=== PATIENT | female | born 1995 | race Caucasian/White ===

== ENCOUNTER 2018-04-23 14:22 | Emergency (ER) | payer OTHER ==
[~2018-04-23] VITALS: Ht 157.5 cm; Wt 103.2 kg
[2018-04-23] MEDS ORDERED: SPIR-10 PO (16:59)
[2018-04-23] MEDS ORDERED: METO50TA7 PO (16:59)
[2018-04-23] MEDS ORDERED: CHLO125TA (16:59)
[2018-04-23] MEDS ORDERED: ALOG25TA PO (16:59)
[2018-04-23] MEDS ORDERED: SIMV20TA2 PO (16:59)
[2018-04-23] MEDS ORDERED: IBUP-1114 PO (16:59)
[2018-04-23] MEDS ORDERED: MONO0.25 PO (16:59)
[2018-04-23] MEDS ORDERED: METF10004 PO (16:59)
[2018-04-23] MEDS ORDERED: METHOCARBAMOL 750 MG TAB PO ONE (17:30)
[2018-04-23] MEDS ORDERED: KETOROLAC TROMETHAMINE 10 MG TAB PO ONE (17:30)
[2018-04-23] MEDS ORDERED: KETO10TAB PO (17:52)
[2018-04-23] MEDS ORDERED: CYCL5TAB PO (17:52)
[2018-04-23 18:01] VITALS: BP 163/97
[2018-05-10] MEDS ORDERED: TOPR25TA13 PO (20:22)
== END 2018-04-23 18:04 | disposition home or self-care (01) ==
LOC: M ED 14:22
DX: S39.012A Strain of muscle, fascia and tendon of lower back, initial encounter (principal); X58.XXXA Exposure to other specified factors, initial encounter; Y92.89 Other specified places as the place of occurrence of the external cause; R20.0 Anesthesia of skin; E11.9 Type 2 diabetes mellitus without complications; I10 Essential (primary) hypertension; E78.5 Hyperlipidemia, unspecified; Z88.0 Allergy status to penicillin

== ENCOUNTER 2018-05-10 14:56 | Inpatient (IN) | payer OTHER ==
[~2018-05-10] VITALS: Ht 157.5 cm; Wt 100.2 kg
[~2018-05-10 14:56] MED LIST: ALOG25TA PO; CHLO125TA; CYCL5TAB PO; IBUP-1114 PO; KETO10TAB PO; METF10004 PO; METO50TA7 PO; MONO0.25 PO; SIMV20TA2 PO; SPIR-10 PO
[2018-05-10 17:50] VITALS: BP 142/85
[2018-05-10] MEDS ORDERED: GLUCOSE 4 GM CHEW TABLET PO PRN (19:15)
[2018-05-10] MEDS ORDERED: GLUCAGON FOR INJ 1 MG VIAL (J1610) SC PRN (19:15)
[2018-05-10] MEDS ORDERED: DEXTROSE 50% 50 ML SYRINGE IV PRN (19:15)
[2018-05-10] MEDS ORDERED: diazePAM 5 MG TAB PO PRN (19:15)
--- NOTE | 2018-05-10 19:24 | HPEPDOC ---
Project Landscape Architect Note DATE OF ADMISSION: May 10, 2018 at 17:40 SOURCE OF ADMISSION INFORMATION: [facility] records and patient CHIEF COMPLAINT: Cauda Equina syndrome HISTORY OF PRESENT ILLNESS: 22F pmh HTN, PCOS, DM2, HLD, presented to [facility] ED on 05/06/18 complaining of bilateral lower extremity weakness after bending forward and feeling a flex ing sensation a few days earlier. At first she felt pain and later developed weakness with urinary incontinence and saddle region anesthesia. Lumbar Spine MRI on 05/06/18 showed, Disc protrusion with moderate canal stenosis is present at L3-L4 vertebral level. Disc protrusion with severe canal stenosis and compression of the cauda equine nerve roots is present at L4-L5 vertebral level. Disc bulging with moderate canal [id number]. The conus medullaris is positioned at L2 vertebral levelno increased signal in the spinal cord. She was evaluated by Dr. Bazzi who performed a L3-L5 decompressive laminectomy with L4/L5 and L5/S1 discectomies without complications. She reports that the strength in her legs improved significantly since the surgery, but reports weakness in her ankles and some persistent sensory loss in her feet. She initially was unable to have a bowel movement, but was able to have a small bowel movement on 05/10/18. She was evaluated by therapy and found to have significant mobility and ADL impairment and deemed medically appropriate for discharge to ARU on 05/10/18. REVIEW OF SYSTEMS: The following is a completed review of systems and has been reviewed. Review of systems otherwise unremarkable. PAIN: Patient self reports no pain EYES: Negative for recent vision changes EARS, NOSE, & THROAT:denies throat or ear pain, no dysphagia CARDIOVASCULAR: denies chest pain or palpitations PULMONARY: Negative. Denies shortness of breath GASTROINTESTINAL: +fecal incontinece GENITOURINARY: +urinary incontinence MUSCULOSKELETAL: bilateral LE weakness NEUROLOGICAL: +cauda equina HEMATOLOGICAL: Negative SKIN: +sacral pressure ulcer, laminectomy incision PSYCHIATRIC: Unremarkable All other review of systems found to be negative. PAST MEDICAL HISTORY: as per HPI PAST SURGICAL HISTORY: Dental Surgery, Tonsillectomy ALLERGIES: Please see below. MEDICATIONS: Please see below. 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 GENERAL: Pleasant and cooperative. No acute distress. HEENT: PERRL. Extraocular movements intact. Clear conjunctiva CARDIOVASCULAR: Regular rate and rhythm. No murmurs, rubs, or gallops LUNGS: Clear to auscultation bilaterally. No wheezes. No rhonchi ABDOMEN: Soft, nontender, nondistended. Positive bowel sounds. Normal active bowel sounds NEUROLOGICAL: Alert and oriented times three. Cranial nerves II through XII grossly intact. EXTREMITIES: 5\5 strength bilateral upper extremities. 4/5 bilateral hip flexors, 4/5 bilat knee extensors, 3/5 left ankle DF (lacking L5 contribution and unable to activate peroneus longus/brevis) 1/5 EHL, 3/5 ankle PF on left 0/5 right ankle DF or EHL, 2/5 ankle PF Sensation diminished to light touch right L4-S2 dermatomes, otherwise intact to light touch in all 4 limbs (-) Babinksi bilat, (-) clonus SKIN: lumbar incision c/d/i no surrounding erythema or induration, +sacral ulcer IMAGING: Imaging documentation personally reviewed by record FUNCTIONAL STATUS: Premorbid: Independent with all activities of daily life as well as mobility On Admission: max assist for Lower body dressing, total assist toileting, Max assist functional transfers, standing max x 2 using RW GOALS: CG-SBA for ambulation using a RW and stairs, independent in wheelchair mobility, Mod-I dressing, bathing, toileting, family training, assess for DME needs, medical optimization. ASSESSMENT:22-year-old F with past medical history of PCOS and HTN who presents status post cauda equina syndrome: PLAN: 1. Rehab: PT/OT and assess for DME-multipodus boots while in bed to stretch heel cords 2. Neuro: cauda equina syndrome s/p L3-L5 decompressive laminectomy with L4/L5 a nd L5/S1 discectomies performed 05/06/18, conus medullaris at L2 level-unclear at this time if spinal cord was affected in the setting of post-op edema, however inital imaging did not show cord signal abnormalitiies at L2 level -will monitor and manage lower motor neuron effects on bowel and bladder which usually present with low tone and incontinence -avoid NSAIDs, heavy lifting, and f/u with neurosurgery 3. CArdio:pmg HTN and HLDc/u home meds-medicne consulted 4. Endo: pmh PCOS and DM c/u spironolactone, metformin, and insulin coverage 5. Pain: oxycodone prn, gabapentin for neuropathic pain, will decrease valium dosing and hold for AMS or lethargy 6. : f/u admisison UA and Ucx, c/u aguilar for now 7. GI ppx: protonix, optimize bowel regimen, will order KUB and consider bulking agents 8. DVT ppx: heparin 9. SKin: turn q2, barrier cream to sacrum BID, optifoam to lumbar incision 10. DIspo: TBD POST ADMISSION PHYSICIAN EVALUATION: Medical and functional status: Description of medical status, medical assessment: As above. Rehabilitation diagnosis and current and prior cold morbid medical conditions as above. Risk of complications and plans to mitigate them as above. Description of functional status current status is as above. Prior status as above. Status compared to preadmission: There are no clinically significant differences between the patient's current status and the information described on the preadmission screening document. Treatment plan anticipated: Treatment plan is as described above. Required disciplines including physical therapy, occupational therapy, others as noted abov. Intensity of services: 3 hours a day, 6 days a week. Special considerations: There are no specific special or safety considerations that would likely preclude immediate implementation of an intensive rehabilitation program or subsequently influence the plan of care. ATTESTATION: Considering all the information above, it is my best judgment that this patient requires intensive rehabilitation therapy as described above and an inpatient hospital environment due to the complexity of nursing, medical, and rehabilitation needs required by the patient. Furthermore, this patient can reasonably be expected to participate in an benefit from an inpatient rehabilitation stay with an interdisciplinary team approach to the delivery of rehabilitation care under the direction and supervision of rehabilitation physician. PROGNOSIS: Excellent ESTIMATED LENGTH OF STAY:21-28 days. PROJECTED DISCHARGE DESTINATION: Home with family support and any durable medical equipment required to increase functional safety and mobility TIME SPENT COUNSELING AND COORDINATING INITIAL CARE: Greater than 70 minutes. Vital Signs Vital Signs Date Time Temp Pulse Resp B/P (MAP) Pulse Ox O2 Delivery O2 Flow Rate FiO2 05/10/18 17:50 95.8 53 18 142/85 (104) 95 Home Medications Scheduled ([place]-Linyah 0.25-35 mg-Mcg) 1 Tab Tab, 1 TAB PO DAILY, (Reported) HOME MED (Heparin Sodium) 5,000 Unit/5 Ml Inj, 5,000 UNIT SC TID, (Reported) GIVEN AT [facility] (Previfem 0.25-35 mg-Mcg) 1 Tab Tab, 1 TAB PO DAILY, (Reported) HOME MED Alogliptin Benzoate (Alogliptin) 25 Mg Tab, 25 MG PO DAILY, (Reported) HOME MED Chlorthalidone (Chlorthalidone) 50 Mg Tab, 25 MG PO DAILY, (Reported) HOME MED Gabapentin (Gabapentin) 300 Mg Cap, 300 MG PO TID, (Reported) HOME MED Glycerin (Glycerin Adult) 2 Gm Sup, 1 EA [place] DAILY, (Reported) Metformin Hydrochloride (Metformin HCl) 1,000 Mg Tab, 1,000 MG PO BIDWM, (Reported) HOME MED Metoprolol Succinate (Toprol Xl) 25 Mg Tab, 25 MG PO DAILY, (Reported) GIVEN AT [facility] Metoprolol Tartrate (Metoprolol Tartrate) 50 Mg Tab, 50 MG PO DAILY, (Reported) HOME MED Prednisone (Prednisone) 10 Mg Tab, 10 MG PO DAILY, (Reported) NEW MED FROM [facility] Senna (Senna-Lax) 8.6 Mg Tab, 2 TAB PO QHS, (Reported) Simvastatin (Simvastatin) 20 Mg Tab, 20 MG PO QHS, (Reported) HOME MED Spironolactone (Spironolactone) 25 Mg Tab, 25 MG PO DAILY, (Reported) HOME MED Scheduled PRN Acetaminophen (Acetaminophen) 325 Mg Tab, 650 MG PO Q4H PRN for PAIN, (Reported) Diazepam (Diazepam) 5 Mg Tab, 5 MG PO Q6H PRN for MUSCLE SPASMS, (Reported) GIVEN AT [facility] Oxycodone HCl (Oxycodone HCl) 5 Mg Tab, 5 MG PO Q4H PRN for PAIN, (Reported) GIVEN AT [facility] Polyethylene Glycol (Miralax) 1 Pow Pow, 17 GM PO DAILY PRN for CONSTIPATION, (Reported) dilute in 8 ounces of water or juice Allergies Coded Allergies: Penicillins (Verified Allergy, Unknown, 05/10/18) BRITTNY JENSEN MD May 10, 2018 19:24
[2018-05-10 20:00] VITALS: BP 128/86
[2018-05-10] MEDS ORDERED: MIRA3350 PO (20:22)
[2018-05-10] MEDS ORDERED: GLYC2SUP PR (20:22)
[2018-05-10] MEDS ORDERED: CHLO50TA PO (20:22)
[2018-05-10] MEDS ORDERED: TOPR25TA PO (20:22)
[2018-05-10] MEDS ORDERED: [UNRECOGNIZED DRUG - CODE] SC (20:22)
[2018-05-10] MEDS ORDERED: PREVTAB2 PO (20:22)
[2018-05-10] MEDS ORDERED: OXYC-517 PO (20:22)
[2018-05-10] MEDS ORDERED: DIAZ5TAB PO (20:22)
[2018-05-10] MEDS ORDERED: ACET1TAB55 PO (20:22)
[2018-05-10] MEDS ORDERED: PRED10TA2 PO (20:22)
[2018-05-10] MEDS ORDERED: SENN18TA PO (20:22)
[2018-05-10] MEDS ORDERED: GABA-843 PO (20:22)
[2018-05-10] MEDS: HumaLOG INSULIN (NovoLOG) PER UNIT SC SCH (21:00)
[2018-05-10] MEDS: SIMVASTATIN 20 MG TAB PO SCH (22:39)
[2018-05-10] MEDS: GABAPENTIN 300 MG CAP PO SCH (22:39)
[2018-05-10] MEDS: BOUDREAUX'S BUTT PASTE 4OZ TOP SCH (22:39)
[2018-05-10] MEDS: DOCUSATE SODIUM 100 MG CAP PO SCH (22:39)
[2018-05-10] MEDS: HEPARIN SOD (PORCINE) 5000 UNITS/ML VIAL SQ SCH (22:40)
[2018-05-10] MEDS: ACETAMINOPHEN TAB 650MG DOSE (2X325MG) PO PRN (22:40)
[2018-05-11 06:00] VITALS: BP 129/86
[2018-05-11] MEDS: HEPARIN SOD (PORCINE) 5000 UNITS/ML VIAL SQ SCH ×3 (06:00→21:18)
[2018-05-11 06:56] LABS: BASO # 0.1 10^3/uL (0.0-0.2); BASO % 0.4 % (0.0-1.0); EOS # 0.3 10^3/uL (0.0-0.50); EOS % 1.9 % (0.0-3.0); HEMATOCRIT 40.5 % (36.0-47.0); HEMOGLOBIN 13.9 g/dl (12.0-15.5); LYMPH # 2.2 10^3/uL (1.5-6.5); LYMPH % 16.2 % (24.0-44.0); MEAN CORPUSCULAR HEMOGLOBIN 29.3 pg (27.0-33.0); MEAN CORPUSCULAR HGB CONC 34.3 g/dl (32.0-36.5); MEAN CORPUSCULAR VOLUME 85.4 fl (80.0-96.0); MONO % 7.6 % (0.0-5.0); NEUTROPHILS # 9.8 10^3/uL (1.8-7.7); NEUTROPHILS % 73.2 % (36.0-66.0); PLATELET COUNT, AUTOMATED 407 10^3/uL (150-450); RED BLOOD COUNT 4.74 10^6/uL (4.00-5.40); WHITE BLOOD COUNT 13.4 10^3/uL (4.0-10.0)
[2018-05-11] MEDS: oxyCODONE 5MG TAB PO PRN ×2 (07:03→15:27)
[2018-05-11 07:22] LABS: ALT/SGPT 39 U/L (12-78); BILIRUBIN,TOTAL 0.6 MG/DL (0.2-1.0); BLOOD UREA NITROGEN 23 MG/DL (7-18); CALCIUM LEVEL 9.5 MG/DL (8.5-10.1); CARBON DIOXIDE LEVEL 31 MEQ/L (21-32); CHLORIDE LEVEL 95 MEQ/L (98-107); CREATININE FOR GFR 1.02 MG/DL (0.55-1.30); GLOMERULAR FILTRATION RATE > 60.0 (>60); GLUCOSE, FASTING 161 MG/DL (70-100); POTASSIUM SERUM 3.4 MEQ/L (3.5-5.1); SODIUM LEVEL 135 MEQ/L (136-145); TOTAL PROTEIN 8.3 GM/DL (6.4-8.2)
[2018-05-11] MEDS ORDERED: POTASSIUM CHLORIDE 10 MEQ SR TABLET PO ONE (08:45)
[2018-05-11] MEDS: metFORMIN (GLUCOPHAGE) 1000 MG TABLET PO SCH ×2 (08:53→16:58)
[2018-05-11] MEDS: CHLORTHALIDONE 25 MG TAB PO SCH (08:54)
[2018-05-11] MEDS: SPIRONOLACTONE 25 MG TAB PO SCH (08:54)
[2018-05-11] MEDS: HumaLOG INSULIN (NovoLOG) PER UNIT SC SCH ×4 (08:54→21:00)
[2018-05-11] MEDS: GABAPENTIN 300 MG CAP PO SCH ×3 (08:54→21:14)
[2018-05-11] MEDS: predniSONE 10 MG TAB PO SCH (08:54)
[2018-05-11] MEDS: BOUDREAUX'S BUTT PASTE 4OZ TOP SCH ×3 (08:57→21:00)
[2018-05-11] MEDS: METOPROLOL SUCC *XL* 25MG TAB (TopROL *XL*) PO SCH (08:57)
[2018-05-11] MEDS: DOCUSATE SODIUM 100 MG CAP PO SCH ×3 (09:02→21:14)
--- NOTE | 2018-05-11 10:45 | REP ---
KUB ABDOMEN/PELVIS: Two KUB films of abdomen and pelvis performed. Mild fecal material and air is seen throughout the colon. There is no evidence of small bowel obstruction. No abnormal calcifications are seen. IMPRESSION: Mild fecal retention. Electronically Signed by Stevenson iVncent MD 05/11/2018 07:51 P
--- NOTE | 2018-05-11 12:16 | CR.PDOC ---
General Date of Consultation: May 11, 2018 Consultation CONSULTATION REPORT FOR: Dr Teresa REASON FOR CONSULTATION: Medical Management ATTENDING: Dr. Jeremias Mishra PCP: Dr Humphrey HPI: 22F presented to [facility] ED on 05/06/18 with bilateral lower extremity weakness after bending forward and feeling a popping sensation a few days earlier. At first she felt pain and later developed weakness with urinary incontinence and saddle region anesthesia. Lumbar Spine MRI on 05/06/18 showed Disc protrusion with moderate canal stenosis is present at L3-L4 vertebral level.,disc protrusion with severe canal stenosis and compression of the cauda e quine nerve roots is present at L4-L5 vertebral level. Disc bulging with moderate canal stenosis L5-S1. The pt was evaluated by Dr. Bazzi who performed a L3-L5 decompressive laminectomy with L4/L5 and L5/S1 discectomies without complications. Pt states strength in her legs improved significantly since the surgery, but reports weakness in her ankles and some persistent sensory loss in her feet. She states she has had 2 BM this AM and states sensation is normal. The pt was transferred to the care of YFN Horan, 05/10/18. No acute medical complaints today. Denies any fevers, chills, weakness, fatigue, Headache, Chest Pain, Shortness of breath, cough, palpitations, abdominal pain, N/V/D or changes in bowel or bladder habits. PMHx/PSHx: HTN HLD DM PCOS Obesity. 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 PE: GEN: 22yoF, appears stated age. Well-nourished, well developed. No acute dist ress. Alert and oriented x 3. HEENT: Normocephalic, atraumatic. Sclera are nonicteric. Conjunctiva without injection. Moist mucous membranes. CHEST: Regular rate and rhythm, +S1, +S2 LUNGS: Clear to auscultation bilaterally. No wheezes, rales, or rhonchi. Breathing appears symmetric and easy. ABD: Round, soft, non-tender, non-distended. +Bowel sounds throughout. No rebound or guarding. No costovertebral angle tenderness. EXT: Pulses 2+ bilaterally dorsalis pedis and radial. No lower extremity edema appreciated. SKIN: [place], dry, warm. No rashes. NEURO: Alert and oriented x 3. No focal deficits appreciated. A&P: 22F presented to [facility] ED on 05/06/18 with bilateral lower extremity weakness after bending forward and feeling a popping sensation a few days earlier. At first she felt pain and later developed weakness with urinary incontinence and saddle region anesthesia. Lumbar Spine MRI on 05/06/18 showed Disc protrusion with moderate canal stenosis is present at L3-L4 vertebral level.,disc protrusion with severe canal stenosis and compression of the cauda equine nerve roots is present at L4-L5 vertebral level. Disc bulging with moderate canal stenosis L5-S1. The pt was evaluated by Dr. Bazzi who performed a L3-L5 decompressive laminectomy with L4/L5 and L5/S1 discectomies without complications. Pt states strength in her legs improved significantly since the surgery, but reports weakness in her ankles and some persistent sensory loss in her feet. She states she has had 2 BM this AM and states sensation is normal. The pt was transferred to the care of YFN Horan, 05/10/18. 1. L3-L5 decompressive laminectomy with L4/L5 and L5/S1 discectomies. Mgmt as per Neurosurgery, Dr Bazzi. [facility]. Outpt F/U with Dr Bazzi. Mgmt as per Dr Malick COULTER. PT/OT as per Dr Malick COULTER. Pain control as per Dr Malick COULTER. Bowel care as per Dr Malick COULTER. DVT prophylaxis as per Dr Malick COULTER. SQ Heparin. Disposition as per Dr Malick COULTER. Urinary retention/Guerra catheter as per Dr Malick COULTER. 2. HTN. Chlorthalidone/Toprol XL. BP 137/83. Monitor. 3. HLD Zocor. 4. DM. CC diet SSI. Metformin. BS 155-192. 5. PCOS. Metformin/Aldactone. 6. Hypokalemia. S/P po supplement x 1 today. BMP in AM. 7. Leukocytosis. Pt is afebrile. Recheck CBC in AM. Vital Signs/I&O Vital Signs Date Time Temp Pulse Resp B/P (MAP) Pulse Ox O2 Delivery O2 Flow Rate FiO2 05/11/18 08:57 110 137/83 05/11/18 07:33 18 05/11/18 06:00 97.9 95 I&O- Last 24 Hours up to 6 AM 05/11/18 06:00 Intake Total 440 ml Output Total 450 ml Balance -10 ml Laboratory Data Labs 24H Laboratory Tests 2 05/10/18 22:21: Bedside Glucose (Misc Panel) 192H 05/11/18 06:37: Immature Granulocyte % (Auto) 0.7, White Blood Count 13.4H, Red Blood Count 4.74, Hemoglobin 13.9, Hematocrit 40.5, Mean Corpuscular Volume 85.4, Mean Corpuscular Hemoglobin 29.3, Mean Corpuscular Hemoglobin Concent 34.3, Red Cell Distribution Width 12.0, Platelet Count 407, Neutrophils (%) (Auto) 73.2H, Lymphocytes (%) (Auto) 16.2L, Monocytes (%) (Auto) 7.6H, Eosinophils (%) (Auto) 1.9, Basophils (%) (Auto) 0.4, Neutrophils # (Auto) 9.8H, Lymphocytes # (Auto) 2.2, Monocytes # (Auto) 1.0H, Eosinophils # (Auto) 0.3, Basophils # (Auto) 0.1, Nucleated Red Blood Cells % (auto) 0.0, Anion Gap 9, Glomerular Filtration Rate > 60.0, Blood Urea Nitrogen 23H, Creatinine 1.02, Sodium Level 135L, Potassium Level 3.4L, Chloride Level 95L, Carbon Dioxide Level 31, Calcium Level 9.5, Aspartate Amino Transf (AST/SGOT) 21, Alanine Aminotransferase (ALT/SGPT) 39, Alkaline Phosphatase 90, Total Bilirubin 0.6, Total Protein 8.3H, Albumin 3.0L, Albumin/Globulin Ratio 0.57L 05/11/18 06:40: Bedside Glucose (Misc Panel) 155H CBC/BMP Laboratory Tests 05/11/18 06:37 Red Blood Count 4.74, Mean Corpuscular Volume 85.4, Mean Corpuscular Hemoglobin 29.3, Mean Corpuscular Hemoglobin Concent 34.3, Red Cell Distribution Width 12.0, Neutrophils (%) (Auto) 73.2 H, Lymphocytes (%) (Auto) 16.2 L, Monocytes (%) (Auto) 7.6 H, Eosinophils (%) (Auto) 1.9, Basophils (%) (Auto) 0.4, Neutrophils # (Auto) 9.8 H, Lymphocytes # (Auto) 2.2, Monocytes # (Auto) 1.0 H, Eosinophils # (Auto) 0.3, Basophils # (Auto) 0.1, Calcium Level 9.5, Aspartate Amino Transf (AST/SGOT) 21, Alanine Aminotransferase (ALT/SGPT) 39, Alkaline Phosphatase 90, Total Bilirubin 0.6, Total Protein 8.3 H, Albumin 3.0 L Allergies Coded Allergies: Penicillins (Verified Allergy, Unknown, 05/10/18) HIVES Home Medications Scheduled ([place]-Linyah 0.25-35 mg-Mcg) 1 Tab Tab, 1 TAB PO DAILY, (Reported) HOME MED (Heparin Sodium) 5,000 Unit/5 Ml Inj, 5,000 UNIT SC TID, (Reported) GIVEN AT [facility] (Previfem 0.25-35 mg-Mcg) 1 Tab Tab, 1 TAB PO DAILY, (Reported) HOME MED Alogliptin Benzoate (Alogliptin) 25 Mg Tab, 25 MG PO DAILY, (Reported) HOME MED Chlorthalidone (Chlorthalidone) 50 Mg Tab, 25 MG PO DAILY, (Reported) HOME MED Gabapentin (Gabapentin) 300 Mg Cap, 300 MG PO TID, (Reported) HOME MED Glycerin (Glycerin Adult) 2 Gm Sup, 1 EA [place] DAILY, (Reported) Metformin Hydrochloride (Metformin HCl) 1,000 Mg Tab, 1,000 MG PO BIDWM, (Reported) HOME MED Metoprolol Succinate (Toprol Xl) 25 Mg Tab, 25 MG PO DAILY, (Reported) GIVEN AT [facility] Metoprolol Tartrate (Metoprolol Tartrate) 50 Mg Tab, 50 MG PO DAILY, (Reported) HOME MED Prednisone (Prednisone) 10 Mg Tab, 10 MG PO DAILY, (Reported) NEW MED FROM [facility] Senna (Senna-Lax) 8.6 Mg Tab, 2 TAB PO QHS, (Reported) Simvastatin (Simvastatin) 20 Mg Tab, 20 MG PO QHS, (Reported) HOME MED Spironolactone (Spironolactone) 25 Mg Tab, 25 MG PO DAILY, (Reported) HOME MED Scheduled PRN Acetaminophen (Acetaminophen) 325 Mg Tab, 650 MG PO Q4H PRN for PAIN, (Reported) Diazepam (Diazepam) 5 Mg Tab, 5 MG PO Q6H PRN for MUSCLE SPASMS, (Reported) GIVEN AT [facility] Oxycodone HCl (Oxycodone HCl) 5 Mg Tab, 5 MG PO Q4H PRN for PAIN, (Reported) GIVEN AT [facility] Polyethylene Glycol (Miralax) 1 Pow Pow, 17 GM PO DAILY PRN for CONSTIPATION, (Reported) dilute in 8 ounces of water or juice Maria Teresa Liang May 11, 2018 12:16
[2018-05-11 14:00] VITALS: BP 140/84
[2018-05-11 18:35] LABS: APPEARANCE, URINE CLOUDY (CLEAR); BACTERIA, URINE AUTO NEGATIVE (NEGATIVE); BILIRUBIN, URINE AUTO NEGATIVE (NEGATIVE); BLOOD, URINE BLOOD 2+ (NEGATIVE); COLOR, URINE AMBER (YELLOW); GLUCOSE, URINE (UA) AUTO 1+ mg/dL (NEGATIVE); KETONE, URINE AUTO NEGATIVE (NEGATIVE); LEUKOCYTE ESTERASE, URINE AUTO NEGATIVE (NEGATIVE); MUCUS, URINE LARGE (NEGATIVE); NITRITE, URINE AUTO NEGATIVE (NEGATIVE); PROTEIN, URINE AUTO 2+ mg/dL (NEGATIVE); RBC, URINE AUTO 106 /HPF (0-3); SPECIFIC GRAVITY URINE AUTO 1.029 (1.002-1.035); SQUAMOUS EPITHELIAL CELL UR AU 5 /HPF (0-6); WBC, URINE AUTO 8 /HPF (0-3)
[2018-05-11 20:00] VITALS: BP 158/92
[2018-05-11] MEDS: SIMVASTATIN 20 MG TAB PO SCH (21:14)
[2018-05-12] MEDS: HEPARIN SOD (PORCINE) 5000 UNITS/ML VIAL SQ SCH ×3 (05:45→20:58)
[2018-05-12 06:00] VITALS: BP 139/88
[2018-05-12 06:51] LABS: BASO # 0.1 10^3/uL (0.0-0.2); BASO % 0.4 % (0.0-1.0); EOS # 0.3 10^3/uL (0.0-0.50); EOS % 1.7 % (0.0-3.0); HEMATOCRIT 39.5 % (36.0-47.0); HEMOGLOBIN 13.2 g/dl (12.0-15.5); LYMPH % 26.5 % (24.0-44.0); MEAN CORPUSCULAR HGB CONC 33.4 g/dl (32.0-36.5); MEAN CORPUSCULAR VOLUME 86.8 fl (80.0-96.0); MONO # 1.3 10^3/uL (0.0-0.8); MONO % 8.6 % (0.0-5.0); NEUTROPHILS # 9.4 10^3/uL (1.8-7.7); PLATELET COUNT, AUTOMATED 409 10^3/uL (150-450); RED BLOOD COUNT 4.55 10^6/uL (4.00-5.40); WHITE BLOOD COUNT 15.1 10^3/uL (4.0-10.0)
[2018-05-12 07:21] LABS: BLOOD UREA NITROGEN 25 MG/DL (7-18); CALCIUM LEVEL 9.5 MG/DL (8.5-10.1); CARBON DIOXIDE LEVEL 31 MEQ/L (21-32); CHLORIDE LEVEL 94 MEQ/L (98-107); CREATININE FOR GFR 0.97 MG/DL (0.55-1.30); GLOMERULAR FILTRATION RATE > 60.0 (>60); GLUCOSE, FASTING 164 MG/DL (70-100); POTASSIUM SERUM 3.1 MEQ/L (3.5-5.1); SODIUM LEVEL 134 MEQ/L (136-145)
[2018-05-12] MEDS: GABAPENTIN 300 MG CAP PO SCH ×3 (09:22→20:58)
[2018-05-12] MEDS: SPIRONOLACTONE 25 MG TAB PO SCH (09:22)
[2018-05-12] MEDS: metFORMIN (GLUCOPHAGE) 1000 MG TABLET PO SCH ×2 (09:22→18:12)
[2018-05-12] MEDS: DOCUSATE SODIUM 100 MG CAP PO SCH ×3 (09:22→20:58)
[2018-05-12] MEDS: METOPROLOL SUCC *XL* 25MG TAB (TopROL *XL*) PO SCH (09:25)
[2018-05-12] MEDS: CHLORTHALIDONE 25 MG TAB PO SCH (09:25)
[2018-05-12] MEDS: predniSONE 10 MG TAB PO SCH (09:25)
[2018-05-12] MEDS: HumaLOG INSULIN (NovoLOG) PER UNIT SC SCH ×4 (09:26→20:59)
[2018-05-12] MEDS: BOUDREAUX'S BUTT PASTE 4OZ TOP SCH ×3 (09:27→21:00)
[2018-05-12 14:00] VITALS: BP 140/90
[2018-05-12 16:20] LABS: MAGNESIUM LEVEL 2.3 MG/DL (1.8-2.4)
[2018-05-12 16:27] VITALS: BP 139/96
[2018-05-12] MEDS ORDERED: POTASSIUM CHLORIDE 10 MEQ SR TABLET PO ONE (17:00)
[2018-05-12 20:00] VITALS: BP 156/97
[2018-05-12] MEDS: SIMVASTATIN 20 MG TAB PO SCH (20:59)
[2018-05-13] MEDS: HEPARIN SOD (PORCINE) 5000 UNITS/ML VIAL SQ SCH ×3 (05:12→21:20)
[2018-05-13 06:00] VITALS: BP 134/89
[2018-05-13 06:29] LABS: HEMATOCRIT 39.4 % (36.0-47.0); HEMOGLOBIN 13.4 g/dl (12.0-15.5); MEAN CORPUSCULAR HEMOGLOBIN 28.8 pg (27.0-33.0); MEAN CORPUSCULAR VOLUME 84.5 fl (80.0-96.0); PLATELET COUNT, AUTOMATED 424 10^3/uL (150-450); RED BLOOD COUNT 4.66 10^6/uL (4.00-5.40); WHITE BLOOD COUNT 14.9 10^3/uL (4.0-10.0)
[2018-05-13] MEDS: GABAPENTIN 300 MG CAP PO SCH ×3 (08:39→21:20)
[2018-05-13] MEDS: CHLORTHALIDONE 25 MG TAB PO SCH (08:39)
[2018-05-13] MEDS: METOPROLOL SUCC *XL* 25MG TAB (TopROL *XL*) PO SCH (08:39)
[2018-05-13] MEDS: predniSONE 10 MG TAB PO SCH (08:39)
[2018-05-13] MEDS: DOCUSATE SODIUM 100 MG CAP PO SCH ×3 (08:39→21:20)
[2018-05-13] MEDS: SPIRONOLACTONE 25 MG TAB PO SCH (08:39)
[2018-05-13] MEDS: metFORMIN (GLUCOPHAGE) 1000 MG TABLET PO SCH ×2 (08:39→17:45)
[2018-05-13] MEDS: BOUDREAUX'S BUTT PASTE 4OZ TOP SCH ×3 (08:40→21:21)
[2018-05-13] MEDS: HumaLOG INSULIN (NovoLOG) PER UNIT SC SCH ×4 (08:40→21:00)
[2018-05-13 14:00] VITALS: BP 152/90
[2018-05-13 20:00] VITALS: BP 158/88
[2018-05-13] MEDS: SIMVASTATIN 20 MG TAB PO SCH (21:20)
[2018-05-14] MEDS: HEPARIN SOD (PORCINE) 5000 UNITS/ML VIAL SQ SCH ×3 (05:36→21:31)
[2018-05-14 06:22] VITALS: BP 134/89
[2018-05-14] MEDS: HumaLOG INSULIN (NovoLOG) PER UNIT SC SCH ×4 (08:49→21:00)
[2018-05-14] MEDS: DOCUSATE SODIUM 100 MG CAP PO SCH ×3 (08:50→21:31)
[2018-05-14] MEDS: metFORMIN (GLUCOPHAGE) 1000 MG TABLET PO SCH ×2 (08:50→17:41)
[2018-05-14] MEDS: predniSONE 10 MG TAB PO SCH (08:50)
[2018-05-14] MEDS: BOUDREAUX'S BUTT PASTE 4OZ TOP SCH ×3 (08:50→21:00)
[2018-05-14] MEDS: SPIRONOLACTONE 25 MG TAB PO SCH (08:50)
[2018-05-14] MEDS: METOPROLOL SUCC *XL* 25MG TAB (TopROL *XL*) PO SCH (08:50)
[2018-05-14] MEDS: CHLORTHALIDONE 25 MG TAB PO SCH (08:50)
[2018-05-14] MEDS: GABAPENTIN 300 MG CAP PO SCH ×3 (08:50→21:31)
[2018-05-14 09:09] LABS: HEMATOCRIT 39.1 % (36.0-47.0); MEAN CORPUSCULAR HEMOGLOBIN 28.5 pg (27.0-33.0); MEAN CORPUSCULAR HGB CONC 33.2 g/dl (32.0-36.5); MEAN CORPUSCULAR VOLUME 85.7 fl (80.0-96.0); PLATELET COUNT, AUTOMATED 437 10^3/uL (150-450); RED BLOOD COUNT 4.56 10^6/uL (4.00-5.40); WHITE BLOOD COUNT 14.9 10^3/uL (4.0-10.0)
[2018-05-14 09:27] LABS: BLOOD UREA NITROGEN 25 MG/DL (7-18); CALCIUM LEVEL 9.2 MG/DL (8.5-10.1); CARBON DIOXIDE LEVEL 30 MEQ/L (21-32); CHLORIDE LEVEL 98 MEQ/L (98-107); CREATININE FOR GFR 0.94 MG/DL (0.55-1.30); GLOMERULAR FILTRATION RATE > 60.0 (>60); GLUCOSE, FASTING 140 MG/DL (70-100); POTASSIUM SERUM 3.4 MEQ/L (3.5-5.1); SODIUM LEVEL 136 MEQ/L (136-145)
[2018-05-14] MEDS ORDERED: POTASSIUM CHLORIDE 10 MEQ SR TABLET PO ONE (12:00)
--- NOTE | 2018-05-14 12:00 | IPNPDOC ---
Date Seen The patient was seen on 05/14/18. Progress Note HPI: 22F presented to [facility] ED on 05/06/18 with bilateral lower extremity weakness after bending forward and feeling a popping sensation a few days earlier. At first she felt pain and later developed weakness with urinary incontinence and saddle region anesthesia. Lumbar Spine MRI on 05/06/18 showed Disc protrusion with moderate canal stenosis is present at L3-L4 vertebral level.,disc protrusion with severe canal stenosis and compression of the cauda equine nerve roots is present at L4-L5 vertebral level. Disc bulging with moderate canal stenosis L5-S1. The pt was evaluated by Dr. Bazzi who performed a L3-L5 decompressive laminectomy with L4/L5 and L5/S1 discectomies without complications. Pt states strength in her legs improved significantly since the surgery, but rep orts weakness in her ankles and some persistent sensory loss in her feet. She states she has had 2 BM this AM and states sensation is normal. The pt was transferred to the care of YFN Horan, 05/10/18. The pt states she has been OOB today and feels she is getting stronger, paresthesia in feet B/L is less pronounced. Denies any fevers, chills, weakness, fatigue, Headache, Chest Pain, Shortness of breath, cough, palpitations, abdominal pain, N/V/D or changes in bowel or bladder habits. PMHx/PSHx: HTN HLD DM PCOS Obesity. BMI 39.6 dental surgery tonsillectomy PE: GEN: 22yoF, appears stated age. Well-nourished, well developed. No acute distress. Alert and oriented x 3. HEENT: Normocephalic, atraumatic. Sclera are nonicteric. Conjunctiva without injection. Moist mucous membranes. CHEST: Regular rate and rhythm, +S1, +S2 LUNGS: Clear to auscultation bilaterally. No wheezes, rales, or rhonchi. Breathing appears symmetric and easy. ABD: Round, soft, non-tender, non-distended. +Bowel sounds throughout. No rebound or guarding. No costovertebral angle tenderness. EXT: Pulses 2+ bilaterally dorsalis pedis and radial. No lower extremity edema appreciated. SKIN: [place], dry, warm. No rashes. NEURO: Alert and oriented x 3. No focal deficits appreciated. A&P: 22F presented to [facility] ED on 05/06/18 with bilateral lower extremity weakness after bending forward and feeling a popping sensation a few days earlier. At first she felt pain and later developed weakness with urinary incontinence and saddle region anesthesia. Lumbar Spine MRI on 05/06/18 showed Disc protrusion with moderate canal stenosis is present at L3-L4 vertebral level.,disc protrusion with severe canal stenosis and compression of the cauda equine nerve roots is present at L4-L5 vertebral level. Disc bulging with moderate canal stenosis L5-S1. The pt was evaluated by Dr. Bazzi who performed a L3-L5 decompressive laminectomy with L4/L5 and L5/S1 discectomies without complications. Pt states strength in her legs improved significantly since the surgery, but reports weakness in her ankles and some persistent sensory loss in her feet. She states she has had 2 BM this AM and states sensation is normal. The pt was transferred to the care of YFN Horan, 05/10/18. 1. L3-L5 decompressive laminectomy with L4/L5 and L5/S1 discectomies. Mgmt as per Neurosurgery, Dr Bazzi. [facility]. Outpt F/U with Dr Bazzi. Mgmt as per Dr Malick COULTER. PT/OT as per Dr Malick COULTER. Pain control as per Dr Malick COULTER. Bowel care as per Dr Malick COULTER. DVT prophylaxis as per Dr Malick COULTER. SQ Heparin. Disposition as per Dr Malick COULTER. Urinary retention/Guerra catheter as per Dr Malick COULTER. 2. HTN. Chlorthalidone/Toprol XL. Monitor. 3. HLD Zocor. 4. DM. CC diet SSI. Metformin. 5. PCOS. Metformin/Aldactone. 6. Hypokalemia. S/P po supplement x 1 today. BMP in AM. 7. Leukocytosis. Pt is afebrile. Recheck CBC in AM. VS, I&O, 24H, Fishbone Vital Signs/I&O Vital Signs Date Time Temp Pulse Resp B/P (MAP) Pulse Ox O2 Delivery O2 Flow Rate FiO2 05/14/18 08:50 90 134/89 05/14/18 06:22 97.2 16 96 I&O- Last 24 Hours up to 6 AM 3/25/19 06:00 Intake Total 530 ml Output Total 1150 ml Balance -620 ml Laboratory Data 24H LABS Laboratory Tests 2 05/13/18 16:55: Bedside Glucose (Misc Panel) 321H 05/13/18 19:34: Bedside Glucose (Misc Panel) 222H 05/14/18 05:34: Bedside Glucose (Misc Panel) 156H 05/14/18 08:47: Nucleated Red Blood Cells % (auto) 0.0, Anion Gap 8, Glomerular Filtration Rate > 60.0, Blood Urea Nitrogen 25H, Creatinine 0.94, Sodium Level 136, Potassium Level 3.4L, Chloride Level 98, Carbon Dioxide Level 30, Calcium Level 9.2 05/14/18 11:44: Bedside Glucose (Misc Panel) 178H CBC/BMP Laboratory Tests 05/14/18 08:47 Red Blood Count 4.56, Mean Corpuscular Volume 85.7, Mean Corpuscular Hemoglobin 28.5, Mean Corpuscular Hemoglobin Concent 33.2, Red Cell Distribution Width 12.0, Calcium Level 9.2 Microbiology Microbiology 05/11/18 Urine Culture - Final, Complete Maria Teresa Liang May 14, 2018 11:59
[2018-05-14 14:00] VITALS: BP 137/92
[2018-05-14] MEDS: MIRALAX *UNIT DOSE* 17GM PACKET PO PRN (14:21)
[2018-05-14 20:00] VITALS: BP 152/88
[2018-05-14] MEDS: SIMVASTATIN 20 MG TAB PO SCH (21:31)
[2018-05-15] MEDS: HEPARIN SOD (PORCINE) 5000 UNITS/ML VIAL SQ SCH ×3 (05:30→21:07)
[2018-05-15 05:37] VITALS: BP 135/97
[2018-05-15 07:04] LABS: HEMATOCRIT 38.2 % (36.0-47.0); MEAN CORPUSCULAR HEMOGLOBIN 28.7 pg (27.0-33.0); MEAN CORPUSCULAR VOLUME 84.3 fl (80.0-96.0); PLATELET COUNT, AUTOMATED 437 10^3/uL (150-450); RED BLOOD COUNT 4.53 10^6/uL (4.00-5.40)
[2018-05-15 07:38] LABS: ALT/SGPT 28 U/L (12-78); BILIRUBIN,TOTAL 0.4 MG/DL (0.2-1.0); BLOOD UREA NITROGEN 25 MG/DL (7-18); CARBON DIOXIDE LEVEL 29 MEQ/L (21-32); CHLORIDE LEVEL 97 MEQ/L (98-107); CREATININE FOR GFR 0.96 MG/DL (0.55-1.30); GLOMERULAR FILTRATION RATE > 60.0 (>60); GLUCOSE, FASTING 161 MG/DL (70-100); MAGNESIUM LEVEL 2.1 MG/DL (1.8-2.4); SODIUM LEVEL 135 MEQ/L (136-145); TOTAL PROTEIN 7.4 GM/DL (6.4-8.2)
[2018-05-15] MEDS: SPIRONOLACTONE 25 MG TAB PO SCH ×2 (08:21→21:07)
[2018-05-15] MEDS: MIRALAX *UNIT DOSE* 17GM PACKET PO PRN (08:21)
[2018-05-15] MEDS: predniSONE 10 MG TAB PO SCH (08:22)
[2018-05-15] MEDS: DOCUSATE SODIUM 100 MG CAP PO SCH ×3 (08:22→21:06)
[2018-05-15] MEDS: METOPROLOL SUCC *XL* 25MG TAB (TopROL *XL*) PO SCH (08:22)
[2018-05-15] MEDS: HumaLOG INSULIN (NovoLOG) PER UNIT SC SCH ×4 (08:22→20:51)
[2018-05-15] MEDS: CHLORTHALIDONE 25 MG TAB PO SCH (08:22)
[2018-05-15] MEDS: GABAPENTIN 300 MG CAP PO SCH ×3 (08:22→21:06)
[2018-05-15] MEDS: metFORMIN (GLUCOPHAGE) 1000 MG TABLET PO SCH ×2 (08:22→17:15)
[2018-05-15] MEDS: BOUDREAUX'S BUTT PASTE 4OZ TOP SCH ×3 (08:23→21:11)
[2018-05-15] MEDS ORDERED: POTASSIUM CHLORIDE 10 MEQ SR TABLET PO ONE ×2 (09:45→13:00)
--- NOTE | 2018-05-15 11:05 | IPNPDOC ---
Date Seen The patient was seen on 05/15/18. Progress Note HPI: 22F presented to [facility] ED on 05/06/18 with bilateral lower extremity weakness after bending forward and feeling a popping sensation a few days earlier. At first she felt pain and later developed weakness with urinary incontinence and saddle region anesthesia. Lumbar Spine MRI on 05/06/18 showed Disc protrusion with moderate canal stenosis is present at L3-L4 vertebral level.,disc protrusion with severe canal stenosis and compression of the cauda equine nerve roots is present at L4-L5 vertebral level. Disc bulging with moderate canal stenosis L5-S1. The pt was evaluated by Dr. Bazzi who performed a L3-L5 decompressive laminectomy with L4/L5 and L5/S1 discectomies without complications. Pt states strength in her legs improved significantly since the surgery, but rep orts weakness in her ankles and some persistent sensory loss in her feet. She states she has had 2 BM this AM and states sensation is normal. The pt was transferred to the care of YFN Horan, 05/10/18. The pt states she has been OOB today and feels she is getting stronger day by day, paresthesia in feet B/L is less pronounced. Denies any fevers, chills, weakness, fatigue, Headache, Chest Pain, Shortness of breath, cough, palpitations, abdominal pain, N/V/D or changes in bowel or bladder habits. PMHx/PSHx: HTN HLD DM PCOS Obesity. BMI 39.6 dental surgery tonsillectomy PE: GEN: 22yoF, appears stated age. Well-nourished, well developed. No acute distress. Alert and oriented x 3. HEENT: Normocephalic, atraumatic. Sclera are nonicteric. Conjunctiva without i njection. Moist mucous membranes. CHEST: Regular rate and rhythm, +S1, +S2 LUNGS: Clear to auscultation bilaterally. No wheezes, rales, or rhonchi. Breathing appears symmetric and easy. ABD: Round, soft, non-tender, non-distended. +Bowel sounds throughout. No rebound or guarding. No costovertebral angle tenderness. EXT: Pulses 2+ bilaterally dorsalis pedis and radial. No lower extremity edema appreciated. SKIN: [place], dry, warm. No rashes. NEURO: Alert and oriented x 3. No focal deficits appreciated. A&P: 22F presented to [facility] ED on 05/06/18 with bilateral lower extremity weakness after bending forward and feeling a popping sensation a few days earlier. At first she felt pain and later developed weakness with urinary incontinence and saddle region anesthesia. Lumbar Spine MRI on 05/06/18 showed Disc protrusion with moderate canal stenosis is present at L3-L4 vertebral level.,disc protrusion with severe canal stenosis and compression of the cauda equine nerve roots is present at L4-L5 vertebral level. Disc bulging with moderate canal stenosis L5-S1. The pt was evaluated by Dr. Bazzi who performed a L3-L5 decompressive laminectomy with L4/L5 and L5/S1 discectomies without complications. Pt states strength in her legs improved significantly since the surgery, but reports weakness in her ankles and some persistent sensory loss in her feet. She states she has had 2 BM this AM and states sensation is normal. The pt was transferred to the care of YFN Horan, 05/10/18. 1. L3-L5 decompressive laminectomy with L4/L5 and L5/S1 discectomies. Mgmt as per Neurosurgery, Dr Bazzi. [facility]. Outpt F/U with Dr Bazzi. Mgmt as per Dr Malick COULTER. PT/OT as per Dr Malick COULTER. Pain control as per Dr Malick COULTER. Bowel care as per Dr Malick COULTER. DVT prophylaxis as per Dr Malick COULTER. SQ Heparin. Disposition as per Dr Malick COULTER. Urinary retention/Guerra catheter as per Dr Malick COULTER. 2. HTN. Chlorthalidone/Toprol XL. Monitor. 3. HLD Zocor. 4. DM. CC diet SSI. Metformin. 5. PCOS. Metformin/Aldactone. 6. Hypokalemia. S/P po supplement x 2 doses today. mag WNL. BMP in AM. 7. Leukocytosis. Pt is afebrile. Asymptomatic. Monitor. VS, I&O, 24H, Fishbone Vital Signs/I&O Vital Signs Date Time Temp Pulse Resp B/P (MAP) Pulse Ox O2 Delivery O2 Flow Rate FiO2 05/15/18 08:22 90 135/97 05/15/18 05:37 96.8 16 97 I&O- Last 24 Hours up to 6 AM 05/15/18 06:00 Intake Total 1075 ml Output Total 600 ml Balance 475 ml Laboratory Data 24H LABS Laboratory Tests 2 05/14/18 11:44: Bedside Glucose (Misc Panel) 178H 05/14/18 16:38: Bedside Glucose (Misc Panel) 178H 05/14/18 20:13: Bedside Glucose (Misc Panel) 111H 05/15/18 05:49: Bedside Glucose (Misc Panel) 165H 05/15/18 06:43: Nucleated Red Blood Cells % (auto) 0.0, Anion Gap 9, Glomerular Filtration Rate > 60.0, Blood Urea Nitrogen 25H, Creatinine 0.96, Sodium Level 135L, Potassium Level 3.0L, Chloride Level 97L, Carbon Dioxide Level 29, Calcium Level 9.0, Aspartate Amino Transf (AST/SGOT) 13, Alanine Aminotransferase (ALT/SGPT) 28, Alkaline Phosphatase 74, Total Bilirubin 0.4, Total Protein 7.4, Albumin 3.0L, Magnesium Level 2.1, Albumin/Globulin Ratio 0.68L CBC/BMP Laboratory Tests 05/15/18 06:43 Red Blood Count 4.53, Mean Corpuscular Volume 84.3, Mean Corpuscular Hemoglobin 28.7, Mean Corpuscular Hemoglobin Concent 34.0, Red Cell Distribution Width 11.9, Calcium Level 9.0, Aspartate Amino Transf (AST/SGOT) 13, Alanine Aminotransferase (ALT/SGPT) 28, Alkaline Phosphatase 74, Total Bilirubin 0.4, Total Protein 7.4, Albumin 3.0 L Microbiology Microbiology 05/11/18 Urine Culture - Final, Complete Maria Teresa Linag May 15, 2018 11:05
[2018-05-15 14:00] VITALS: BP 150/100
[2018-05-15] MEDS ORDERED: METOPROLOL TART 25 MG TABLET PO ONE (16:45)
--- NOTE | 2018-05-15 18:48 | IPNPDOC ---
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 REVIEW OF SYSTEMS: The following is a completed review of systems and has been reviewed. Review of systems otherwise unremarkable. PAIN: Patient self reports no pain EYES: Negative for recent vision changes EARS, NOSE, & THROAT:denies throat or ear pain, no dysphagia CARDIOVASCULAR: denies chest pain or palpitations PULMONARY: Negative. Denies shortness of breath GASTROINTESTINAL: +fecal incontinence (improving) GENITOURINARY: +urinary incontinence MUSCULOSKELETAL: bilateral LE weakness NEUROLOGICAL: +cauda equina HEMATOLOGICAL: Negative SKIN: +sacral pressure ulcer, laminectomy incision PSYCHIATRIC: Unremarkable All other review of systems found to be negative. PHYSICAL EXAMINATION: VITAL SIGNS: Please see below. GENERAL: Pleasant and cooperative. No acute distress. HEENT: PERRL. Extraocular movements intact. Clear conjunctiva CARDIOVASCULAR: Regular rate and rhythm. No murmurs, rubs, or gallops LUNGS: Clear to auscultation bilaterally. No wheezes. No rhonchi ABDOMEN: Soft, nontender, nondistended. Positive bowel sounds. Normal active bowel sounds NEUROLOGICAL: Alert and oriented times three. Cranial nerves II through XII grossly intact. EXTREMITIES: 5\5 strength bilateral upper extremities. 4/5 bilateral hip fle xors, 4/5 bilat knee extensors, 3/5 left ankle DF (lacking L5 contribution and unable to activate peroneus longus/brevis) 1/5 EHL, 3/5 ankle PF on left 0/5 right ankle DF or EHL, 2/5 ankle PF Sensation diminished to light touch right L4-S2 dermatomes, otherwise intact to light touch in all 4 limbs (-) Babinksi bilat, (-) clonus ASSESSMENT:22-year-old F with past medical history of PCOS and HTN who presents status post cauda equina syndrome: PLAN: 1. Rehab: PT/OT and assess for DME-multipodus boots while in bed to stretch heel cords 2. Neuro: cauda equina syndrome s/p L3-L5 decompressive laminectomy with L4/L5 and L5/S1 discectomies performed 05/06/18, conus medullaris at L2 level-unclear at this time if spinal cord was affected in the setting of post-op edema, however inital imaging did not show cord signal abnormalitiies at L2 level -will monitor and manage lower motor neuron effects on bowel and bladder which usually present with low tone and incontinence -avoid NSAIDs, heavy lifting, and f/u with neurosurgery 3. CArdio:pmg HTN and HLD-will increase Spironolactone for elevated BPs in setting of mild hypokalemia-medicine consulted 4. Endo: pmh PCOS and DM c/u spironolactone, metformin, and insulin coverage 5. Pain: oxycodone prn, gabapentin for neuropathic pain, will d/c valium as not taking 6. :admisison UA and Ucx negative, c/u aguilar for now 7. GI ppx: protonix, optimize bowel regimen, KUB +small amount of fecal retention, c/u bowel meds 8. DVT ppx: heparin 9. SKin: turn q2, barrier cream to sacrum BID, silver optifoam to lumbar incision 10. DIspo: TBD Allergies Coded Allergies: Penicillins (Verified Allergy, Intermediate, hives, 05/16/18) Vital Signs Vital Signs Date Time Temp Pulse Resp B/P (MAP) Pulse Ox O2 Delivery O2 Flow Rate FiO2 05/15/18 17:16 111 150/100 05/15/18 14:00 97.7 17 97 Laboratory Data CBC/BMP Laboratory Tests 05/15/18 06:43 Red Blood Count 4.53, Mean Corpuscular Volume 84.3, Mean Corpuscular Hemoglobin 28.7, Mean Corpuscular Hemoglobin Concent 34.0, Red Cell Distribution Width 11.9, Calcium Level 9.0, Aspartate Amino Transf (AST/SGOT) 13, Alanine Aminotransferase (ALT/SGPT) 28, Alkaline Phosphatase 74, Total Bilirubin 0.4, Total Protein 7.4, Albumin 3.0 L Labs 24H Laboratory Tests 2 05/14/18 20:13: Bedside Glucose (Misc Panel) 111H 05/15/18 05:49: Bedside Glucose (Misc Panel) 165H 05/15/18 06:43: Nucleated Red Blood Cells % (auto) 0.0, Anion Gap 9, Glomerular Filtration Rate > 60.0, Blood Urea Nitrogen 25H, Creatinine 0.96, Sodium Level 135L, Potassium Level 3.0L, Chloride Level 97L, Carbon Dioxide Level 29, Calcium Level 9.0, Aspartate Amino Transf (AST/SGOT) 13, Alanine Aminotransferase (ALT/SGPT) 28, Alkaline Phosphatase 74, Total Bilirubin 0.4, Total Protein 7.4, Albumin 3.0L, Magnesium Level 2.1, Albumin/Globulin Ratio 0.68L 05/15/18 11:41: Bedside Glucose (Misc Panel) 155H 05/15/18 17:02: Bedside Glucose (Misc Panel) 80 Microbiology Microbiology 05/11/18 Urine Culture - Final, Complete Current Medications Current Medications Current Medications Acetaminophen (Tylenol Tab) 650 mg Q4HP PRN PO fever/MILD PAIN (PS 1-4) Last administered on 05/10/18at 22:40; Start 05/10/18 at 19:15 Chlorthalidone (Hygroton) 25 mg DAILY PO Last administered on 05/15/18at 08:22; Start 05/11/18 at 09:00 Dextrose (Dextrose 50%) 25 ml ASDIRECTED PRN IV SEE LABEL COMMENTS; Start 05/10/18 at 19:15 Diazepam (Valium) 5 mg Q8HP PRN PO ANXIETY; Start 05/10/18 at 19:15 Docusate Sodium (Colace) 100 mg TID PO Last administered on 05/15/18at 15:46; Start 05/10/18 at 21:00 Gabapentin (Neurontin) 300 mg TID PO Last administered on 05/15/18at 15:47; Start 05/10/18 at 21:00 Glucagon (Glucagon) 1 mg ASDIRECTED PRN SC SEE LABEL COMMENTS; Start 05/10/18 at 19:15 Glucose (Glucose) 16 GM ASDIRECTED PRN PO SEE LABEL COMMENTS; Start 05/10/18 at 19:15 Heparin Sodium (Porcine) (Heparin) 5,000 units Q8H SQ Last administered on 05/15/18at 15:47; Start 05/10/18 at 22:00 Home Med (Med Rec Complete!) ASDIRECTED XX ; Start 05/10/18 at 20:30; Stop 05/10/18 at 20:30; Status DC Insulin Human Lispro (HumaLOG INSULIN) SEE PROTOCOL TABLE AC SC Last administered on 05/15/18at 12:19; Start 05/11/18 at 07:30 Insulin Human Lispro (HumaLOG INSULIN) SEE PROTOCOL TABLE QHS SC ; Start 05/10/18 at 21:00 Metformin HCl (Glucophage) 1,000 mg BID@08,18 PO Last administered on 05/15/18 17:15; Start 05/11/18 at 08:00 Metoprolol Succinate (TopROL XL) 25 mg DAILY PO Last administered on 05/15/18 08:22; Start 05/11/18 at 09:00 Oxycodone HCl (Roxicodone, Oxyir) 5 mg Q4HP PRN PO PAIN Last administered on 05/11/18 15:27; Start 05/10/18 at 19:15 Polyethylene Glycol (Miralax) 1 pkt DAILYPRN PRN PO CONSTIPATION Last administered on 05/15/18 08:21; Start 05/14/18 at 13:30 Prednisone (Deltasone) 10 mg DAILY PO Last administered on 05/15/18 08:22; Start 05/11/18 at 09:00 Simvastatin (Zocor) 20 mg QHS PO Last administered on 05/14/18 21:31; Start 05/10/18 at 21:00 Spironolactone (Aldactone) 25 mg QAM PO Last administered on 05/15/18 08:21; Start 05/11/18 at 09:00 Zinc Oxide (Boudreauxs Butt Paste) APPLY TO AFFECTED AREA TID TOP Last administered on 05/15/18 15:48; Start 05/10/18 at 21:00 BRITTNY DODGE MD May 15, 2018 18:48
[2018-05-15 20:00] VITALS: BP 142/93
[2018-05-15] MEDS: SIMVASTATIN 20 MG TAB PO SCH (21:06)
[2018-05-16 05:00] VITALS: BP 133/95
[2018-05-16] MEDS: HEPARIN SOD (PORCINE) 5000 UNITS/ML VIAL SQ SCH ×3 (05:25→21:27)
[2018-05-16 07:18] LABS: HEMATOCRIT 39.4 % (36.0-47.0); HEMOGLOBIN 13.2 g/dl (12.0-15.5); MEAN CORPUSCULAR HEMOGLOBIN 28.6 pg (27.0-33.0); MEAN CORPUSCULAR HGB CONC 33.5 g/dl (32.0-36.5); MEAN CORPUSCULAR VOLUME 85.3 fl (80.0-96.0); PLATELET COUNT, AUTOMATED 435 10^3/uL (150-450); RED BLOOD COUNT 4.62 10^6/uL (4.00-5.40); WHITE BLOOD COUNT 14.4 10^3/uL (4.0-10.0)
[2018-05-16 07:44] LABS: BLOOD UREA NITROGEN 20 MG/DL (7-18); CALCIUM LEVEL 9.2 MG/DL (8.5-10.1); CARBON DIOXIDE LEVEL 31 MEQ/L (21-32); CHLORIDE LEVEL 97 MEQ/L (98-107); CREATININE FOR GFR 0.95 MG/DL (0.55-1.30); GLOMERULAR FILTRATION RATE > 60.0 (>60); GLUCOSE, FASTING 166 MG/DL (70-100); POTASSIUM SERUM 3.5 MEQ/L (3.5-5.1); SODIUM LEVEL 135 MEQ/L (136-145)
[2018-05-16] MEDS: DOCUSATE SODIUM 100 MG CAP PO SCH ×3 (08:33→21:28)
[2018-05-16] MEDS: CHLORTHALIDONE 25 MG TAB PO SCH (08:33)
[2018-05-16] MEDS: predniSONE 10 MG TAB PO SCH (08:33)
[2018-05-16] MEDS: SPIRONOLACTONE 25 MG TAB PO SCH ×2 (08:33→21:27)
[2018-05-16] MEDS: GABAPENTIN 300 MG CAP PO SCH ×3 (08:33→21:28)
[2018-05-16] MEDS: metFORMIN (GLUCOPHAGE) 1000 MG TABLET PO SCH ×2 (08:33→17:46)
[2018-05-16] MEDS: METOPROLOL SUCC *XL* 25MG TAB (TopROL *XL*) PO SCH (08:34)
[2018-05-16] MEDS: HumaLOG INSULIN (NovoLOG) PER UNIT SC SCH ×4 (08:34→20:07)
[2018-05-16] MEDS: BOUDREAUX'S BUTT PASTE 4OZ TOP SCH ×3 (08:35→21:27)
[2018-05-16 14:00] VITALS: BP 134/77
--- NOTE | 2018-05-16 14:23 | IPNPDOC ---
Date Seen The patient was seen on 05/16/18. Progress Note HPI: 22F presented to [facility] ED on 05/06/18 with bilateral lower extremity weakness after bending forward and feeling a popping sensation a few days earlier. At first she felt pain and later developed weakness with urinary incontinence and saddle region anesthesia. Lumbar Spine MRI on 05/06/18 showed Disc protrusion with moderate canal stenosis is present at L3-L4 vertebral level.,disc protrusion with severe canal stenosis and compression of the cauda equine nerve roots is present at L4-L5 vertebral level. Disc bulging with moderate canal stenosis L5-S1. The pt was evaluated by Dr. Bazzi who performed a L3-L5 decompressive laminectomy with L4/L5 and L5/S1 discectomies without complications. Pt states strength in her legs improved significantly since the surgery, but rep orts weakness in her ankles and some persistent sensory loss in her feet. She states she has had 2 BM this AM and states sensation is normal. The pt was transferred to the care of YFN Horan, 05/10/18. The pt states she has been OOB today and feels she is getting stronger in LEs, paresthesia in feet B/L is less pronounced. Denies any fevers, chills, weakness, fatigue, Headache, Chest Pain, Shortness of breath, cough, palpitations, abdominal pain, N/V/D or changes in bowel or bladder habits. PMHx/PSHx: HTN HLD DM PCOS Obesity. BMI 39.6 dental surgery tonsillectomy PE: GEN: 22yoF, appears stated age. Well-nourished, well developed. No acute distress. Alert and oriented x 3. HEENT: Normocephalic, atraumatic. Sclera are nonicteric. Conjunctiva without injection. Moist mucous membranes. CHEST: Regular rate and rhythm, +S1, +S2 LUNGS: Clear to auscultation bilaterally. No wheezes, rales, or rhonchi. Breathing appears symmetric and easy. ABD: Round, soft, non-tender, non-distended. +Bowel sounds throughout. No rebound or guarding. No costovertebral angle tenderness. EXT: Pulses 2+ bilaterally dorsalis pedis and radial. No lower extremity edema appreciated. SKIN: [place], dry, warm. No rashes. NEURO: Alert and oriented x 3. No focal deficits appreciated. A&P: 22F presented to [facility] ED on 05/06/18 with bilateral lower extremity weakness after bending forward and feeling a popping sensation a few days earlier. At first she felt pain and later developed weakness with urinary incontinence and saddle region anesthesia. Lumbar Spine MRI on 05/06/18 showed Disc protrusion with moderate canal stenosis is present at L3-L4 vertebral level.,disc protrusion with severe canal stenosis and compression of the cauda equine nerve roots is present at L4-L5 vertebral level. Disc bulging with moderate canal stenosis L5-S1. The pt was evaluated by Dr. Bazzi who performed a L3-L5 decompressive laminectomy with L4/L5 and L5/S1 discectomies without complications. Pt states strength in her legs improved significantly since the surgery, but reports weakness in her ankles and some persistent sensory loss in her feet. She states she has had 2 BM this AM and states sensation is normal. The pt was transferred to the care of YFN Horan, 05/10/18. 1. L3-L5 decompressive laminectomy with L4/L5 and L5/S1 discectomies. Mgmt as per Neurosurgery, Dr Bazzi. [facility]. Outpt F/U with Dr Bazzi. Mgmt as per Dr Malick COULTER. PT/OT as per Dr Malick COULTER. Pain control as per Dr Malick COULTER. Bowel care as per Dr Malick COULTER. DVT prophylaxis as per Dr Malick COULTER. SQ Heparin. Disposition as per Dr Malick COULTER. Urinary retention. Guerra catheter removed. Mgmt as per Dr Malick COULTER. 2. HTN. Chlorthalidone/Toprol XL. Monitor. 3. HLD Zocor. 4. DM. CC diet SSI. Metformin. 5. PCOS. Metformin/Aldactone. 6. Hypokalemia. S/P po supplement x 2 doses 05/15/18. mag WNL. Aldactone dose increased. BMP in AM. 7. Leukocytosis. Pt is afebrile. Asymptomatic. Monitor. VS, I&O, 24H, Fishbone Vital Signs/I&O Vital Signs Date Time Temp Pulse Resp B/P (MAP) Pulse Ox O2 Delivery O2 Flow Rate FiO2 05/16/18 08:34 95 135/74 05/16/18 05:00 97.6 20 98 I&O- Last 24 Hours up to 6 AM 05/16/18 06:00 Intake Total 1090 ml Output Total 650 ml Balance 440 ml Laboratory Data 24H LABS Laboratory Tests 2 05/15/18 17:02: Bedside Glucose (Misc Panel) 80 05/15/18 20:18: Bedside Glucose (Misc Panel) 180H 05/16/18 06:54: Nucleated Red Blood Cells % (auto) 0.0, Anion Gap 7L, Glomerular Filtration Rate > 60.0, Blood Urea Nitrogen 20H, Creatinine 0.95, Sodium Level 135L, Potassium Level 3.5, Chloride Level 97L, Carbon Dioxide Level 31, Calcium Level 9.2 05/16/18 11:33: Bedside Glucose (Misc Panel) 173H CBC/BMP Laboratory Tests 05/16/18 06:54 Red Blood Count 4.62, Mean Corpuscular Volume 85.3, Mean Corpuscular Hemoglobin 28.6, Mean Corpuscular Hemoglobin Concent 33.5, Red Cell Distribution Width 12.1, Calcium Level 9.2 Microbiology Microbiology 05/11/18 Urine Culture - Final, Complete Maria Teresa Liang May 16, 2018 14:23
--- NOTE | 2018-05-16 16:17 | IPNPDOC ---
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 ALLERGIES: See Below MEDICATIONS: Reviewed, see below. OBJECTIVE: VITAL SIGNS: Please see below. PHYSICAL EXAMINATION: GENERAL: [Cachectic, well developed, sitting up in bed, no acute distress]. HEENT: [Normocephalic, atraumatic]. [No facial droop]. [Poor dentition, missing teeth. PERRL, EOMI]. CARDIOVASCULAR: [S1, S2, irregular rate]. [No lower limb edema or calf tenderness]. LUNGS: [Decreased breath sounds, coarse throughout]. ABDOMEN: [Soft, nontender, nondistended. Normoactive bowel sounds throughout]. MUSCULOSKELETAL: MMT: /5 strength proximally bilateral shoulder abduction, forward flexion and bilateral hip flexion. /5 strength bilateral elbow flexion, knee flexion, /5 bilateral elbow extension and knee extension. /5 utilization specialist, dorsiflexion, plantar flexion. NEUROLOGICAL: [Alert and oriented times three]. [Answers all question appropriately]. SKIN: . LABORATORY DATA: Reviewed. Please see below. MICROBIOLOGY: Please see below. IMAGING: ASSESSMENT AND PLAN: 1. . 2. . 3. . TIME SPENT: Chart Review, examination and documentation minutes. Allergies Coded Allergies: Penicillins (Verified Allergy, Intermediate, hives, 05/16/18) Vital Signs Vital Signs Date Time Temp Pulse Resp B/P (MAP) Pulse Ox O2 Delivery O2 Flow Rate FiO2 05/16/18 14:00 97.0 117 18 134/77 (96) 98 Laboratory Data CBC/BMP Laboratory Tests 05/16/18 06:54 Red Blood Count 4.62, Mean Corpuscular Volume 85.3, Mean Corpuscular Hemoglobin 28.6, Mean Corpuscular Hemoglobin Concent 33.5, Red Cell Distribution Width 12.1, Calcium Level 9.2 Labs 24H Laboratory Tests 2 05/15/18 17:02: Bedside Glucose (Misc Panel) 80 05/15/18 20:18: Bedside Glucose (Misc Panel) 180H 05/16/18 06:54: Nucleated Red Blood Cells % (auto) 0.0, Anion Gap 7L, Glomerular Filtration Rate > 60.0, Blood Urea Nitrogen 20H, Creatinine 0.95, Sodium Level 135L, Potassium Level 3.5, Chloride Level 97L, Carbon Dioxide Level 31, Calcium Level 9.2 05/16/18 11:33: Bedside Glucose (Misc Panel) 173H Microbiology Microbiology 05/11/18 Urine Culture - Final, Complete Current Medications Current Medications Current Medications Acetaminophen (Tylenol Tab) 650 mg Q4HP PRN PO fever/MILD PAIN (PS 1-4) Last a dministered on 05/10/18at 22:40; Start 05/10/18 at 19:15 Chlorthalidone (Hygroton) 25 mg DAILY PO Last administered on 05/16/18at 08:33; Start 05/11/18 at 09:00 Dextrose (Dextrose 50%) 25 ml ASDIRECTED PRN IV SEE LABEL COMMENTS; Start 05/10/18 at 19:15 Diazepam (Valium) 5 mg Q8HP PRN PO ANXIETY; Start 05/10/18 at 19:15 Docusate Sodium (Colace) 100 mg TID PO Last administered on 05/16/18at 15:08; Start 05/10/18 at 21:00 Gabapentin (Neurontin) 300 mg TID PO Last administered on 05/16/18at 15:08; Start 05/10/18 at 21:00 Glucagon (Glucagon) 1 mg ASDIRECTED PRN SC SEE LABEL COMMENTS; Start 05/10/18 at 19:15 Glucose (Glucose) 16 GM ASDIRECTED PRN PO SEE LABEL COMMENTS; Start 05/10/18 at 19:15 Heparin Sodium (Porcine) (Heparin) 5,000 units Q8H SQ Last administered on 05/16/18at 15:09; Start 05/10/18 at 22:00 Home Med (Med Rec Complete!) ASDIRECTED XX ; Start 05/10/18 at 20:30; Stop 05/10/18 at 20:30; Status DC Insulin Human Lispro (HumaLOG INSULIN) SEE PROTOCOL TABLE AC SC Last administ ered on 05/16/18at 12:48; Start 05/11/18 at 07:30 Insulin Human Lispro (HumaLOG INSULIN) SEE PROTOCOL TABLE QHS SC ; Start 05/10/18 at 21:00 Metformin HCl (Glucophage) 1,000 mg BID@08,18 PO Last administered on 05/16/18at 08:33; Start 05/11/18 at 08:00 Metoprolol Succinate (TopROL XL) 25 mg DAILY PO Last administered on 05/16/18 08:34; Start 05/11/18 at 09:00 Oxycodone HCl (Roxicodone, Oxyir) 5 mg Q4HP PRN PO PAIN Last administered on 05/11/18 15:27; Start 05/10/18 at 19:15 Polyethylene Glycol (Miralax) 1 pkt DAILYPRN PRN PO CONSTIPATION Last administered on 05/15/18 08:21; Start 05/14/18 at 13:30 Prednisone (Deltasone) 10 mg DAILY PO Last administered on 05/16/18 08:33; Start 05/11/18 at 09:00 Simvastatin (Zocor) 20 mg QHS PO Last administered on 05/15/18 21:06; Start 05/10/18 at 21:00 Spironolactone (Aldactone) 25 mg BID PO Last administered on 05/16/18 08:33; Start 05/15/18 at 21:00 Spironolactone (Aldactone) 25 mg QAM PO Last administered on 05/15/18 08:21; Start 05/11/18 at 09:00; Stop 05/15/18 at 18:47; Status DC Zinc Oxide (Boudreauxs Butt Paste) APPLY TO AFFECTED AREA TID TOP Last administered on 05/16/18 15:09; Start 05/10/18 at 21:00 BRITTNY DODGE MD May 16, 2018 16:17
[2018-05-16] MEDS ORDERED: MICONAZOLE-7 VAGINAL 2% CREAM 47.7 GM PV SCH (18:00)
[2018-05-16] MEDS ORDERED: FLUCONAZOLE 50MG TABLET PO ONE (18:00)
[2018-05-16 20:00] VITALS: BP 153/90
[2018-05-16] MEDS: SIMVASTATIN 20 MG TAB PO SCH (21:28)
[2018-05-17] MEDS: HEPARIN SOD (PORCINE) 5000 UNITS/ML VIAL SQ SCH ×3 (05:52→21:55)
[2018-05-17 06:00] VITALS: BP 162/88
[2018-05-17] MEDS: HumaLOG INSULIN (NovoLOG) PER UNIT SC SCH ×4 (07:30→20:50)
[2018-05-17] MEDS: DOCUSATE SODIUM 100 MG CAP PO SCH ×3 (08:49→21:55)
[2018-05-17] MEDS: metFORMIN (GLUCOPHAGE) 1000 MG TABLET PO SCH ×2 (08:49→17:22)
[2018-05-17] MEDS: GABAPENTIN 300 MG CAP PO SCH ×3 (08:49→21:55)
[2018-05-17] MEDS: CHLORTHALIDONE 25 MG TAB PO SCH (08:50)
[2018-05-17] MEDS: SPIRONOLACTONE 25 MG TAB PO SCH ×2 (08:51→21:55)
[2018-05-17] MEDS: METOPROLOL SUCC *XL* 25MG TAB (TopROL *XL*) PO SCH (08:51)
[2018-05-17] MEDS: predniSONE 10 MG TAB PO SCH (08:51)
[2018-05-17] MEDS: BOUDREAUX'S BUTT PASTE 4OZ TOP SCH ×3 (08:52→21:56)
[2018-05-17] MEDS: ACETAMINOPHEN TAB 650MG DOSE (2X325MG) PO PRN (08:56)
[2018-05-17 09:54] LABS: BLOOD UREA NITROGEN 19 MG/DL (7-18); CARBON DIOXIDE LEVEL 32 MEQ/L (21-32); CHLORIDE LEVEL 94 MEQ/L (98-107); CREATININE FOR GFR 0.93 MG/DL (0.55-1.30); GLOMERULAR FILTRATION RATE > 60.0 (>60); GLUCOSE, FASTING 165 MG/DL (70-100); POTASSIUM SERUM 3.7 MEQ/L (3.5-5.1); SODIUM LEVEL 134 MEQ/L (136-145)
--- NOTE | 2018-05-17 13:51 | IPNPDOC ---
Date Seen The patient was seen on 05/17/18. Progress Note HPI: 22F presented to [facility] ED on 05/06/18 with bilateral lower extremity weakness after bending forward and feeling a popping sensation a few days earlier. At first she felt pain and later developed weakness with urinary incontinence and saddle region anesthesia. Lumbar Spine MRI on 05/06/18 showed Disc protrusion with moderate canal stenosis is present at L3-L4 vertebral level.,disc protrusion with severe canal stenosis and compression of the cauda equine nerve roots is present at L4-L5 vertebral level. Disc bulging with moderate canal stenosis L5-S1. The pt was evaluated by Dr. Bazzi who performed a L3-L5 decompressive laminectomy with L4/L5 and L5/S1 discectomies without complications. Pt states strength in her legs improved significantly since the surgery, but rep orts weakness in her ankles and some persistent sensory loss in her feet. She states she has had 2 BM this AM and states sensation is normal. The pt was transferred to the care of YFN Horan, 05/10/18. The pt is OOB to chair. States she has had some Rt sided back pain today. paresthesia in feet seems to be improving. Denies any fevers, chills, weakness, fatigue, Headache, Chest Pain, Shortness of breath, cough, palpitations, abdominal pain, N/V/D or changes in bowel or bladder habits. PMHx/PSHx: HTN HLD DM PCOS Obesity. BMI 39.6 dental surgery tonsillectomy PE: GEN: 22yoF, appears stated age. Well-nourished, well developed. No acute distress. Alert and oriented x 3. HEENT: Normocephalic, atraumatic. Sclera are nonicteric. Conjunctiva without injection. Moist mucous membranes. CHEST: Regular rate and rhythm, +S1, +S2 LUNGS: Clear to auscultation bilaterally. No wheezes, rales, or rhonchi. Breathing appears symmetric and easy. ABD: Round, soft, non-tender, non-distended. +Bowel sounds throughout. No rebound or guarding. No costovertebral angle tenderness. EXT: Pulses 2+ bilaterally dorsalis pedis and radial. No lower extremity edema appreciated. SKIN: [place], dry, warm. No rashes. NEURO: Alert and oriented x 3. No focal deficits appreciated. A&P: 22F presented to [facility] ED on 05/06/18 with bilateral lower extremity weakness after bending forward and feeling a popping sensation a few days earlier. At first she felt pain and later developed weakness with urinary incontinence and saddle region anesthesia. Lumbar Spine MRI on 05/06/18 showed Disc protrusion with moderate canal stenosis is present at L3-L4 vertebral level.,disc protrusion with severe canal stenosis and compression of the cauda equine nerve roots is present at L4-L5 vertebral level. Disc bulging with moderate canal stenosis L5-S1. The pt was evaluated by Dr. Bazzi who performed a L3-L5 decompressive laminectomy with L4/L5 and L5/S1 discectomies without complications. Pt states strength in her legs improved significantly since the surgery, but reports weakness in her ankles and some persistent sensory loss in her feet. She states she has had 2 BM this AM and states sensation is normal. The pt was transferred to the care of YFN Horan, 05/10/18. 1. L3-L5 decompressive laminectomy with L4/L5 and L5/S1 discectomies. Mgmt as per Neurosurgery, Dr Bazzi. [facility]. Outpt F/U with Dr Bazzi. Mgmt as per Dr Malick COULTER. PT/OT as per Dr Malick COULTER. Pain control as per Dr Malick COULTER. Bowel care as per Dr Malick COULTER. DVT prophylaxis as per Dr Malick COULTER. SQ Heparin. Disposition as per Dr Malick COULTER. Urinary retention. Guerra catheter removed. Mgmt as per Dr Malick COULTER. 2. HTN. Chlorthalidone/Toprol XL. Monitor. 3. HLD Zocor. 4. DM. CC diet SSI. Metformin. 5. PCOS. Metformin/Aldactone. 6. Hypokalemia. S/P po supplement. mag WNL. Aldactone dose increased to BID. WNL this AM. Monitor. 7. Leukocytosis. Pt is afebrile. Asymptomatic. Monitor. VS, I&O, 24H, Fishbone Vital Signs/I&O Vital Signs Date Time Temp Pulse Resp B/P (MAP) Pulse Ox O2 Delivery O2 Flow Rate FiO2 05/17/18 08:51 101 137/93 05/17/18 06:00 96.9 18 97 I&O- Last 24 Hours up to 6 AM 05/17/18 06:00 Intake Total 940 ml Output Total 400 ml Balance 540 ml Laboratory Data 24H LABS Laboratory Tests 2 05/16/18 16:17: Bedside Glucose (Misc Panel) 167H 05/16/18 20:03: Bedside Glucose (Misc Panel) 176H 05/17/18 08:32: Bedside Glucose (Misc Panel) 177H 05/17/18 09:06: Anion Gap 8, Glomerular Filtration Rate > 60.0, Blood Urea Nitrogen 19H, Creatinine 0.93, Sodium Level 134L, Potassium Level 3.7, Chloride Level 94L, Carbon Dioxide Level 32, Calcium Level 9.0 05/17/18 11:35: Bedside Glucose (Misc Panel) 148H CBC/BMP Laboratory Tests 05/17/18 09:06 Calcium Level 9.0 Microbiology Microbiology 05/11/18 Urine Culture - Final, Complete Maria Teresa Liang May 17, 2018 13:51
[2018-05-17 14:00] VITALS: BP 138/71
--- NOTE | 2018-05-17 15:32 | IPNPDOC ---
PM&R Progress Note DATE OF SERVICE: May 16, 2018 [employer] Progress Note Subjective: Patient reports she was able to urinate on her own today. REVIEW OF SYSTEMS: The following is a completed review of systems and has been reviewed. Review of systems otherwise unremarkable. PAIN: Patient self reports no pain EYES: Negative for recent vision changes EARS, NOSE, & THROAT:denies throat or ear pain, no dysphagia CARDIOVASCULAR: denies chest pain or palpitations PULMONARY: Negative. Denies shortness of breath GASTROINTESTINAL: +fecal incontinence (improving) GENITOURINARY: +urinary incontinence MUSCULOSKELETAL: bilateral LE weakness NEUROLOGICAL: +cauda equina HEMATOLOGICAL: Negative SKIN: +sacral pressure ulcer, laminectomy incision PSYCHIATRIC: Unremarkable All other review of systems found to be negative. PHYSICAL EXAMINATION: VITAL SIGNS: Please see below. GENERAL: Pleasant and cooperative. No acute distress. HEENT: PERRL. Extraocular movements intact. Clear conjunctiva CARDIOVASCULAR: Regular rate and rhythm. No murmurs, rubs, or gallops LUNGS: Clear to auscultation bilaterally. No wheezes. No rhonchi ABDOMEN: Soft, nontender, nondistended. Positive bowel sounds. Normal active bowel sounds NEUROLOGICAL: Alert and oriented times three. Cranial nerves II through XII grossly intact. EXTREMITIES: 5\5 strength bilateral upper extremities. 4/5 bilateral hip flexors, 4/5 bilat knee extensors, 3/5 left ankle DF (lacking L5 contribution and unable to activate peroneus longus/brevis) 1/5 EHL, 3/5 ankle PF on left 0/5 right ankle DF or EHL, 2/5 ankle PF Sensation diminished to light touch right L4-S2 dermatomes, otherwise intact to light touch in all 4 limbs (-) Babinski bilat, (-) clonus Skin: incision c/d/i with mild erythema, non tender to palpation, no induration ASSESSMENT:22-year-old F with past medical history of PCOS and HTN who presents status post cauda equina syndrome: PLAN: 1. Rehab: PT/OT and assess for DME-multipodus boots while in bed to stretch heel cords 2. Neuro: cauda equina syndrome s/p L3-L5 decompressive laminectomy with L4/L5 and L5/S1 discectomies performed 05/06/18, conus medullaris at L2 level-unclear at this time if spinal cord was affected in the setting of post-op edema, however inital imaging did not show cord signal abnormalitiies at L2 level -will monitor and manage lower motor neuron effects on bowel and bladder which usually present with low tone and incontinence -avoid NSAIDs, heavy lifting, and f/u with neurosurgery 3. CArdio:pmg HTN and HLD-c/u increased Spironolactone for elevated BPs in setting of mild kgqjpkctzlm-tmpggecdc-snajilov consulted and recs appreciated 4. Endo: pmh PCOS and DM c/u spironolactone, metformin, and insulin coverage 5. Pain: oxycodone prn, gabapentin for neuropathic pain, will d/c valium as not taking 6. : admission UA and Ucx negative, s/p Guerra removal, c/u times void and bladder scan/PVRs, will order 1x dose Diflucan for discharge 7. GI ppx: Protonix, optimize bowel regimen, KUB +small amount of fecal retention, c/u bowel meds 8. DVT ppx: heparin 9. SKin: turn q2, barrier cream to sacrum BID, silver Optifoam to lumbar incision 10. DIspo: TBD Allergies Coded Allergies: Penicillins (Verified Allergy, Intermediate, hives, 05/16/18) Vital Signs Vital Signs Date Time Temp Pulse Resp B/P (MAP) Pulse Ox O2 Delivery O2 Flow Rate FiO2 05/17/18 14:00 97.4 100 17 138/71 (93) 98 Laboratory Data CBC/BMP Laboratory Tests 05/17/18 09:06 Calcium Level 9.0 Labs 24H Laboratory Tests 2 05/16/18 16:17: Bedside Glucose (Misc Panel) 167H 05/16/18 20:03: Bedside Glucose (Misc Panel) 176H 05/17/18 08:32: Bedside Glucose (Misc Panel) 177H 05/17/18 09:06: Anion Gap 8, Glomerular Filtration Rate > 60.0, Blood Urea Nitrogen 19H, Creatinine 0.93, Sodium Level 134L, Potassium Level 3.7, Chloride Level 94L, Carbon Dioxide Level 32, Calcium Level 9.0 05/17/18 11:35: Bedside Glucose (Misc Panel) 148H Microbiology Microbiology 05/11/18 Urine Culture - Final, Complete Current Medications Current Medications Current Medications Acetaminophen (Tylenol Tab) 650 mg Q4HP PRN PO fever/MILD PAIN (PS 1-4) Last administered on 05/17/18 08:56; Start 05/10/18 at 19:15 Chlorthalidone (Hygroton) 25 mg DAILY PO Last administered on 05/17/18at 08:50; Start 05/11/18 at 09:00 Dextrose (Dextrose 50%) 25 ml ASDIRECTED PRN IV SEE LABEL COMMENTS; Start 05/10/18 at 19:15 Diazepam (Valium) 5 mg Q8HP PRN PO ANXIETY; Start 05/10/18 at 19:15; Stop 05/16/18 at 18:08; Status DC Docusate Sodium (Colace) 100 mg TID PO Last administered on 05/17/18at 15:02; Start 05/10/18 at 21:00 Gabapentin (Neurontin) 300 mg TID PO Last administered on 05/17/18at 15:02; Start 05/10/18 at 21:00 Glucagon (Glucagon) 1 mg ASDIRECTED PRN SC SEE LABEL COMMENTS; Start 05/10/18 at 19:15 Glucose (Glucose) 16 GM ASDIRECTED PRN PO SEE LABEL COMMENTS; Start 05/10/18 at 19:15 Heparin Sodium (Porcine) (Heparin) 5,000 units Q8H SQ Last administered on 05/17/18at 15:02; Start 05/10/18 at 22:00 Home Med (Med Rec Complete!) ASDIRECTED XX ; Start 05/10/18 at 20:30; Stop 05/10/18 at 20:30; Status DC Insulin Human Lispro (HumaLOG INSULIN) SEE PROTOCOL TABLE AC SC Last administered on 05/17/18at 12:05; Start 05/11/18 at 07:30 Insulin Human Lispro (HumaLOG INSULIN) SEE PROTOCOL TABLE QHS SC ; Start 05/10/18 at 21:00 Metformin HCl (Glucophage) 1,000 mg BID@,18 PO Last administered on 05/17/18at 08:49; Start 05/11/18 at 08:00 Metoprolol Succinate (TopROL XL) 25 mg DAILY PO Last administered on 05/17/18at 08:51; Start 05/11/18 at 09:00 Miconazole Nitrate (Monistat-7) 1 APPLICATORFUL VAGINALL... QHS PV ; Start 05/16/18 at 18:00; Stop 05/16/18 at 18:16; Status DC Oxycodone HCl (Roxicodone, Oxyir) 5 mg Q4HP PRN PO PAIN Last administered on 05/11/18 15:27; Start 05/10/18 at 19:15; Stop 05/16/18 at 18:08; Status DC Polyethylene Glycol (Miralax) 1 pkt DAILYPRN PRN PO CONSTIPATION Last administered on 05/15/18 08:21; Start 05/14/18 at 13:30 Prednisone (Deltasone) 10 mg DAILY PO Last administered on 05/17/18 08:51; Start 05/11/18 at 09:00 Simvastatin (Zocor) 20 mg QHS PO Last administered on 05/16/18 21:28; Start 05/10/18 at 21:00 Spironolactone (Aldactone) 25 mg BID PO Last administered on 05/17/18 08:51; Start 05/15/18 at 21:00 Spironolactone (Aldactone) 25 mg QAM PO Last administered on 05/15/18 08:21; Start 05/11/18 at 09:00; Stop 05/15/18 at 18:47; Status DC Zinc Oxide (Boudreauxs Butt Paste) APPLY TO AFFECTED AREA TID TOP Last administered on 05/17/18 15:02; Start 05/10/18 at 21:00 BRITTNY DODGE MD May 17, 2018 15:32
--- NOTE | 2018-05-17 15:36 | IPNPDOC ---
PM&R Progress Note DATE OF SERVICE: May 17, 2018 [employer] Progress Note Subjective: Patient reports she has some right sided trunk and leg pain, which improved with stretching, was told it is likely from the altered biomechanics she is using to ambulate. REVIEW OF SYSTEMS: The following is a completed review of systems and has been reviewed. Review of systems otherwise unremarkable. PAIN: Patient self reports no pain EYES: Negative for recent vision changes EARS, NOSE, & THROAT:denies throat or ear pain, no dysphagia CARDIOVASCULAR: denies chest pain or palpitations PULMONARY: Negative. Denies shortness of breath GASTROINTESTINAL: +fecal incontinence (improving) GENITOURINARY: +urinary incontinence (improving) MUSCULOSKELETAL: bilateral LE weakness NEUROLOGICAL: +cauda equina HEMATOLOGICAL: Negative SKIN: +sacral pressure ulcer, laminectomy incision PSYCHIATRIC: Unremarkable All other review of systems found to be negative. PHYSICAL EXAMINATION: VITAL SIGNS: Please see below. GENERAL: Pleasant and cooperative. No acute distress. HEENT: PERRL. Extraocular movements intact. Clear conjunctiva CARDIOVASCULAR: Regular rate and rhythm. No murmurs, rubs, or gallops LUNGS: Clear to auscultation bilaterally. No wheezes. No rhonchi ABDOMEN: Soft, nontender, nondistended. Positive bowel sounds. Normal active bowel sounds NEUROLOGICAL: Alert and oriented times three. Cranial nerves II through XII grossly intact. EXTREMITIES: 5\5 strength bilateral upper extremities. 4/5 bilateral hip flexors, 4/5 bilat knee extensors, 3/5 left ankle DF (lacking L5 contribution and unable to activate peroneus longus/brevis) 1/5 EHL, 3/5 ankle PF on left 0/5 right ankle DF or EHL, 2/5 ankle PF Sensation diminished to light touch right L4-S2 dermatomes, otherwise intact to light touch in all 4 limbs (-) Babinski bilat, (-) clonus Skin: incision c/d/i with mild erythema, non tender to palpation, no induration ASSESSMENT:22-year-old F with past medical history of PCOS and HTN who presents status post cauda equina syndrome: PLAN: 1. Rehab: PT/OT and assess for DME-multipodus boots while in bed to stretch heel cords, ready for room privileges from wheelchair level, able to ambulate 30 feet with RW, will need AFOs for bilateral foot drop, given she has sensory deficits she will need Custom-braces to prevent further deformity and protect her from skin breakdown, she will need these AFOs for greater than 6 months-she is currently ambulating short distances and predicted to be a community ambulator 2. Neuro: cauda equina syndrome s/p L3-L5 decompressive laminectomy with L4/L5 and L5/S1 discectomies performed 05/06/18, conus medullaris at L2 level-unclear at this time if spinal cord was affected in the setting of post-op edema, however inital imaging did not show cord signal abnormalitiies at L2 level -will monitor and manage lower motor neuron effects on bowel and bladder which usually present with low tone and incontinence -avoid NSAIDs, heavy lifting, and f/u with neurosurgery 3. CArdio:pmg HTN and HLD-c/u increased Spironolactone for elevated BPs in setting of mild qnxfnrlmpsl-eoepcdmxz-yyincbpq consulted and recs appreciated 4. Endo: pmh PCOS and DM c/u spironolactone, metformin, and insulin coverage 5. Pain: oxycodone prn, gabapentin for neuropathic pain, will d/c valium as not taking 6. : admission UA and Ucx negative, s/p Guerra removal, c/u times void and bladder scan/PVRs, will order 1x dose Diflucan for discharge 7. GI ppx: Protonix, optimize bowel regimen, KUB +small amount of fecal retention, c/u bowel meds 8. DVT ppx: heparin 9. SKin: turn q2, barrier cream to sacrum BID, silver Optifoam to lumbar incision 10. DIspo: TBD, to home-progressing towards goals Allergies Coded Allergies: Penicillins (Verified Allergy, Intermediate, hives, 05/16/18) Vital Signs Vital Signs Date Time Temp Pulse Resp B/P (MAP) Pulse Ox O2 Delivery O2 Flow Rate FiO2 05/17/18 14:00 97.4 100 17 138/71 (93) 98 Laboratory Data CBC/BMP Laboratory Tests 05/17/18 09:06 Calcium Level 9.0 Labs 24H Laboratory Tests 2 05/16/18 16:17: Bedside Glucose (Misc Panel) 167H 05/16/18 20:03: Bedside Glucose (Misc Panel) 176H 05/17/18 08:32: Bedside Glucose (Misc Panel) 177H 05/17/18 09:06: Anion Gap 8, Glomerular Filtration Rate > 60.0, Blood Urea Nitrogen 19H, Cre atinine 0.93, Sodium Level 134L, Potassium Level 3.7, Chloride Level 94L, Carbon Dioxide Level 32, Calcium Level 9.0 05/17/18 11:35: Bedside Glucose (Misc Panel) 148H Microbiology Microbiology 05/11/18 Urine Culture - Final, Complete Current Medications Current Medications Current Medications Acetaminophen (Tylenol Tab) 650 mg Q4HP PRN PO fever/MILD PAIN (PS 1-4) Last administered on 05/17/18at 08:56; Start 05/10/18 at 19:15 Chlorthalidone (Hygroton) 25 mg DAILY PO Last administered on 05/17/18at 08:50; Start 05/11/18 at 09:00 Dextrose (Dextrose 50%) 25 ml ASDIRECTED PRN IV SEE LABEL COMMENTS; Start 05/10/18 at 19:15 Diazepam (Valium) 5 mg Q8HP PRN PO ANXIETY; Start 05/10/18 at 19:15; Stop 05/16/18 at 18:08; Status DC Docusate Sodium (Colace) 100 mg TID PO Last administered on 05/17/18at 15:02; Start 05/10/18 at 21:00 Gabapentin (Neurontin) 300 mg TID PO Last administered on 05/17/18at 15:02; Start 05/10/18 at 21:00 Glucagon (Glucagon) 1 mg ASDIRECTED PRN SC SEE LABEL COMMENTS; Start 05/10/18 at 19:15 Glucose (Glucose) 16 GM ASDIRECTED PRN PO SEE LABEL COMMENTS; Start 05/10/18 at 19:15 Heparin Sodium (Porcine) (Heparin) 5,000 units Q8H SQ Last administered on 05/17/18at 15:02; Start 05/10/18 at 22:00 Home Med (Med Rec Complete!) ASDIRECTED XX ; Start 05/10/18 at 20:30; Stop 05/10/18 at 20:30; Status DC Insulin Human Lispro (HumaLOG INSULIN) SEE PROTOCOL TABLE AC SC Last administered on 05/17/18at 12:05; Start 05/11/18 at 07:30 Insulin Human Lispro (HumaLOG INSULIN) SEE PROTOCOL TABLE QHS SC ; Start 05/10/18 at 21:00 Metformin HCl (Glucophage) 1,000 mg BID@,18 PO Last administered on 05/17/18 08:49; Start 05/11/18 at 08:00 Metoprolol Succinate (TopROL XL) 25 mg DAILY PO Last administered on 05/17/18 08:51; Start 05/11/18 at 09:00 Miconazole Nitrate (Monistat-7) 1 APPLICATORFUL VAGINALL... QHS PV ; Start 05/16/18 at 18:00; Stop 05/16/18 at 18:16; Status DC Oxycodone HCl (Roxicodone, Oxyir) 5 mg Q4HP PRN PO PAIN Last administered on 05/11/18 15:27; Start 05/10/18 at 19:15; Stop 05/16/18 at 18:08; Status DC Polyethylene Glycol (Miralax) 1 pkt DAILYPRN PRN PO CONSTIPATION Last administered on 05/15/18 08:21; Start 05/14/18 at 13:30 Prednisone (Deltasone) 10 mg DAILY PO Last administered on 05/17/18 08:51; Start 05/11/18 at 09:00 Simvastatin (Zocor) 20 mg QHS PO Last administered on 05/16/18 21:28; Start 05/10/18 at 21:00 Spironolactone (Aldactone) 25 mg BID PO Last administered on 05/17/18 08:51; Start 05/15/18 at 21:00 Spironolactone (Aldactone) 25 mg QAM PO Last administered on 05/15/18 08:21; Start 05/11/18 at 09:00; Stop 05/15/18 at 18:47; Status DC Zinc Oxide (Boudreauxs Butt Paste) APPLY TO AFFECTED AREA TID TOP Last administered on 05/17/18 15:02; Start 05/10/18 at 21:00 BRITTNY DODGE MD May 17, 2018 15:36
[2018-05-17 20:00] VITALS: BP 126/81
[2018-05-17] MEDS: SIMVASTATIN 20 MG TAB PO SCH (21:55)
[2018-05-18 05:00] VITALS: BP 138/98
[2018-05-18] MEDS: HEPARIN SOD (PORCINE) 5000 UNITS/ML VIAL SQ SCH ×3 (05:12→20:12)
[2018-05-18] MEDS: GABAPENTIN 300 MG CAP PO SCH ×3 (09:01→20:12)
[2018-05-18] MEDS: predniSONE 10 MG TAB PO SCH (09:01)
[2018-05-18] MEDS: SPIRONOLACTONE 25 MG TAB PO SCH ×2 (09:01→20:12)
[2018-05-18] MEDS: metFORMIN (GLUCOPHAGE) 1000 MG TABLET PO SCH ×2 (09:01→18:55)
[2018-05-18] MEDS: CHLORTHALIDONE 25 MG TAB PO SCH (09:01)
[2018-05-18] MEDS: HumaLOG INSULIN (NovoLOG) PER UNIT SC SCH ×4 (09:01→20:28)
[2018-05-18] MEDS: METOPROLOL SUCC *XL* 25MG TAB (TopROL *XL*) PO SCH (09:02)
[2018-05-18] MEDS: DOCUSATE SODIUM 100 MG CAP PO SCH ×3 (09:02→20:12)
[2018-05-18] MEDS: BOUDREAUX'S BUTT PASTE 4OZ TOP SCH ×3 (09:02→20:28)
--- NOTE | 2018-05-18 12:24 | IPNPDOC ---
Date Seen The patient was seen on 05/18/18. Progress Note HPI: 22F presented to [facility] ED on 05/06/18 with bilateral lower extremity weakness after bending forward and feeling a popping sensation a few d ays earlier. At first she felt pain and later developed weakness with urinary incontinence and saddle region anesthesia. Lumbar Spine MRI on 05/06/18 showed Disc protrusion with moderate canal stenosis is present at L3-L4 vertebral level.,disc protrusion with severe canal stenosis and compression of the cauda equine nerve roots is present at L4-L5 vertebral level. Disc bulging with moderate canal stenosis L5-S1. The pt was evaluated by Dr. Bazzi who performed a L3-L5 decompressive laminectomy with L4/L5 and L5/S1 discectomies without complications. Pt states strength in her legs improved significantly since the surgery, but reports weakness in her ankles and some persistent sensory loss in her feet. She states she has had 2 BM this AM and states sensation is normal. The pt was transferred to the care of YFN Horan, 05/10/18. The pt is OOB to chair. States paresthesia in feet seems to be improving. Denies pain today. Denies any fevers, chills, weakness, fatigue, Headache, Chest Pain, Shortness of breath, cough, palpitations, abdominal pain, N/V/D or changes in bowel or bladder habits. PMHx/PSHx: HTN HLD DM PCOS Obesity. BMI 39.6 dental surgery tonsillectomy PE: GEN: 22yoF, appears stated age. Well-nourished, well developed. No acute distress. Alert and oriented x 3. HEENT: Normocephalic, atraumatic. Sclera are nonicteric. Conjunctiva without injection. Moist mucous membranes. CHEST: Regular rate and rhythm, +S1, +S2 LUNGS: Clear to auscultation bilaterally. No wheezes, rales, or rhonchi. Breathing appears symmetric and easy. ABD: Round, soft, non-tender, non-distended. +Bowel sounds throughout. No rebound or guarding. No costovertebral angle tenderness. EXT: Pulses 2+ bilaterally dorsalis pedis and radial. No lower extremity edema appreciated. SKIN: [place], dry, warm. No rashes. NEURO: Alert and oriented x 3. No focal deficits appreciated. A&P: 22F presented to [facility] ED on 05/06/18 with bilateral lower extremity weakness after bending forward and feeling a popping sensation a few days earlier. At first she felt pain and later developed weakness with urinary incontinence and saddle region anesthesia. Lumbar Spine MRI on 05/06/18 showed Disc protrusion with moderate canal stenosis is present at L3-L4 vertebral level.,disc protrusion with severe canal stenosis and compression of the cauda equine nerve roots is present at L4-L5 vertebral level. Disc bulging with moderate canal stenosis L5-S1. The pt was evaluated by Dr. Bazzi who performed a L3-L5 decompressive laminectomy with L4/L5 and L5/S1 discectomies without complications. Pt states strength in her legs improved significantly since the surgery, but reports weakness in her ankles and some persistent sensory loss in her feet. She states she has had 2 BM this AM and states sensation is normal. The pt was transferred to the care of YFN Horan, 05/10/18. 1. L3-L5 decompressive laminectomy with L4/L5 and L5/S1 discectomies. Mgmt as per Neurosurgery, Dr Bazzi. [facility]. Outpt F/U with Dr Bazzi. Mgmt as per Dr Malick COULTER. PT/OT as per Dr Malick COULTER. Pain control as per Dr Malick COULTER. Bowel care as per Dr Malick COULTER. DVT prophylaxis as per Dr Malick COULTER. SQ Heparin. Disposition as per Dr Malick COULTER. Urinary retention. Guerra catheter removed. Mgmt as per Dr Malick COULTER. 2. HTN. Chlorthalidone/Toprol XL. Monitor. 3. HLD Zocor. 4. DM. CC diet SSI. Metformin. 5. PCOS. Metformin/Aldactone. 6. Hypokalemia. S/P po supplement. mag WNL. Aldactone dose increased to BID. WNL this AM. Monitor. 7. Leukocytosis. Pt is afebrile. Asymptomatic. Monitor. VS, I&O, 24H, Fishbone Vital Signs/I&O Vital Signs Date Time Temp Pulse Resp B/P (MAP) Pulse Ox O2 Delivery O2 Flow Rate FiO2 05/18/18 09:02 92 138/98 05/18/18 05:00 97.2 20 97 I&O- Last 24 Hours up to 6 AM 05/18/18 06:00 Intake Total 720 ml Output Total 1425 ml Balance -705 ml Laboratory Data 24H LABS Laboratory Tests 2 05/17/18 16:47: Bedside Glucose (Misc Panel) 202H 05/17/18 20:30: Bedside Glucose (Misc Panel) 203H 05/18/18 04:29: Bedside Glucose (Misc Panel) 147H 05/18/18 11:41: Bedside Glucose (Misc Panel) 201H Microbiology Microbiology 05/11/18 Urine Culture - Final, Complete Maria Teresa Liang May 18, 2018 12:24
[2018-05-18 14:00] VITALS: BP 134/84
--- NOTE | 2018-05-18 18:12 | IPNPDOC ---
PM&R Progress Note DATE OF SERVICE: May 18, 2018 Reporter Anchor Progress Note Subjective: Patient reports her right sided trunk pain is better after stretching. REVIEW OF SYSTEMS: The following is a completed review of systems and has been reviewed. Review of systems otherwise unremarkable. PAIN: Patient self reports no pain EYES: Negative for recent vision changes EARS, NOSE, & THROAT:denies throat or ear pain, no dysphagia CARDIOVASCULAR: denies chest pain or palpitations PULMONARY: Negative. Denies shortness of breath GASTROINTESTINAL: +fecal incontinence (improving) GENITOURINARY: +urinary incontinence (improving) MUSCULOSKELETAL: bilateral LE weakness NEUROLOGICAL: +cauda equina HEMATOLOGICAL: Negative SKIN: +sacral pressure ulcer, laminectomy incision PSYCHIATRIC: Unremarkable All other review of systems found to be negative. PHYSICAL EXAMINATION: VITAL SIGNS: Please see below. GENERAL: Pleasant and cooperative. No acute distress. HEENT: PERRL. Extraocular movements intact. Clear conjunctiva CARDIOVASCULAR: Regular rate and rhythm. No murmurs, rubs, or gallops LUNGS: Clear to auscultation bilaterally. No wheezes. No rhonchi ABDOMEN: Soft, nontender, nondistended. Positive bowel sounds. Normal active bowel sounds NEUROLOGICAL: Alert and oriented times three. Cranial nerves II through XII grossly intact. EXTREMITIES: 5\5 strength bilateral upper extremities. 4/5 bilateral hip flexors, 4/5 bilat knee extensors, 3/5 left ankle DF (lacking L5 contribution and unable to activate peroneus longus/brevis) 1/5 EHL, 3/5 ankle PF on left 0/5 right ankle DF or EHL, 2/5 ankle PF Sensation diminished to light touch right L4-S2 dermatomes, otherwise intact to light touch in all 4 limbs (-) Babinski bilat, (-) clonus Skin: incision c/d/i with mild erythema, non tender to palpation, no induration ASSESSMENT:22-year-old F with past medical history of PCOS and HTN who presents status post cauda equina syndrome: PLAN: 1. Rehab: PT/OT and assess for DME-multipodus boots while in bed to stretch heel cords, able to ambulate further with RW, will need AFOs for bilateral foot drop, given she has sensory deficits she will need Custom-braces to prevent further deformity and protect her from skin breakdown, she will need these AFOs for greater than 6 months-she is currently ambulating short distances and predicted to be a community ambulator, consult placed 2. Neuro: cauda equina syndrome s/p L3-L5 decompressive laminectomy with L4/L5 and L5/S1 discectomies performed 05/06/18, conus medullaris at L2 level-unclear at this time if spinal cord was affected in the setting of post-op edema, however initial imaging did not show cord signal abnormalities at L2 level -avoid NSAIDs, heavy lifting, and f/u with neurosurgery 3. CArdio:pmg HTN and HLD-c/u increased Spironolactone for elevated BPs in setting of mild [id number] consulted and recs appreciated 4. Endo: pmh PCOS and DM c/u spironolactone, metformin, and insulin coverage 5. Pain: oxycodone prn, gabapentin for neuropathic pain, will d/c valium as not taking 6. : admission UA and Ucx negative, s/p Guerra removal, c/u times void and bladder scan/PVRs, will order 1x dose Diflucan for discharge 7. GI ppx: Protonix, optimize bowel regimen, KUB +small amount of fecal retention, c/u bowel meds 8. DVT ppx: heparin 9. SKin: turn q2, barrier cream to sacrum BID plus optifoam, silver Optifoam to lumbar incision 10. DIspo: TBD, to home-progressing towards goals Allergies Coded Allergies: Penicillins (Verified Allergy, Intermediate, hives, 05/16/18) Vital Signs Vital Signs Date Time Temp Pulse Resp B/P (MAP) Pulse Ox O2 Delivery O2 Flow Rate FiO2 05/18/18 14:00 97.8 100 19 134/84 (101) 97 Laboratory Data Labs 24H Laboratory Tests 2 05/17/18 20:30: Bedside Glucose (Misc Panel) 203H 05/18/18 04:29: Bedside Glucose (Misc Panel) 147H 05/18/18 11:41: Bedside Glucose (Misc Panel) 201H 05/18/18 16:57: Bedside Glucose (Misc Panel) 163H Microbiology Microbiology 05/11/18 Urine Culture - Final, Complete Current Medications Current Medications Current Medications Acetaminophen (Tylenol Tab) 650 mg Q4HP PRN PO fever/MILD PAIN (PS 1-4) Last administered on 05/17/18 08:56; Start 05/10/18 at 19:15 Chlorthalidone (Hygroton) 25 mg DAILY PO Last administered on 05/18/18 09:01; Start 05/11/18 at 09:00 Dextrose (Dextrose 50%) 25 ml ASDIRECTED PRN IV SEE LABEL COMMENTS; Start 05/10/18 at 19:15 Diazepam (Valium) 5 mg Q8HP PRN PO ANXIETY; Start 05/10/18 at 19:15; Stop 05/16/18 at 18:08; Status DC Docusate Sodium (Colace) 100 mg TID PO Last administered on 05/17/18at 21:55; Start 05/10/18 at 21:00 Gabapentin (Neurontin) 300 mg TID PO Last administered on 05/18/18 09:01; Start 05/10/18 at 21:00 Glucagon (Glucagon) 1 mg ASDIRECTED PRN SC SEE LABEL COMMENTS; Start 05/10/18 at 19:15 Glucose (Glucose) 16 GM ASDIRECTED PRN PO SEE LABEL COMMENTS; Start 05/10/18 at 19:15 Heparin Sodium (Porcine) (Heparin) 5,000 units Q8H SQ Last administered on 05/18/18at 14:08; Start 05/10/18 at 22:00 Home Med (Med Rec Complete!) ASDIRECTED XX ; Start 05/10/18 at 20:30; Stop 05/10/18 at 20:30; Status DC Insulin Human Lispro (HumaLOG INSULIN) SEE PROTOCOL TABLE AC SC Last administered on 05/18/18at 14:09; Start 05/11/18 at 07:30 Insulin Human Lispro (HumaLOG INSULIN) SEE PROTOCOL TABLE QHS SC ; Start 05/10/18 at 21:00 Metformin HCl (Glucophage) 1,000 mg BID@08,18 PO Last administered on 05/18/18at 09:01; Start 05/11/18 at 08:00 Metoprolol Succinate (TopROL XL) 25 mg DAILY PO Last administered on 05/18/18at 09:02; Start 05/11/18 at 09:00 Miconazole Nitrate (Monistat-7) 1 APPLICATORFUL VAGINALL... QHS PV ; Start 05/16 at 18:00; Stop 05/16/18 at 18:16; Status DC Miconazole Nitrate (Monistat-7) 1 dose QHS PV ; Start 05/18/18 at 21:00; Stop 05/24/18 at 21:01 Oxycodone HCl (Roxicodone, Oxyir) 5 mg Q4HP PRN PO PAIN Last administered on 05/11/18 15:27; Start 05/10/18 at 19:15; Stop 05/16/18 at 18:08; Status DC Polyethylene Glycol (Miralax) 1 pkt DAILYPRN PRN PO CONSTIPATION Last administered on 05/15/18 08:21; Start 05/14/18 at 13:30 Prednisone (Deltasone) 10 mg DAILY PO Last administered on 05/18/18 09:01; Start 05/11/18 at 09:00 Simvastatin (Zocor) 20 mg QHS PO Last administered on 05/17/18 21:55; Start 05/10/18 at 21:00 Spironolactone (Aldactone) 25 mg BID PO Last administered on 05/18/18 09:01; Start 05/15/18 at 21:00 Spironolactone (Aldactone) 25 mg QAM PO Last administered on 05/15/18 08:21; Start 05/11/18 at 09:00; Stop 05/15/18 at 18:47; Status DC Zinc Oxide (Boudreauxs Butt Paste) APPLY TO AFFECTED AREA TID TOP Last administered on 05/18/18 09:02; Start 05/10/18 at 21:00 BRITTNY DODGE MD May 18, 2018 18:12
[2018-05-18 20:00] VITALS: BP 150/80
[2018-05-18] MEDS: SIMVASTATIN 20 MG TAB PO SCH (20:12)
[2018-05-18] MEDS: MICONAZOLE-7 VAGINAL 2% CREAM 47.7 GM PV SCH (21:00)
[2018-05-19] MEDS: HEPARIN SOD (PORCINE) 5000 UNITS/ML VIAL SQ SCH ×3 (05:53→21:15)
[2018-05-19 06:00] VITALS: BP 137/93
[2018-05-19 07:11] LABS: HEMATOCRIT 38.8 % (36.0-47.0); HEMOGLOBIN 13.2 g/dl (12.0-15.5); MEAN CORPUSCULAR HEMOGLOBIN 28.8 pg (27.0-33.0); MEAN CORPUSCULAR VOLUME 84.7 fl (80.0-96.0); PLATELET COUNT, AUTOMATED 428 10^3/uL (150-450); RED BLOOD COUNT 4.58 10^6/uL (4.00-5.40); WHITE BLOOD COUNT 13.3 10^3/uL (4.0-10.0)
[2018-05-19 07:32] LABS: BLOOD UREA NITROGEN 23 MG/DL (7-18); CALCIUM LEVEL 9.3 MG/DL (8.5-10.1); CARBON DIOXIDE LEVEL 30 MEQ/L (21-32); CHLORIDE LEVEL 98 MEQ/L (98-107); CREATININE FOR GFR 0.98 MG/DL (0.55-1.30); GLOMERULAR FILTRATION RATE > 60.0 (>60); GLUCOSE, FASTING 136 MG/DL (70-100); MAGNESIUM LEVEL 2.1 MG/DL (1.8-2.4); POTASSIUM SERUM 3.5 MEQ/L (3.5-5.1); SODIUM LEVEL 136 MEQ/L (136-145)
[2018-05-19] MEDS: SPIRONOLACTONE 25 MG TAB PO SCH ×2 (08:46→21:15)
[2018-05-19] MEDS: GABAPENTIN 300 MG CAP PO SCH ×3 (08:46→21:15)
[2018-05-19] MEDS: METOPROLOL SUCC *XL* 25MG TAB (TopROL *XL*) PO SCH (08:46)
[2018-05-19] MEDS: metFORMIN (GLUCOPHAGE) 1000 MG TABLET PO SCH ×2 (08:46→17:52)
[2018-05-19] MEDS: CHLORTHALIDONE 25 MG TAB PO SCH (08:46)
[2018-05-19] MEDS: predniSONE 10 MG TAB PO SCH (08:46)
[2018-05-19] MEDS: HumaLOG INSULIN (NovoLOG) PER UNIT SC SCH ×4 (08:47→21:00)
[2018-05-19] MEDS: DOCUSATE SODIUM 100 MG CAP PO SCH ×3 (08:47→21:15)
[2018-05-19] MEDS: BOUDREAUX'S BUTT PASTE 4OZ TOP SCH ×3 (08:48→21:00)
[2018-05-19] MEDS ORDERED: POTASSIUM CHLORIDE 10 MEQ SR TABLET PO ONE (09:00)
[2018-05-19 14:00] VITALS: BP 135/86
--- NOTE | 2018-05-19 15:26 | IPN ---
DATE OF SERVICE: 05/19/2018 Patient seen and examined. Lower extremity weakness reported some intermittent fecal incontinence. Denies any chest pain, pressure, discomfort. Denies any shortness of breath. VITAL SIGNS: Temperature 97.3, pulse 88, respirations 17, blood pressure 137/93, pulse oximetry 99% on room air. GENERAL: Facial hair is noted. Normocephalic, atraumatic. CARDIAC: Regular, S1, S2. PULMONARY: Bilateral clear. ABDOMEN: Soft, nontender. Positive bowel sounds. EXTREMITIES: Able to move bilateral upper extremities. Right lower extremity plantar flexion is significantly limited due to weakness. right foot drop. Sensation is intact. Dorsalis pedis (DP), posterior tibial (PT) pulses intact. ASSESSMENT AND PLAN: This is a 22-year-old female with underlying medical history of polycystic ovarian disease, initially presented polycystic ovarian syndrome, hypertension, dyslipidemia, diabetes mellitus, morbid obesity, initially presented to [facility] Emergency Room on 05/06/2018 with bilateral lower extremity weakness after bending forward and feeling a popping sensation a few days earlier. At first, patient felt pain, later developed weakness and urinary incontinence, saddle region anesthesia. Lumbar spine MRI, 05/06/2018, showed disc protrusion without moderate canal stenosis present at L3-L4 vertebral level. Disc protrusion with severe canal stenosis and compression of cauda equina root nerve is present at L4-L5 vertebral level, disc bulging with moderate canal stenosis at L5-S1. Patient was evaluated by Dr. Lockett, who performed L3 to L5 decompressive laminectomy with L4-L5 and L5-S1 discectomy without complication. Patient's strength of the leg improved significantly following surgery. Reported weakness in her ankles and some persistent sensory loss in her feet. Patient states that she still has some mild abnormal sensation during bowel movement. Patient was transferred to [facility] on 05/10/2018. PROBLEMS: L3 to L5 decompressive laminectomy with L4-L5 and L5-S1 discectomy secondary to spinal stenosis and cauda equina. Management of her neurosurgery at [facility]. Followup with Dr. Lockett. Management as per Dr. Teresa as well. Physical therapy (PT)/occupational therapy (OT), pain regimen, bowel care as per Dr. Teresa. Deep venous thrombosis (DVT) prophylaxis. On heparin subcu as per acute rehabilitation provider. Urinary retention. Guerra has been removed. Will follow closely. Hypertension. Continue chlorthalidone, metoprolol. Monitor blood pressure and continue spironolactone. Dyslipidemia. Continue statin. Diabetes. Insulin as per protocol. Metformin as ordered. Polycystic ovarian syndrome. Metformin, Aldactone. Hypokalemia. Oral supplementation, Aldactone. Monitor electrolytes. Leukocytosis. Patient afebrile. Will monitor clinically. Deep venous thrombosis (DVT) prophylaxis. Patient on heparin subcu as per acute rehabilitation provider. MTDD
[2018-05-19 20:00] VITALS: BP 135/79
[2018-05-19] MEDS: MICONAZOLE-7 VAGINAL 2% CREAM 47.7 GM PV SCH (21:00)
[2018-05-19] MEDS: ACETAMINOPHEN TAB 650MG DOSE (2X325MG) PO PRN (21:15)
[2018-05-19] MEDS: SIMVASTATIN 20 MG TAB PO SCH (21:15)
[2018-05-20] MEDS: HEPARIN SOD (PORCINE) 5000 UNITS/ML VIAL SQ SCH ×3 (05:13→21:11)
[2018-05-20 06:00] VITALS: BP 124/80
[2018-05-20 07:01] LABS: HEMATOCRIT 42.2 % (36.0-47.0); HEMOGLOBIN 13.9 g/dl (12.0-15.5); MEAN CORPUSCULAR HEMOGLOBIN 28.7 pg (27.0-33.0); MEAN CORPUSCULAR HGB CONC 32.9 g/dl (32.0-36.5); PLATELET COUNT, AUTOMATED 455 10^3/uL (150-450); RED BLOOD COUNT 4.85 10^6/uL (4.00-5.40); WHITE BLOOD COUNT 15.8 10^3/uL (4.0-10.0)
[2018-05-20 07:30] LABS: CALCIUM LEVEL 9.2 MG/DL (8.5-10.1); CREATININE FOR GFR 1.22 MG/DL (0.55-1.30); GLOMERULAR FILTRATION RATE 57.6 (>60); MAGNESIUM LEVEL 2.1 MG/DL (1.8-2.4); POTASSIUM SERUM 3.4 MEQ/L (3.5-5.1)
[2018-05-20] MEDS: METOPROLOL SUCC *XL* 25MG TAB (TopROL *XL*) PO SCH (08:45)
[2018-05-20] MEDS: SPIRONOLACTONE 25 MG TAB PO SCH ×2 (08:45→21:11)
[2018-05-20] MEDS: GABAPENTIN 300 MG CAP PO SCH ×3 (08:45→21:11)
[2018-05-20] MEDS: HumaLOG INSULIN (NovoLOG) PER UNIT SC SCH ×4 (08:45→20:24)
[2018-05-20] MEDS ORDERED: ONDANSETRON 4 MG TAB (S0181) PO PRN (08:45)
[2018-05-20] MEDS: DOCUSATE SODIUM 100 MG CAP PO SCH (08:45)
[2018-05-20] MEDS: metFORMIN (GLUCOPHAGE) 1000 MG TABLET PO SCH ×2 (08:46→18:05)
[2018-05-20] MEDS: predniSONE 10 MG TAB PO SCH (08:46)
[2018-05-20] MEDS: CHLORTHALIDONE 25 MG TAB PO SCH (08:46)
[2018-05-20] MEDS: BOUDREAUX'S BUTT PASTE 4OZ TOP SCH ×3 (08:47→21:00)
[2018-05-20] MEDS ORDERED: POTASSIUM CHLORIDE 10 MEQ SR TABLET PO ONE (09:00)
[2018-05-20] MEDS: ACETAMINOPHEN TAB 650MG DOSE (2X325MG) PO PRN (10:13)
[2018-05-20] MEDS ORDERED: METOCLOPRAMIDE 5 MG TAB PO PRN (10:45)
[2018-05-20 14:00] VITALS: BP 122/83
--- NOTE | 2018-05-20 18:05 | IPNPDOC ---
Text Note Date of Service The patient was seen on 05/20/18. NOTE Patient seen and examined. Lower extremity weakness reported some intermittent fecal incontinence. Denies any chest pain, pressure, discomfort. Denies any shortness of breath. GENERAL: Facial hair is noted. Normocephalic, atraumatic. CARDIAC: Regular, S1, S2. PULMONARY: Bilateral clear. ABDOMEN: Soft, nontender. Positive bowel sounds. EXTREMITIES: Able to move bilateral upper extremities. Right lower extremity plantar flexion is significantly limited due to weakness. right foot drop. Sensation is intact. Dorsalis pedis (DP), posterior tibial (PT) pulses intact. ASSESSMENT AND PLAN: This is a 22-year-old female with underlying medical history of polycystic ovarian disease, initially presented polycystic ovarian syndrome, hypertension, dyslipidemia, diabetes mellitus, morbid obesity, initially presented to [facility] Emergency Room on 05/06/2018 with bilateral lower extremity weakness after bending forward and feeling a popping sensation a few days earlier. At first, patient felt pain, later developed weakness and urinary incontinence, saddle region anesthesia. Lumbar spine MRI, 05/06/2018, showed disc protrusion without moderate canal stenosis present at L3-L4 vertebral level. Disc protrusion with severe canal stenosis and compression of cauda equina root nerve is present at L4-L5 vertebral level, disc bulging with moderate canal stenosis at L5-S1. Patient was evaluated by Dr. Lockett, who performed L3 to L5 decompressive laminectomy with L4-L5 and L5-S1 discectomy without complication. Patient's strength of the leg improved significantly following surgery. Reported weakness in her ankles and some persistent sensory loss in her feet. Patient states that she still has some mild abnormal sensation during bowel movement. Patient was transferred to [facility] on 05/10/2018. PROBLEMS: L3 to L5 decompressive laminectomy with L4-L5 and L5-S1 discectomy secondary to spinal stenosis and cauda equina. Management of her neurosurgery at [facility]. Followup with Dr. Lockett. Management as per Dr. Teresa as well. Physical therapy (PT)/occupational therapy (OT), pain regimen, bowel care as per Dr. Teresa. Deep venous thrombosis (DVT) prophylaxis. On heparin subcu as per acute rehabilitation provider. Urinary retention. Guerra has been removed. Will follow closely. Hypertension. Continue chlorthalidone, metoprolol. Monitor blood pressure and continue spironolactone. Dyslipidemia. Continue statin. Diabetes. Insulin as per protocol. Metformin as ordered. Polycystic ovarian syndrome. Metformin, Aldactone. Hypokalemia. Oral supplementation, Aldactone. Monitor electrolytes. Leukocytosis. Patient afebrile. Will monitor clinically. 2/2 to steroid Deep venous thrombosis (DVT) prophylaxis. Patient on heparin subcu as per acute rehabilitation provider. VS,Fishbone, I+O VS, Fishbone, I+O Laboratory Tests 05/20/18 06:47 Red Blood Count 4.85, Mean Corpuscular Volume 87.0, Mean Corpuscular Hemoglobin 28.7, Mean Corpuscular Hemoglobin Concent 32.9, Red Cell Distribution Width 12.4, Calcium Level 9.2 Vital Signs Date Time Temp Pulse Resp B/P (MAP) Pulse Ox O2 Delivery O2 Flow Rate FiO2 05/20/18 14:00 97.2 99 18 122/83 (96) 98 I&O- Last 24 Hours up to 6 AM 05/20/18 06:00 Intake Total 960 ml Output Total 1400 ml Balance -440 ml ZOHRA CATALAN MD May 20, 2018 18:05
[2018-05-20 20:07] VITALS: BP 136/75
[2018-05-20] MEDS: MICONAZOLE-7 VAGINAL 2% CREAM 47.7 GM PV SCH (21:00)
[2018-05-20] MEDS: SENOKOT S TAB PO SCH (21:11)
[2018-05-20] MEDS: SIMVASTATIN 20 MG TAB PO SCH (21:11)
[2018-05-21] MEDS: ACETAMINOPHEN TAB 650MG DOSE (2X325MG) PO PRN ×3 (04:31→19:36)
[2018-05-21] MEDS: HEPARIN SOD (PORCINE) 5000 UNITS/ML VIAL SQ SCH ×3 (05:38→21:44)
[2018-05-21 06:00] VITALS: BP 144/90
[2018-05-21 07:01] LABS: HEMATOCRIT 38.9 % (36.0-47.0); HEMOGLOBIN 13.1 g/dl (12.0-15.5); MEAN CORPUSCULAR HEMOGLOBIN 28.6 pg (27.0-33.0); MEAN CORPUSCULAR HGB CONC 33.7 g/dl (32.0-36.5); MEAN CORPUSCULAR VOLUME 84.9 fl (80.0-96.0); PLATELET COUNT, AUTOMATED 408 10^3/uL (150-450); RED BLOOD COUNT 4.58 10^6/uL (4.00-5.40)
[2018-05-21 07:25] LABS: BLOOD UREA NITROGEN 29 MG/DL (7-18); C REACTIVE PROTEIN QUANTITATIV 5.58 MG/DL (0.00-0.30); CALCIUM LEVEL 9.2 MG/DL (8.5-10.1); CARBON DIOXIDE LEVEL 28 MEQ/L (21-32); CHLORIDE LEVEL 97 MEQ/L (98-107); CREATININE FOR GFR 1.05 MG/DL (0.55-1.30); GLOMERULAR FILTRATION RATE > 60.0 (>60); GLUCOSE, FASTING 179 MG/DL (70-100); MAGNESIUM LEVEL 1.9 MG/DL (1.8-2.4); POTASSIUM SERUM 3.5 MEQ/L (3.5-5.1); SODIUM LEVEL 135 MEQ/L (136-145)
[2018-05-21] MEDS ORDERED: POTASSIUM CHLORIDE 10 MEQ SR TABLET PO ONE (08:00)
[2018-05-21] MEDS: SENOKOT S TAB PO SCH ×2 (08:56→21:44)
[2018-05-21] MEDS: metFORMIN (GLUCOPHAGE) 1000 MG TABLET PO SCH ×2 (08:56→17:17)
[2018-05-21] MEDS: predniSONE 10 MG TAB PO SCH (08:56)
[2018-05-21] MEDS: GABAPENTIN 300 MG CAP PO SCH ×3 (08:56→21:44)
[2018-05-21] MEDS: SPIRONOLACTONE 25 MG TAB PO SCH ×2 (08:56→21:44)
[2018-05-21] MEDS: CHLORTHALIDONE 25 MG TAB PO SCH (08:57)
[2018-05-21] MEDS: METOPROLOL SUCC *XL* 25MG TAB (TopROL *XL*) PO SCH (08:57)
[2018-05-21] MEDS: HumaLOG INSULIN (NovoLOG) PER UNIT SC SCH ×4 (08:57→21:00)
[2018-05-21] MEDS: BOUDREAUX'S BUTT PASTE 4OZ TOP SCH ×3 (08:58→21:46)
[2018-05-21] MEDS: LIDOCAINE 5% (LIDODERM) PATCH TD SCH (12:21)
[2018-05-21 15:00] VITALS: BP 170/89
--- NOTE | 2018-05-21 15:24 | IPNPDOC ---
PM&R Progress Note DATE OF SERVICE: May 21, 2018 Student Support Advisor Progress Note Subjective: Patient reports her right sided trunk pain is back and would like to trial lidoderm patch. She also is requesting handicap sticker paperwork to be filled out. REVIEW OF SYSTEMS: The following is a completed review of systems and has been reviewed. Review of systems otherwise unremarkable. PAIN: Patient self reports no pain EYES: Negative for recent vision changes EARS, NOSE, & THROAT:denies throat or ear pain, no dysphagia CARDIOVASCULAR: denies chest pain or palpitations PULMONARY: Negative. Denies shortness of breath GASTROINTESTINAL: +fecal incontinence (improving) GENITOURINARY: +urinary incontinence (improving) MUSCULOSKELETAL: bilateral LE weakness NEUROLOGICAL: +cauda equina HEMATOLOGICAL: Negative SKIN: +sacral pressure ulcer, laminectomy incision PSYCHIATRIC: Unremarkable All other review of systems found to be negative. PHYSICAL EXAMINATION: VITAL SIGNS: Please see below. GENERAL: Pleasant and cooperative. No acute distress. HEENT: PERRL. Extraocular movements intact. Clear conjunctiva CARDIOVASCULAR: Regular rate and rhythm. No murmurs, rubs, or gallops LUNGS: Clear to auscultation bilaterally. No wheezes. No rhonchi ABDOMEN: Soft, nontender, nondistended. Positive bowel sounds. Normal active bowel sounds NEUROLOGICAL: Alert and oriented times three. Cranial nerves II through XII grossly intact. EXTREMITIES: 5\5 strength bilateral upper extremities. 4/5 bilateral hip flexors, 4/5 bilat knee extensors, 3/5 left ankle DF (lacking L5 contribution and unable to activate peroneus longus/brevis) 1/5 EHL, 3/5 ankle PF on left 0/5 right ankle DF or EHL, 2/5 ankle PF Sensation diminished to light touch right L4-S2 dermatomes, otherwise intact to light touch in all 4 limbs (-) Babinski bilat, (-) clonus Skin: incision c/d/i with mild erythema, non tender to palpation, no induration ASSESSMENT:22-year-old F with past medical history of PCOS and HTN who presents status post cauda equina syndrome: PLAN: 1. Rehab: PT/OT and assess for DME-Multipodus boots while in bed to stretch heel cords, able to ambulate further with RW, will need AFOs for bilateral foot drop, given she has sensory deficits she will need Custom-braces to prevent further deformity and protect her from skin breakdown, she will need these AFOs for greater than 6 months-she is currently ambulating short distances and predicted to be a community ambulator, consult placed 2. Neuro: cauda equina syndrome s/p L3-L5 decompressive laminectomy with L4/L5 and L5/S1 discectomies performed 05/06/18, conus medullaris at L2 level-unclear at this time if spinal cord was affected in the setting of post-op edema, however initial imaging did not show cord signal abnormalities at L2 level -avoid NSAIDs, heavy lifting, and f/u with neurosurgery 3. Cardio:pmg HTN and HLD-c/u increased Spironolactone for elevated BPs in setting of mild [id number] consulted and recs appreciated 4. Endo: pmh PCOS and DM c/u spironolactone, metformin, and insulin coverage 5. Pain: oxycodone prn, gabapentin for neuropathic pain, will d/c valium as not taking 6. : admission UA and Ucx negative, s/p Guerra removal, c/u times void and bladder scan/PVRs, s/p 1x dose Diflucan for discharge 7. GI ppx: Protonix, optimize bowel regimen, KUB +small amount of fecal retention, c/u bowel meds 8. DVT ppx: heparin, will order Dopplers 9. SKin: turn q2, barrier cream to sacrum BID plus optifoam, silver Optifoam to lumbar incision 10. DIspo: 05/31/18, to home-progressing towards goals Allergies Coded Allergies: Penicillins (Verified Allergy, Intermediate, hives, 05/16/18) Vital Signs Vital Signs Date Time Temp Pulse Resp B/P (MAP) Pulse Ox O2 Delivery O2 Flow Rate FiO2 05/21/18 15:00 96.9 116 18 170/89 (116) 95 Laboratory Data CBC/BMP Laboratory Tests 05/21/18 06:46 Red Blood Count 4.58, Mean Corpuscular Volume 84.9, Mean Corpuscular Hemoglobin 28.6, Mean Corpuscular Hemoglobin Concent 33.7, Red Cell Distribution Width 12.2, Calcium Level 9.2 Labs 24H Laboratory Tests 2 05/20/18 16:46: Bedside Glucose (Misc Panel) 259H 05/20/18 20:06: Bedside Glucose (Misc Panel) 167H 05/21/18 06:46: Nucleated Red Blood Cells % (auto) 0.0, Anion Gap 10, Glomerular Filtration Rate > 60.0, Blood Urea Nitrogen 29H, Creatinine 1.05, Sodium Level 135L, Potassium Level 3.5, Chloride Level 97L, Carbon Dioxide Level 28, Calcium Level 9.2, Magnesium Level 1.9, C-Reactive Protein, Quantitative 5.58H 05/21/18 11:55: Bedside Glucose (Misc Panel) 160H Microbiology Microbiology 05/21/18 Blood Culture, Received Pending 05/21/18 Blood Culture, Received Pending 05/11/18 Urine Culture - Final, Complete Current Medications Current Medications Current Medications Acetaminophen (Tylenol Tab) 650 mg Q4HP PRN PO fever/MILD PAIN (PS 1-4) Last administered on 05/21/18at 08:59; Start 05/10/18 at 19:15 Chlorthalidone (Hygroton) 25 mg DAILY PO Last administered on 05/21/18at 08:57; Start 05/11/18 at 09:00 Dextrose (Dextrose 50%) 25 ml ASDIRECTED PRN IV SEE LABEL COMMENTS; Start 05/10/18 at 19:15 Diazepam (Valium) 5 mg Q8HP PRN PO ANXIETY; Start 05/10/18 at 19:15; Stop 05/16/18 at 18:08; Status DC Docusate Sodium (Colace) 100 mg TID PO Last administered on 05/20/18at 08:45; Start 05/10/18 at 21:00; Stop 05/20/18 at 10:43; Status DC Gabapentin (Neurontin) 300 mg TID PO Last administered on 05/21/18at 08:56; Start 05/10/18 at 21:00 Glucagon (Glucagon) 1 mg ASDIRECTED PRN SC SEE LABEL COMMENTS; Start 05/10/18 at 19:15 Glucose (Glucose) 16 GM ASDIRECTED PRN PO SEE LABEL COMMENTS; Start 05/10/18 at 19:15 Heparin Sodium (Porcine) (Heparin) 5,000 units Q8H SQ Last administered on 05/21/18at 14:03; Start 05/10/18 at 22:00 Home Med (Med Rec Complete!) ASDIRECTED XX ; Start 05/10/18 at 20:30; Stop at 20:30; Status DC Insulin Human Lispro (HumaLOG INSULIN) SEE PROTOCOL TABLE AC SC Last adm inistered on 05/21/18at 12:22; Start 05/11/18 at 07:30 Insulin Human Lispro (HumaLOG INSULIN) SEE PROTOCOL TABLE QHS SC ; Start 05/10/18 at 21:00 Lidocaine (Lidoderm Patch) 1 patch DAILY TD Last administered on 05/21/18at 12:21; Start 05/21/18 at 09:00 Metformin HCl (Glucophage) 1,000 mg BID@18 PO Last administered on 05/21/18 08:56; Start 05/11/18 at 08:00 Metoclopramide HCl (Reglan) 5 mg Q6HP PRN PO NAUSEA OR VOMITING Last administered on 05/20/18at 10:50; Start 05/20/18 at 10:45 Metoprolol Succinate (TopROL XL) 25 mg DAILY PO Last administered on 05/21/18at 08:57; Start 05/11/18 at 09:00 Miconazole Nitrate (Monistat-7) 1 APPLICATORFUL VAGINALL... QHS PV ; Start 05/16/18 at 18:00; Stop 05/16/18 at 18:16; Status DC Miconazole Nitrate (Monistat-7) 1 dose QHS PV ; Start 05/18/18 at 21:00; Stop 05/24/18 at 21:01 Non-Formulary Medication ( See Comment Field Below ) REMOVE LIDODERM PATCH DAILY@21 XX ; Start 05/21/18 at 21:00 Ondansetron HCl (Zofran) 4 mg Q6HP PRN PO NAUSEA OR VOMITING Last administered on 05/20/18at 09:05; Start 05/20/18 at 08:45 Oxycodone HCl (Roxicodone, Oxyir) 5 mg Q4HP PRN PO PAIN Last administered on 05/11/18at 15:27; Start 05/10/18 at 19:15; Stop 05/16/18 at 18:08; Status DC Polyethylene Glycol (Miralax) 1 pkt DAILYPRN PRN PO CONSTIPATION Last administered on 05/15/18at 08:21; Start 05/14/18 at 13:30 Prednisone (Deltasone) 10 mg DAILY PO Last administered on 05/21/18 08:56; Start 05/11/18 at 09:00 Senna/Docusate Sodium (Senokot S) 1 tab BID PO Last administered on 05/21/18 08:56; Start 05/20/18 at 21:00 Simvastatin (Zocor) 20 mg QHS PO Last administered on 05/20/18 21:11; Start 05/10/18 at 21:00 Spironolactone (Aldactone) 25 mg BID PO Last administered on 05/21/18 08:56; Start 05/15/18 at 21:00 Spironolactone (Aldactone) 25 mg QAM PO Last administered on 05/15/18 08:21; Start 05/11/18 at 09:00; Stop 05/15/18 at 18:47; Status DC Zinc Oxide (Boudreauxs Butt Paste) APPLY TO AFFECTED AREA TID TOP Last administered on 05/21/18 08:58; Start 05/10/18 at 21:00 BRITTNY DODGE MD May 21, 2018 15:24
--- NOTE | 2018-05-21 17:01 | IPNPDOC ---
Text Note Date of Service The patient was seen on 05/21/18. NOTE Patient seen and examined. Lower extremity weakness reported some intermittent fecal incontinence. Denies any chest pain, pressure, discomfort. Denies any shortness of breath. GENERAL: Facial hair is noted. Normocephalic, atraumatic. CARDIAC: Regular, S1, S2. PULMONARY: Bilateral clear. ABDOMEN: Soft, nontender. Positive bowel sounds. BACK: dressing c/d/i EXTREMITIES: Able to move bilateral upper extremities. Right lower extremity plantar flexion is significantly limited due to weakness. right foot drop. Sensation is intact. Dorsalis pedis (DP), posterior tibial (PT) pulses intact. ASSESSMENT AND PLAN: This is a 22-year-old female with underlying medical history of polycystic ovarian disease, initially presented polycystic ovarian syndrome, hypertension, dyslipidemia, diabetes mellitus, morbid obesity, initially presented to [facility] Emergency Room on 05/06/2018 with bilateral lower extremity weakness after bending forward and feeling a popping sensation a few days earlier. At first, patient felt pain, later developed weakness and urinary incontinence, saddle region anesthesia. Lumbar spine MRI, 05/06/2018, showed disc protrusion without moderate canal stenosis present at L3-L4 vertebral level. Disc protrusion with severe canal stenosis and compression of cauda equina root nerve is present at L4-L5 vertebral level, disc bulging with moderate canal stenosis at L5-S1. Patient was evaluated by Dr. Lockett, who performed L3 to L5 decompressive laminectomy with L4-L5 and L5-S1 discectomy without complication. Patient's strength of the leg improved significantly following surgery. Reported weakness in her ankles and some persistent sensory loss in her feet. Patient states that she still has some mild abnormal sensation during bowel movement. Patient was transferred to [facility] on 05/10/2018. PROBLEMS: L3 to L5 decompressive laminectomy with L4-L5 and L5-S1 discectomy secondary to spinal stenosis and cauda equina. Management of her neurosurgery at [facility]. Followup with Dr. Lockett. Management as per Dr. Teresa as well. Physical therapy (PT)/occupational therapy (OT), pain regimen, bowel care as per Dr. Teresa. Deep venous thrombosis (DVT) prophylaxis. On heparin subcu as per acute rehabilitation provider. Urinary retention. Guerra has been removed. Will follow closely. Hypertension. Continue chlorthalidone, metoprolol. Monitor blood pressure and continue spironolactone. Dyslipidemia. Continue statin. Diabetes. Insulin as per protocol. Metformin as ordered. Polycystic ovarian syndrome. Metformin, Aldactone. Hypokalemia. Oral supplementation, Aldactone. Monitor electrolytes. Leukocytosis. Patient afebrile. Will monitor clinically. 2/2 to steroid, cultures sent Deep venous thrombosis (DVT) prophylaxis. Patient on heparin subcu as per acute rehabilitation provider. VS,Bertbone, I+O VS, Fishbone, I+O Laboratory Tests 05/21/18 06:46 Red Blood Count 4.58, Mean Corpuscular Volume 84.9, Mean Corpuscular Hemoglobin 28.6, Mean Corpuscular Hemoglobin Concent 33.7, Red Cell Distribution Width 12.2, Calcium Level 9.2 Vital Signs Date Time Temp Pulse Resp B/P (MAP) Pulse Ox O2 Delivery O2 Flow Rate FiO2 05/21/18 15:00 96.9 116 18 170/89 (867) 95 I&O- Last 24 Hours up to 6 AM 05/21/18 06:00 Intake Total 960 ml Output Total 2900 ml Balance -1940 ml ZOHRA CATALAN MD May 21, 2018 17:01
[2018-05-21 20:00] VITALS: BP 138/84
[2018-05-21] MEDS ORDERED: **NOTE PATIENT COMMENT** MISC XX SCH (21:00)
[2018-05-21] MEDS: MICONAZOLE-7 VAGINAL 2% CREAM 47.7 GM PV SCH (21:00)
[2018-05-21] MEDS: SIMVASTATIN 20 MG TAB PO SCH (21:44)
[2018-05-22] MEDS: ACETAMINOPHEN TAB 650MG DOSE (2X325MG) PO PRN (03:07)
[2018-05-22] MEDS: HEPARIN SOD (PORCINE) 5000 UNITS/ML VIAL SQ SCH ×3 (05:15→21:22)
[2018-05-22 06:00] VITALS: BP 129/76
--- NOTE | 2018-05-22 07:30 | REP ---
Clinical: Recent back surgery and immobility . Technique: Vincent scale and color Doppler evaluation using linear high frequency transducer of the bilateral lower extremities . Findings: Ultrasound examination of the right and left lower extremity deep venous structures from the common femoral vein to the popliteal vein demonstrates normal compressibility flow and wave patterns in response to respiration and augmentation. There is no evidence for deep venous thrombosis. Impression: No evidence for deep venous thrombosis. Electronically Signed by Roe Mendoza MD 05/21/2018 05:57 P
[2018-05-22] MEDS: LIDOCAINE 5% (LIDODERM) PATCH TD SCH ×2 (08:37→21:25)
[2018-05-22] MEDS: predniSONE 10 MG TAB PO SCH (08:38)
[2018-05-22] MEDS: SENOKOT S TAB PO SCH ×2 (08:38→21:22)
[2018-05-22] MEDS: CHLORTHALIDONE 25 MG TAB PO SCH (08:38)
[2018-05-22] MEDS: MIRALAX *UNIT DOSE* 17GM PACKET PO PRN (08:38)
[2018-05-22] MEDS: METOPROLOL SUCC *XL* 25MG TAB (TopROL *XL*) PO SCH (08:38)
[2018-05-22] MEDS: metFORMIN (GLUCOPHAGE) 1000 MG TABLET PO SCH ×2 (08:38→18:16)
[2018-05-22] MEDS: HumaLOG INSULIN (NovoLOG) PER UNIT SC SCH ×4 (08:39→21:00)
[2018-05-22] MEDS: GABAPENTIN 300 MG CAP PO SCH ×3 (08:39→21:22)
[2018-05-22] MEDS: SPIRONOLACTONE 25 MG TAB PO SCH ×2 (08:39→21:22)
[2018-05-22] MEDS: BOUDREAUX'S BUTT PASTE 4OZ TOP SCH ×3 (08:40→21:24)
--- NOTE | 2018-05-22 10:45 | IPNPDOC ---
PM&R Progress Note DATE OF SERVICE: May 22, 2018 Cottrell Blower Progress Note Subjective: Patient reports her right sided trunk pain is better, but would like to try heating pad during the day and lidoderm at night. Asking when her sutures can come out. REVIEW OF SYSTEMS: The following is a completed review of systems and has been reviewed. Review of systems otherwise unremarkable. PAIN: Patient self reports no pain EYES: Negative for recent vision changes EARS, NOSE, & THROAT:denies throat or ear pain, no dysphagia CARDIOVASCULAR: denies chest pain or palpitations PULMONARY: Negative. Denies shortness of breath GASTROINTESTINAL: +fecal incontinence (improving) GENITOURINARY: +urinary incontinence (improving) MUSCULOSKELETAL: bilateral LE weakness NEUROLOGICAL: +cauda equina HEMATOLOGICAL: Negative SKIN: +sacral pressure ulcer, laminectomy incision PSYCHIATRIC: Unremarkable All other review of systems found to be negative. PHYSICAL EXAMINATION: VITAL SIGNS: Please see below. GENERAL: Pleasant and cooperative. No acute distress. HEENT: PERRL. Extraocular movements intact. Clear conjunctiva CARDIOVASCULAR: Regular rate and rhythm. No murmurs, rubs, or gallops LUNGS: Clear to auscultation bilaterally. No wheezes. No rhonchi ABDOMEN: Soft, nontender, nondistended. Positive bowel sounds. Normal active bowel sounds NEUROLOGICAL: Alert and oriented times three. Cranial nerves II through XII grossly intact. EXTREMITIES: 5\5 strength bilateral upper extremities. 4/5 bilateral hip flexors, 4/5 bilat knee extensors, 3/5 left ankle DF (lacking L5 contribution and unable to activate peroneus longus/brevis) 1/5 EHL, 3/5 ankle PF on left 0/5 right ankle DF or EHL, 2/5 ankle PF Sensation diminished to light touch right L4-S2 dermatomes, otherwise intact to light touch in all 4 limbs (-) Babinski bilat, (-) clonus Skin: incision c/d/i with mild erythema, non tender to palpation, no induration ASSESSMENT:22-year-old F with past medical history of PCOS and HTN who presents status post cauda equina syndrome: PLAN: 1. Rehab: PT/OT and assess for DME-Multipodus boots while in bed to stretch heel cords, able to ambulate further with RW, will need AFOs for bilateral foot drop, given she has sensory deficits she will need Custom-braces to prevent further deformity and protect her from skin breakdown, she will need these AFOs for greater than 6 months-she is currently ambulating short distances and predicted to be a community ambulator, consult placed 2. Neuro: cauda equina syndrome s/p L3-L5 decompressive laminectomy with L4/L5 and L5/S1 discectomies performed 05/06/18, conus medullaris at L2 level-unclear at this time if spinal cord was affected in the setting of post-op edema, however initial imaging did not show cord signal abnormalities at L2 level -avoid NSAIDs, heavy lifting, and f/u with neurosurgery 3. Cardio:pmg HTN and HLD-c/u increased Spironolactone for elevated BPs in setting of mild hgnfmvjeded-dsqneyxre-xwzrybba consulted and recs appreciated 4. Endo: pmh PCOS and DM c/u spironolactone, metformin, and insulin coverage 5. Pain: oxycodone prn, gabapentin for neuropathic pain, will d/c valium as not taking 6. : admission UA and Ucx negative, s/p Guerra removal, c/u times void and bladder scan/PVRs, s/p 1x dose Diflucan for discharge- initally was voiding, now retaining, will order repeat UA, concerned for UTI 7. GI ppx: Protonix, optimize bowel regimen, KUB +small amount of fecal retention, c/u bowel meds 8. DVT ppx: heparin, will order Dopplers 9. SKin: turn q2, barrier cream to sacrum BID plus optifoam, silver Optifoam to lumbar incision- sutures to be removed 06/11/18 10. DIspo: 05/31/18, to home-progressing towards goals Allergies Coded Allergies: Penicillins (Verified Allergy, Intermediate, hives, 05/16/18) Vital Signs Vital Signs Date Time Temp Pulse Resp B/P (MAP) Pulse Ox O2 Delivery O2 Flow Rate FiO2 05/22/18 08:38 96 129/76 05/22/18 06:00 96.8 18 93 Laboratory Data Labs 24H Laboratory Tests 2 05/21/18 11:55: Bedside Glucose (Misc Panel) 160H 05/21/18 16:53: Bedside Glucose (Misc Panel) 127H 05/21/18 20:41: Bedside Glucose (Misc Panel) 172H 05/22/18 05:47: Bedside Glucose (Misc Panel) 169H Microbiology Microbiology 05/21/18 Blood Culture - Preliminary, Resulted No growth after 24 hours . All specim... 05/21/18 Blood Culture - Preliminary, Resulted No growth after 24 hours . All specim... Current Medications Current Medications Current Medications Acetaminophen (Tylenol Tab) 650 mg Q4HP PRN PO fever/MILD PAIN (PS 1-4) Last administered on 05/22/18at 03:07; Start 05/10/18 at 19:15 Chlorthalidone (Hygroton) 25 mg DAILY PO Last administered on 05/22/18at 08:38; Start 05/11/18 at 09:00 Dextrose (Dextrose 50%) 25 ml ASDIRECTED PRN IV SEE LABEL COMMENTS; Start 05/10/18 at 19:15 Diazepam (Valium) 5 mg Q8HP PRN PO ANXIETY; Start 05/10/18 at 19:15; Stop 04/21 09/07 at 18:08; Status DC Docusate Sodium (Colace) 100 mg TID PO Last administered on 05/20/18at 08:45; Start 05/10/18 at 21:00; Stop 05/20/18 at 10:43; Status DC Gabapentin (Neurontin) 300 mg TID PO Last administered on 05/22/18at 08:39; Start 05/10/18 at 21:00 Glucagon (Glucagon) 1 mg ASDIRECTED PRN SC SEE LABEL COMMENTS; Start 05/10/18 at 19:15 Glucose (Glucose) 16 GM ASDIRECTED PRN PO SEE LABEL COMMENTS; Start 05/10/18 at 19:15 Heparin Sodium (Porcine) (Heparin) 5,000 units Q8H SQ Last administered on 05/22/18at 05:15; Start 05/10/18 at 22:00 Home Med (Med Rec Complete!) ASDIRECTED XX ; Start 05/10/18 at 20:30; Stop 05/10/18 at 20:30; Status DC Insulin Human Lispro (HumaLOG INSULIN) SEE PROTOCOL TABLE AC SC Last administered on 05/21/18at 17:17; Start 05/11/18 at 07:30 Insulin Human Lispro (HumaLOG INSULIN) SEE PROTOCOL TABLE QHS SC ; Start 05/10/18 at 21:00 Lidocaine (Lidoderm Patch) 1 patch DAILY TD Last administered on 05/22/18 08:37; Start 05/21/18 at 09:00 Metformin HCl (Glucophage) 1,000 mg BID@08,18 PO Last administered on 05/22/18 08:38; Start 05/11/18 at 08:00 Metoclopramide HCl (Reglan) 5 mg Q6HP PRN PO NAUSEA OR VOMITING Last administered on 05/20/18 10:50; Start 05/20/18 at 10:45 Metoprolol Succinate (TopROL XL) 25 mg DAILY PO Last administered on 05/22/18 08:38; Start 05/11/18 at 09:00 Miconazole Nitrate (Monistat-7) 1 APPLICATORFUL VAGINALL... QHS PV ; Start at 18:00; Stop 05/16/18 at 18:16; Status DC Miconazole Nitrate (Monistat-7) 1 dose QHS PV ; Start 05/18/18 at 21:00; Stop 05/24/18 at 21:01 Non-Formulary Medication ( See Comment Field Below ) REMOVE LIDODERM PATCH DAILY@21 XX Last administered on 05/21/18 21:46; Start 05/21/18 at 21:00 Ondansetron HCl (Zofran) 4 mg Q6HP PRN PO NAUSEA OR VOMITING Last administered on 05/20/18 09:05; Start 05/20/18 at 08:45 Oxycodone HCl (Roxicodone, Oxyir) 5 mg Q4HP PRN PO PAIN Last administered on 05/11/18 15:27; Start 05/10/18 at 19:15; Stop 05/16/18 at 18:08; Status DC Polyethylene Glycol (Miralax) 1 pkt DAILYPRN PRN PO CONSTIPATION Last administered on 05/22/18 08:38; Start 05/14/18 at 13:30 Prednisone (Deltasone) 10 mg DAILY PO Last administered on 05/22/18 08:38; Start 05/11/18 at 09:00 Senna/Docusate Sodium (Senokot S) 1 tab BID PO Last administered on 05/22/18 08:38; Start 05/20/18 at 21:00 Simvastatin (Zocor) 20 mg QHS PO Last administered on 05/21/18at 21:44; Start 05/10/18 at 21:00 Spironolactone (Aldactone) 25 mg BID PO Last administered on 05/22/18 08:39; Start 05/15/18 at 21:00 Spironolactone (Aldactone) 25 mg QAM PO Last administered on 05/15/18 08:21; Start 05/11/18 at 09:00; Stop 05/15/18 at 18:47; Status DC Zinc Oxide (Boudreauxs Butt Paste) APPLY TO AFFECTED AREA TID TOP Last administered on 05/22/18 08:40; Start 05/10/18 at 21:00 BRITTNY DODGE MD May 22, 2018 10:45
[2018-05-22 13:29] LABS: HEMATOCRIT 40.6 % (36.0-47.0); HEMOGLOBIN 13.8 g/dl (12.0-15.5); MEAN CORPUSCULAR HEMOGLOBIN 29.6 pg (27.0-33.0); MEAN CORPUSCULAR VOLUME 87.1 fl (80.0-96.0); PLATELET COUNT, AUTOMATED 407 10^3/uL (150-450); RED BLOOD COUNT 4.66 10^6/uL (4.00-5.40); WHITE BLOOD COUNT 16.5 10^3/uL (4.0-10.0)
[2018-05-22 14:00] VITALS: BP 140/84
--- NOTE | 2018-05-22 19:41 | IPNPDOC ---
Date Seen The patient was seen on 05/22/18. Progress Note SUBJECTIVE: Patient reports that she is feeling well today. She tells me she is voiding but does not feel she is emptying completely OBJECTIVE PHYSICAL EXAMINATION: VITAL SIGNS: Please see below. GENERAL: obese female appears older than stated age laying on her left side nad HEENT: Hirsutism she is wearing glasses cranial nerves grossly intact CARDIOVASCULAR: S1-S2 regular. RESPIRATORY: Clear to auscultation bilaterally. ABDOMINAL: Morbidly obese bowel sounds present abdomen is soft EXTREMITIES: Somewhat wasted no clubbing cyanosis or edema NEUROLOGICAL: Unchanged from previously documented exams LABORATORY DATA, IMAGING STUDIES, MICROBIOLOGY: Please see below. DVT prophylaxis ordered?: Heparin ASSESSMENT AND PLAN: This is a 22-year-old female with cauda equina syndrome resolving status post decompressive laminectomy and discectomy 1. L3 to L5 decompressive laminectomy with L4-L5 and L5-S1 discectomy secondary to spinal stenosis and cauda equina. Management of her neurosurgery at [facility]. Followup with Dr. Lockett. Management as per Dr. Teresa as well. Physical therapy (PT)/occupational therapy (OT) 2. Urinary retention. Guerra has been removed. We'll have nursing check postvoid residuals and follow-up 3. Hypertension. Continue chlorthalidone, metoprolol. Monitor blood pressure and continue spironolactone. 4. Dyslipidemia. Continue statin. 5. Diabetes. Insulin as per protocol. Metformin as ordered. 6. Polycystic ovarian syndrome. Metformin, Aldactone. 7. Leukocytosis. Patient afebrile. Will monitor clinically. / to steroid, cultures sent and negative VS, I&O, 24H, Fishbone Vital Signs/I&O Vital Signs Date Time Temp Pulse Resp B/P (MAP) Pulse Ox O2 Delivery O2 Flow Rate FiO2 05/22/18 14:00 98.3 100 20 140/84 (102) 94 I&O- Last 24 Hours up to 6 AM 05/22/18 05:59 Intake Total 600 ml Output Total 1350 ml Balance -750 ml Laboratory Data 24H LABS Laboratory Tests 2 05/21/18 20:41: Bedside Glucose (Misc Panel) 172H 05/22/18 05:47: Bedside Glucose (Misc Panel) 169H 05/22/18 11:46: Bedside Glucose (Misc Panel) 173H 05/22/18 13:13: Nucleated Red Blood Cells % (auto) 0.0 05/22/18 17:38: Bedside Glucose (Misc Panel) 135H 05/22/18 18:35: Urine Color YELLOW, Urine Appearance CLOUDYH, Urine pH 5.0, Urine Specific [place] 1.023, Urine Protein NEGATIVE, Urine Glucose (UA) NEGATIVE, Urine Ketones NEGATIVE, Urine Blood NEGATIVE, Urine Nitrite NEGATIVE, Urine Bilirubin NEGATIVE, Urine Urobilinogen 4.0H, Urine Leukocyte Esterase 3+H, Urine WBC (Auto) TNTCH, Urine RBC (Auto) 0, Urine Hyaline Casts (Auto) 0, Urine Bacteria (Auto) 3+H, Urine Squamous Epithelial Cells 0, Urine Mucus (Auto) SMALL, Urine Sperm (Auto) CBC/BMP Laboratory Tests 05/22/18 13:13 Red Blood Count 4.66, Mean Corpuscular Volume 87.1, Mean Corpuscular Hemoglobin 29.6, Mean Corpuscular Hemoglobin Concent 34.0, Red Cell Distribution Width 12.4 Microbiology Microbiology 05/21/18 Blood Culture - Preliminary, Resulted No growth after 24 hours . All specim... 05/21/18 Blood Culture - Preliminary, Resulted No growth after 24 hours . All specim... 05/22/18 Urine Culture, Received Pending CIELO CARBALLO MD May 22, 2018 19:41
[2018-05-22 20:00] VITALS: BP 136/82
[2018-05-22] MEDS: SIMVASTATIN 20 MG TAB PO SCH (21:22)
[2018-05-22] MEDS: MICONAZOLE-7 VAGINAL 2% CREAM 47.7 GM PV SCH (21:25)
[2018-05-23] MEDS: HEPARIN SOD (PORCINE) 5000 UNITS/ML VIAL SQ SCH ×3 (05:12→20:37)
[2018-05-23 06:00] VITALS: BP 132/80
[2018-05-23 06:39] LABS: HEMATOCRIT 38.1 % (36.0-47.0); HEMOGLOBIN 12.8 g/dl (12.0-15.5); MEAN CORPUSCULAR HGB CONC 33.6 g/dl (32.0-36.5); MEAN CORPUSCULAR VOLUME 86.4 fl (80.0-96.0); PLATELET COUNT, AUTOMATED 382 10^3/uL (150-450); RED BLOOD COUNT 4.41 10^6/uL (4.00-5.40); WHITE BLOOD COUNT 14.8 10^3/uL (4.0-10.0)
[2018-05-23 07:04] LABS: ERYTHROCYTE SEDIMENTATION RATE 62 mm/hr (0-20)
[2018-05-23 07:06] LABS: BLOOD UREA NITROGEN 29 MG/DL (7-18); CALCIUM LEVEL 9.4 MG/DL (8.5-10.1); CARBON DIOXIDE LEVEL 30 MEQ/L (21-32); CHLORIDE LEVEL 97 MEQ/L (98-107); CREATININE FOR GFR 0.92 MG/DL (0.55-1.30); GLOMERULAR FILTRATION RATE > 60.0 (>60); GLUCOSE, FASTING 144 MG/DL (70-100); POTASSIUM SERUM 3.2 MEQ/L (3.5-5.1); SODIUM LEVEL 135 MEQ/L (136-145)
[2018-05-23 07:07] LABS: ATYPICAL LYMPH 3 % (0-5); LYMPHOCYTES 43 % (16-52); MONOCYTES 5 % (0-8); NEUTROPHILS 49 % (35-75)
[2018-05-23 07:08] LABS: PLATELET ESTIMATE NORMAL (NORMAL)
[2018-05-23] MEDS: metFORMIN (GLUCOPHAGE) 1000 MG TABLET PO SCH ×2 (08:05→16:14)
[2018-05-23] MEDS: SPIRONOLACTONE 25 MG TAB PO SCH ×2 (08:05→20:37)
[2018-05-23] MEDS: GABAPENTIN 300 MG CAP PO SCH ×3 (08:05→20:37)
[2018-05-23] MEDS: CHLORTHALIDONE 25 MG TAB PO SCH (08:05)
[2018-05-23] MEDS: SENOKOT S TAB PO SCH ×2 (08:05→20:37)
[2018-05-23] MEDS: predniSONE 10 MG TAB PO SCH (08:05)
[2018-05-23] MEDS: METOPROLOL SUCC *XL* 25MG TAB (TopROL *XL*) PO SCH (08:06)
[2018-05-23] MEDS: HumaLOG INSULIN (NovoLOG) PER UNIT SC SCH ×4 (08:06→20:30)
[2018-05-23] MEDS: BOUDREAUX'S BUTT PASTE 4OZ TOP SCH ×3 (08:09→20:36)
[2018-05-23] MEDS: **NOTE PATIENT COMMENT** MISC XX SCH (08:09)
[2018-05-23] MEDS ORDERED: POTASSIUM CHLORIDE 10 MEQ SR TABLET PO ONE (10:00)
[2018-05-23] MEDS: POTASSIUM CHLORIDE 10 MEQ SR TABLET PO SCH (10:27)
--- NOTE | 2018-05-23 12:59 | IPNPDOC ---
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 REVIEW OF SYSTEMS: The following is a completed review of systems and has been reviewed. Review of systems otherwise unremarkable. PAIN: Patient self reports no pain EYES: Negative for recent vision changes EARS, NOSE, & THROAT:denies throat or ear pain, no dysphagia CARDIOVASCULAR: denies chest pain or palpitations PULMONARY: Negative. Denies shortness of breath GASTROINTESTINAL: +fecal incontinence (improving) GENITOURINARY: +urinary incontinence (improving) MUSCULOSKELETAL: bilateral LE weakness NEUROLOGICAL: +cauda equina HEMATOLOGICAL: Negative SKIN: +sacral pressure ulcer, laminectomy incision PSYCHIATRIC: Unremarkable All other review of systems found to be negative. PHYSICAL EXAMINATION: VITAL SIGNS: Please see below. GENERAL: Pleasant and cooperative. No acute distress. HEENT: PERRL. Extraocular movements intact. Clear conjunctiva CARDIOVASCULAR: Regular rate and rhythm. No murmurs, rubs, or gallops LUNGS: Clear to auscultation bilaterally. No wheezes. No rhonchi ABDOMEN: Soft, nontender, nondistended. Positive bowel sounds. Normal active bow el sounds NEUROLOGICAL: Alert and oriented times three. Cranial nerves II through XII grossly intact. EXTREMITIES: 5\5 strength bilateral upper extremities. 4/5 bilateral hip flexors, 4/5 bilat knee extensors, 3/5 left ankle DF (lacking L5 contribution and unable to activate peroneus longus/brevis) 1/5 EHL, 3/5 ankle PF on left 0/5 right ankle DF or EHL, 2/5 ankle PF Sensation diminished to light touch right L4-S2 dermatomes, otherwise intact to light touch in all 4 limbs (-) Babinski bilat, (-) clonus Skin: incision c/d/i with mild erythema, non tender to palpation, no induration -sacrum with erythema ASSESSMENT:22-year-old F with past medical history of PCOS and HTN who presents status post cauda equina syndrome: PLAN: 1. Rehab: PT/OT and assess for DME-Multipodus boots while in bed to stretch heel cords, able to ambulate further with RW, will need AFOs for bilateral foot drop, given she has sensory deficits she will need Custom-braces to prevent further deformity and protect her from skin breakdown, she will need these AFOs for greater than 6 months-she is currently ambulating short distances and predicted to be a community ambulator, consult placed 2. Neuro: cauda equina syndrome s/p L3-L5 decompressive laminectomy with L4/L5 and L5/S1 discectomies performed 05/06/18, conus medullaris at L2 level-unclear at this time if spinal cord was affected in the setting of post-op edema, however initial imaging did not show cord signal abnormalities at L2 level -avoid NSAIDs, heavy lifting, and f/u with neurosurgery 3. Cardio:pmg HTN and HLD-c/u increased Spironolactone for elevated BPs in setting of mild uvikdwsxcgy-nzxagjlbb-yhbeiode consulted and recs appreciated 4. Endo: pmh PCOS and DM c/u spironolactone, metformin, and insulin coverage 5. Pain: oxycodone prn, gabapentin for neuropathic pain, will d/c valium as not taking 6. : admission UA and Ucx negative, s/p Guerra removal, c/u times void and bladder scan/PVRs, s/p 1x dose Diflucan for discharge- initially was voiding, now retaining, r repeat UA with bacteria, will await Ucx, concerned for UTI 7. GI ppx: Protonix, optimize bowel regimen, KUB +small amount of fecal retention, c/u bowel meds 8. DVT ppx: heparin, dopplers negative 9. SKin: turn q2, barrier cream to sacrum BID plus optifoam, silver Optifoam to lumbar incision- sutures to be removed 06/11/18 10. Hypokalmeia- persistent bordferline low potassium, will start daily 20meq and one time dose of 40 today- f/u BMP 05/25/18 10. DIspo: 05/31/18, to home-progressing towards goals Allergies Coded Allergies: Penicillins (Verified Allergy, Intermediate, hives, 05/16/18) Vital Signs Vital Signs Date Time Temp Pulse Resp B/P (MAP) Pulse Ox O2 Delivery O2 Flow Rate FiO2 05/23/18 08:06 100 132/80 05/23/18 06:00 97.7 18 93 Laboratory Data CBC/BMP Laboratory Tests 05/22/18 13:13 Red Blood Count 4.66, Mean Corpuscular Volume 87.1, Mean Corpuscular Hemoglobin 29.6, Mean Corpuscular Hemoglobin Concent 34.0, Red Cell Distribution Width 12.4 05/23/18 06:11 Red Blood Count 4.41, Mean Corpuscular Volume 86.4, Mean Corpuscular Hemoglobin 29.0, Mean Corpuscular Hemoglobin Concent 33.6, Red Cell Distribution Width 12.1, Lymphocytes # (Auto) , Calcium Level 9.4 Labs 24H Laboratory Tests 2 05/22/18 13:13: Nucleated Red Blood Cells % (auto) 0.0 05/22/18 17:38: Bedside Glucose (Misc Panel) 135H 05/22/18 18:35: Urine Color YELLOW, Urine Appearance CLOUDYH, Urine pH 5.0, Urine Specific [place] 1.023, Urine Protein NEGATIVE, Urine Glucose (UA) NEGATIVE, Urine Ketones NEGATIVE, Urine Blood NEGATIVE, Urine Nitrite NEGATIVE, Urine Bilirubin NEGATIVE, Urine Urobilinogen 4.0H, Urine Leukocyte Esterase 3+H, Urine WBC (Auto) TNTCH, Urine RBC (Auto) 0, Urine Hyaline Casts (Auto) 0, Urine Bacteria ( Auto) 3+H, Urine Squamous Epithelial Cells 0, Urine Mucus (Auto) SMALL, Urine Sperm (Auto) 05/22/18 20:09: Bedside Glucose (Misc Panel) 152H 05/23/18 06:11: White Blood Count 14.8H, Red Blood Count 4.41, Hemoglobin 12.8, Hematocrit 38.1, Mean Corpuscular Volume 86.4, Mean Corpuscular Hemoglobin 29.0, Mean Corpuscular Hemoglobin Concent 33.6, Red Cell Distribution Width 12.1, Platelet Count 382, Lymphocytes # (Auto) , Nucleated Red Blood Cells % (auto) 0.0, Neutrophils 49, Lymphocytes (Manual) 43, Monocytes (Manual) 5, Atypical Lymphocytes 3, Platelet Estimate NORMAL, Red Blood Cell Morphology NORMAL, Erythrocyte Sedimentation Rate 62H, Anion Gap 8, Glomerular Filtration Rate > 60.0, Blood Urea Nitrogen 29H, Creatinine 0.92, Sodium Level 135L, Potassium Level 3.2L, Chloride Level 97L, Carbon Dioxide Level 30, Calcium Level 9.4 05/23/18 11:42: Bedside Glucose (Misc Panel) 203H Microbiology Microbiology 05/21/18 Blood Culture - Preliminary, Resulted No Growth after 48 hours. All Specime... 4/1/19 Blood Culture - Preliminary, Resulted No Growth after 48 hours. All Specime... 05/22/18 Urine Culture, Received Pending Current Medications Current Medications Current Medications Acetaminophen (Tylenol Tab) 650 mg Q4HP PRN PO fever/MILD PAIN (PS 1-4) Last administered on 05/22/18at 03:07; Start 05/10/18 at 19:15 Chlorthalidone (Hygroton) 25 mg DAILY PO Last administered on 05/23/18at 08:05; Start 05/11/18 at 09:00 Dextrose (Dextrose 50%) 25 ml ASDIRECTED PRN IV SEE LABEL COMMENTS; Start 05/10/18 at 19:15 Diazepam (Valium) 5 mg Q8HP PRN PO ANXIETY; Start 05/10/18 at 19:15; Stop 05/16/18 at 18:08; Status DC Docusate Sodium (Colace) 100 mg TID PO Last administered on 05/20/18at 08:45; Start 05/10/18 at 21:00; Stop 05/20/18 at 10:43; Status DC Gabapentin (Neurontin) 300 mg TID PO Last administered on 05/23/18at 08:05; Start 05/10/18 at 21:00 Glucagon (Glucagon) 1 mg ASDIRECTED PRN SC SEE LABEL COMMENTS; Start 05/10/18 at 19:15 Glucose (Glucose) 16 GM ASDIRECTED PRN PO SEE LABEL COMMENTS; Start 05/10/18 at 19:15 Heparin Sodium (Porcine) (Heparin) 5,000 units Q8H SQ Last administered on 05/23/18at 05:12; Start 05/10/18 at 22:00 Home Med (Med Rec Complete!) ASDIRECTED XX ; Start 05/10/18 at 20:30; Stop 05/10/18 at 20:30; Status DC Insulin Human Lispro (HumaLOG INSULIN) SEE PROTOCOL TABLE AC SC Last administered on 05/23/18at 12:04; Start 05/11/18 at 07:30 Insulin Human Lispro (HumaLOG INSULIN) SEE PROTOCOL TABLE QHS SC ; Start 05/10/18 at 21:00 Lidocaine (Lidoderm Patch) 1 patch DAILY TD Last administered on 05/22/18at 08:37; Start 05/21/18 at 09:00; Stop 05/22/18 at 14:52; Status DC Lidocaine (Lidoderm Patch) 1 patch QHS TD Last administered on 05/22/18 21:25; Start 05/22/18 at 21:00 Metformin HCl (Glucophage) 1,000 mg BID@08,18 PO Last administered on 05/23/18 08:05; Start 05/11/18 at 08:00 Metoclopramide HCl (Reglan) 5 mg Q6HP PRN PO NAUSEA OR VOMITING Last administered on 05/20/18 10:50; Start 05/20/18 at 10:45 Metoprolol Succinate (TopROL XL) 25 mg DAILY PO Last administered on 05/23/18 08:06; Start 05/11/18 at 09:00 Miconazole Nitrate (Monistat-7) 1 APPLICATORFUL VAGINALL... QHS PV ; Start 05/16/18 at 18:00; Stop 05/16/18 at 18:16; Status DC Miconazole Nitrate (Monistat-7) 1 dose QHS PV Last administered on 05/22/18 21:25; Start 05/18/18 at 21:00; Stop 05/24/18 at 21:01 Non-Formulary Medication ( See Comment Field Below ) REMOVE LIDODERM PATCH DAILY@0900 XX Last administered on 05/23/18 08:09; Start 05/23/18 at 09:00 Non-Formulary Medication ( See Comment Field Below ) REMOVE LIDODERM PATCH DAILY@21 XX Last administered on 05/21/18 21:46; Start 05/21/18 at 21:00; Stop 05/22/18 at 14:53; Status DC Ondansetron HCl (Zofran) 4 mg Q6HP PRN PO NAUSEA OR VOMITING Last administered on 05/20/18 09:05; Start 05/20/18 at 08:45 Oxycodone HCl (Roxicodone, Oxyir) 5 mg Q4HP PRN PO PAIN Last administered on 05/11/18 15:27; Start 05/10/18 at 19:15; Stop 05/16/18 at 18:08; Status DC Polyethylene Glycol (Miralax) 1 pkt DAILYPRN PRN PO CONSTIPATION Last ad ministered on 05/22/18 08:38; Start 05/14/18 at 13:30 Potassium Chloride (Micro-K Extencaps) 20 meq DAILY PO Last administered on 05/23/18 10:27; Start 05/23/18 at 10:00 Prednisone (Deltasone) 10 mg DAILY PO Last administered on 05/23/18 08:05; Start 05/11/18 at 09:00 Senna/Docusate Sodium (Senokot S) 1 tab BID PO Last administered on 05/23/18 08:05; Start 05/20/18 at 21:00 Simvastatin (Zocor) 20 mg QHS PO Last administered on 05/22/18 21:22; Start 05/10/18 at 21:00 Spironolactone (Aldactone) 25 mg BID PO Last administered on 05/23/18 08:05; Start 05/15/18 at 21:00 Spironolactone (Aldactone) 25 mg QAM PO Last administered on 05/15/18 08:21; Start 05/11/18 at 09:00; Stop 05/15/18 at 18:47; Status DC Zinc Oxide (Boudreauxs Butt Paste) APPLY TO AFFECTED AREA TID TOP Last administered on 05/23/18 08:09; Start 05/10/18 at 21:00 BRITTNY DODGE MD May 23, 2018 12:59
[2018-05-23 14:00] VITALS: BP 138/90
--- NOTE | 2018-05-23 14:39 | IPNPDOC ---
Date Seen The patient was seen on 05/23/18. Progress Note SUBJECTIVE: Patient reports no complaints she tells me she was unable to void this morning and NT her bladder completely requiring catheterization. Otitis tells me she is feeling well OBJECTIVE PHYSICAL EXAMINATION: VITAL SIGNS: Please see below. GENERAL: obese female appears older than stated age sitting in street clothes in a chair HEENT: Hirsutism she is wearing glasses cranial nerves grossly intact CARDIOVASCULAR: S1-S2 regular. RESPIRATORY: Clear to auscultation bilaterally. ABDOMINAL: Morbidly obese bowel sounds present abdomen is soft EXTREMITIES: Somewhat wasted no clubbing cyanosis or edema NEUROLOGICAL: Unchanged from previously documented exams LABORATORY DATA, IMAGING STUDIES, MICROBIOLOGY: Please see below. DVT prophylaxis ordered?: Heparin ASSESSMENT AND PLAN: This is a 22-year-old female with cauda equina syndrome resolving status post decompressive laminectomy and discectomy 1. L3 to L5 decompressive laminectomy with L4-L5 and L5-S1 discectomy secondary to spinal stenosis and cauda equina. Management of her neurosurgery at [facility]. Followup with Dr. Lockett. Management as per Dr. Teresa as well. Physical therapy (PT)/occupational therapy (OT). 2. Urinary retention. Guerra has been removed. Unfortunately her PVR still quite elevated my suspicion is that this is related to her recent cauda equina that she may be catheter dependent for the near future. Dr. Teresa is sent a UA should she not have any obvious urinary tract infection would recommend twice a day self catheterizations I did discuss this with the patient and she is agreeab le to it if need be 3. Hypertension. Continue chlorthalidone, metoprolol. Monitor blood pressure and continue spironolactone. 4. Dyslipidemia. Continue statin. 5. Diabetes. Insulin as per protocol. Metformin as ordered. 6. Polycystic ovarian syndrome. Metformin, Aldactone. 7. Leukocytosis. Patient afebrile. Will monitor clinically. 2/2 to steroid, cultures sent and negative 8. Hypokalemia: Repleted already continue to monitor VS, I&O, 24H, Fishbone Vital Signs/I&O Vital Signs Date Time Temp Pulse Resp B/P (MAP) Pulse Ox O2 Delivery O2 Flow Rate FiO2 05/23/18 08:06 100 132/80 05/23/18 06:00 97.7 18 93 I&O- Last 24 Hours up to 6 AM 05/23/18 06:00 Intake Total 960 ml Output Total 1005 ml Balance -45 ml Laboratory Data 24H LABS Laboratory Tests 2 05/22/18 17:38: Bedside Glucose (Misc Panel) 135H 05/22/18 18:35: Urine Color YELLOW, Urine Appearance CLOUDYH, Urine pH 5.0, Urine Specific [place] 1.023, Urine Protein NEGATIVE, Urine Glucose (UA) NEGATIVE, Urine Ketones NEGATIVE, Urine Blood NEGATIVE, Urine Nitrite NEGATIVE, Urine Bilirubin NEGATIVE, Urine Urobilinogen 4.0H, Urine Leukocyte Esterase 3+H, Urine WBC (Auto) TNTCH, Urine RBC (Auto) 0, Urine Hyaline Casts (Auto) 0, Urine Bacteria (Auto) 3+H, Urine Squamous Epithelial Cells 0, Urine Mucus (Auto) SMALL, Urine Sperm (Auto) 05/22/18 20:09: Bedside Glucose (Misc Panel) 152H 05/23/18 06:11: White Blood Count 14.8H, Red Blood Count 4.41, Hemoglobin 12.8, Hematocrit 38.1, Mean Corpuscular Volume 86.4, Mean Corpuscular Hemoglobin 29.0, Mean Corpuscular Hemoglobin Concent 33.6, Red Cell Distribution Width 12.1, Platelet Count 382, Lymphocytes # (Auto) , Nucleated Red Blood Cells % (auto) 0.0, Neutrophils 49, Lymphocytes (Manual) 43, Monocytes (Manual) 5, Atypical Lymphocytes 3, Platelet Estimate NORMAL, Red Blood Cell Morphology NORMAL, Erythrocyte Sedimentation Rate 62H, Anion Gap 8, Glomerular Filtration Rate > 60.0, Blood Urea Nitrogen 29H, Creatinine 0.92, Sodium Level 135L, Potassium Level 3.2L, Chloride Level 97L, Carbon Dioxide Level 30, Calcium Level 9.4 05/23/18 11:42: Bedside Glucose (Misc Panel) 203H CBC/BMP Laboratory Tests 05/23/18 06:11 Red Blood Count 4.41, Mean Corpuscular Volume 86.4, Mean Corpuscular Hemoglobin 29.0, Mean Corpuscular Hemoglobin Concent 33.6, Red Cell Distribution Width 12.1, Lymphocytes # (Auto) , Calcium Level 9.4 Microbiology Microbiology 05/21/18 Blood Culture - Preliminary, Resulted No Growth after 48 hours. All Specime... 05/21/18 Blood Culture - Preliminary, Resulted No Growth after 48 hours. All Specime... 05/22/18 Urine Culture, Received Pending CIELO CARBALLO MD May 23, 2018 14:39
[2018-05-23 20:00] VITALS: BP 133/82
[2018-05-23] MEDS: LIDOCAINE 5% (LIDODERM) PATCH TD SCH (20:36)
[2018-05-23] MEDS: SIMVASTATIN 20 MG TAB PO SCH (20:37)
[2018-05-23] MEDS: MICONAZOLE-7 VAGINAL 2% CREAM 47.7 GM PV SCH (20:37)
[2018-05-24 06:00] VITALS: BP 141/94
[2018-05-24] MEDS: HEPARIN SOD (PORCINE) 5000 UNITS/ML VIAL SQ SCH ×3 (06:13→21:09)
[2018-05-24] MEDS: CHLORTHALIDONE 25 MG TAB PO SCH (08:58)
[2018-05-24] MEDS: predniSONE 10 MG TAB PO SCH (08:58)
[2018-05-24] MEDS: metFORMIN (GLUCOPHAGE) 1000 MG TABLET PO SCH ×2 (08:59→17:20)
[2018-05-24] MEDS: POTASSIUM CHLORIDE 10 MEQ SR TABLET PO SCH (08:59)
[2018-05-24] MEDS: GABAPENTIN 300 MG CAP PO SCH ×3 (08:59→21:09)
[2018-05-24] MEDS: SENOKOT S TAB PO SCH ×2 (08:59→21:09)
[2018-05-24] MEDS: SPIRONOLACTONE 25 MG TAB PO SCH ×2 (08:59→21:09)
[2018-05-24] MEDS: METOPROLOL SUCC *XL* 25MG TAB (TopROL *XL*) PO SCH (08:59)
[2018-05-24] MEDS ORDERED: NITROFURANTOIN (MACROBID) 100 MG CAP PO SCH (09:00)
[2018-05-24] MEDS: HumaLOG INSULIN (NovoLOG) PER UNIT SC SCH ×4 (09:00→20:51)
[2018-05-24] MEDS: **NOTE PATIENT COMMENT** MISC XX SCH ×2 (09:00→21:10)
[2018-05-24] MEDS: BOUDREAUX'S BUTT PASTE 4OZ TOP SCH ×3 (09:00→21:10)
--- NOTE | 2018-05-24 13:03 | IPNPDOC ---
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 REVIEW OF SYSTEMS: The following is a completed review of systems and has been reviewed. Review of systems otherwise unremarkable. PAIN: Patient self reports no pain EYES: Negative for recent vision changes EARS, NOSE, & THROAT:denies throat or ear pain, no dysphagia CARDIOVASCULAR: denies chest pain or palpitations PULMONARY: Negative. Denies shortness of breath GASTROINTESTINAL: +fecal incontinence (improving) GENITOURINARY: +urinary retention (improving) MUSCULOSKELETAL: bilateral LE weakness NEUROLOGICAL: +cauda equina HEMATOLOGICAL: Negative SKIN: +sacral pressure ulcer, laminectomy incision PSYCHIATRIC: Unremarkable All other review of systems found to be negative. PHYSICAL EXAMINATION: VITAL SIGNS: Please see below. GENERAL: Pleasant and cooperative. No acute distress. HEENT: PERRL. Extraocular movements intact. Clear conjunctiva CARDIOVASCULAR: Regular rate and rhythm. No murmurs, rubs, or gallops LUNGS: Clear to auscultation bilaterally. No wheezes. No rhonchi ABDOMEN: Soft, nontender, nondistended. Positive bowel sounds. Normal active bowel sounds NEUROLOGICAL: Alert and oriented times three. Cranial nerves II through XII grossly intact. EXTREMITIES: 5\5 strength bilateral upper extremities. 4/5 bilateral hip flexors, 4/5 bilat knee extensors, 3/5 left ankle DF (lacking L5 contribution and unable to activate peroneus longus/brevis) 1/5 EHL, 3/5 ankle PF on left 0/5 right ankle DF or EHL, 2/5 ankle PF Sensation diminished to light touch right L4-S2 dermatomes, otherwise intact to light touch in all 4 limbs (-) Babinski bilat, (-) clonus Skin: incision c/d/i with mild erythema, non tender to palpation, no induration -sacrum with erythema -right greater trochanter TTP, no swelling or erythema ASSESSMENT:22-year-old F with past medical history of PCOS and HTN who presents status post cauda equina syndrome: PLAN: 1. Rehab: PT/OT and assess for DME-Multipodus boots while in bed to stretch heel cords, able to ambulate further with RW, will need AFOs for bilateral foot drop, given she has sensory deficits she will need Custom-braces to prevent further deformity and protect her from skin breakdown, she will need these AFOs for greater than 6 months-she is currently ambulating short distances and predicted to be a community ambulator, consult placed -room privileges from wheelchair level 2. Neuro: cauda equina syndrome s/p L3-L5 decompressive laminectomy with L4/L5 and L5/S1 discectomies performed 05/06/18, conus medullaris at L2 level-unclear at this time if spinal cord was affected in the setting of post-op edema, however initial imaging did not show cord signal abnormalities at L2 level -avoid NSAIDs, heavy lifting, and f/u with neurosurgery 3. Cardio:pmg HTN and HLD-c/u increased Spironolactone for elevated BPs in setting of mild cgxtsolkrux-jckbsagqo-howccmre consulted and recs appreciated 4. Endo: pmh PCOS and DM c/u spironolactone, metformin, and insulin coverage 5. Pain: oxycodone prn, gabapentin for neuropathic pain, will d/c valium as not taking 6. : admission UA and Ucx negative, s/p Guerra removal, c/u times void and bladder scan/PVRs, s/p 1x dose Diflucan for discharge- initially was voiding, now retaining, repeat Uxc +E. Coli will treat with macrobid x 7days 7. GI ppx: Protonix, optimize bowel regimen, KUB +small amount of fecal retention, c/u bowel meds 8. DVT ppx: heparin, dopplers negative 9. SKin: turn q2, barrier cream to sacrum BID plus optifoam, silver Optifoam to lumbar incision- sutures to be removed 06/11/18 10. Hypokalmeia- persistent borderline low potassium, will start daily 20meq and one time dose of 40 today- f/u BMP 05/25/18 10. DIspo: 05/31/18, to home-progressing towards goals Allergies Coded Allergies: Penicillins (Verified Allergy, Intermediate, hives, 05/16/18) Vital Signs Vital Signs Date Time Temp Pulse Resp B/P (MAP) Pulse Ox O2 Delivery O2 Flow Rate FiO2 05/24/18 08:59 93 141/94 05/24/18 06:00 98.8 18 97 Laboratory Data Labs 24H Laboratory Tests 2 05/23/18 16:12: Bedside Glucose (Misc Panel) 212H 05/23/18 20:11: Bedside Glucose (Misc Panel) 110H 05/24/18 06:12: Bedside Glucose (Misc Panel) 133H 05/24/18 11:55: Bedside Glucose (Misc Panel) 133H Microbiology Microbiology 05/21/18 Blood Culture - Preliminary, Resulted No Growth after 72 hours. All specime... 05/21/18 Blood Culture - Preliminary, Resulted No Growth after 72 hours. All specime... 05/22/18 Urine Culture - Final, Complete Escherichia Coli Lactobacillus Species Current Medications Current Medications Current Medications Acetaminophen (Tylenol Tab) 650 mg Q4HP PRN PO fever/MILD PAIN (PS 1-4) Last administered on 05/22/18at 03:07; Start 05/10/18 at 19:15 Chlorthalidone (Hygroton) 25 mg DAILY PO Last administered on 05/24/18at 08:58; Start 05/11/18 at 09:00 Dextrose (Dextrose 50%) 25 ml ASDIRECTED PRN IV SEE LABEL COMMENTS; Start 05/10/18 at 19:15 Diazepam (Valium) 5 mg Q8HP PRN PO ANXIETY; Start 05/10/18 at 19:15; Stop 05/16/18 at 18:08; Status DC Docusate Sodium (Colace) 100 mg TID PO Last administered on 05/20/18at 08:45; Start 05/10/18 at 21:00; Stop 05/20/18 at 10:43; Status DC Gabapentin (Neurontin) 300 mg TID PO Last administered on 05/24/18at 08:59; Start 05/10/18 at 21:00 Glucagon (Glucagon) 1 mg ASDIRECTED PRN SC SEE LABEL COMMENTS; Start 05/10/18 at 19:15 Glucose (Glucose) 16 GM ASDIRECTED PRN PO SEE LABEL COMMENTS; Start 05/10/18 at 19:15 Heparin Sodium (Porcine) (Heparin) 5,000 units Q8H SQ Last administered on 05/24/18at 06:13; Start 05/10/18 at 22:00 Home Med (Med Rec Complete!) ASDIRECTED XX ; Start 05/10/18 at 20:30; Stop 05/10/18 at 20:30; Status DC Insulin Human Lispro (HumaLOG INSULIN) SEE PROTOCOL TABLE AC SC Last administered on 05/24/18at 12:15; Start 05/11/18 at 07:30 Insulin Human Lispro (HumaLOG INSULIN) SEE PROTOCOL TABLE QHS SC ; Start 05/10/18 at 21:00 Lidocaine (Lidoderm Patch) 1 patch DAILY TD Last administered on 05/22/18at 08:37; Start 05/21/18 at 09:00; Stop 05/22/18 at 14:52; Status DC Lidocaine (Lidoderm Patch) 1 patch QHS TD Last administered on 05/23/18at 20:36; Start 05/22/18 at 21:00 Metformin HCl (Glucophage) 1,000 mg BID@08,18 PO Last administered on 05/24/18 08:59; Start 05/11/18 at 08:00 Metoclopramide HCl (Reglan) 5 mg Q6HP PRN PO NAUSEA OR VOMITING Last administered on 05/20/18at 10:50; Start 05/20/18 at 10:45 Metoprolol Succinate (TopROL XL) 25 mg DAILY PO Last administered on 05/24/18 08:59; Start 05/11/18 at 09:00 Miconazole Nitrate (Monistat-7) 1 APPLICATORFUL VAGINALL... QHS PV ; Start 05/16/18 at 18:00; Stop 05/16/18 at 18:16; Status DC Miconazole Nitrate (Monistat-7) 1 dose QHS PV Last administered on 05/23/18at 20: 37; Start 05/18/18 at 21:00; Stop 05/24/18 at 21:01 Nitrofurantoin Monoh/Nitrofur Macro (Macrobid) 100 mg BID PO ; Start 05/24/18 at 09:00 Nitrofurantoin Monoh/Nitrofur Macro (Macrobid) 100 mg BID PO ; Start 05/24/18 at 13:00; Stop 05/30/18 at 12:59; Status UNV Non-Formulary Medication ( See Comment Field Below ) REMOVE LIDODERM PATCH DAILY@0900 XX Last administered on 05/23/18at 08:09; Start 05/23/18 at 09:00 Non-Formulary Medication ( See Comment Field Below ) REMOVE LIDODERM PATCH DAILY@21 XX Last administered on 05/21/18 21:46; Start 05/21/18 at 21:00; Stop 05/22/18 at 14:53; Status DC Ondansetron HCl (Zofran) 4 mg Q6HP PRN PO NAUSEA OR VOMITING Last administered on 05/20/18 09:05; Start 05/20/18 at 08:45 Oxycodone HCl (Roxicodone, Oxyir) 5 mg Q4HP PRN PO PAIN Last administered on 05/11/18 15:27; Start 05/10/18 at 19:15; Stop 05/16/18 at 18:08; Status DC Polyethylene Glycol (Miralax) 1 pkt DAILYPRN PRN PO CONSTIPATION Last administered on 05/22/18 08:38; Start 05/14/18 at 13:30 Potassium Chloride (Micro-K Extencaps) 20 meq DAILY PO Last administered on 05/24/18 08:59; Start 05/23/18 at 10:00 Prednisone (Deltasone) 10 mg DAILY PO Last administered on 05/24/18 08:58; Start 05/11/18 at 09:00 Senna/Docusate Sodium (Senokot S) 1 tab BID PO Last administered on 05/24/18 08:59; Start 05/20/18 at 21:00 Simvastatin (Zocor) 20 mg QHS PO Last administered on 05/23/18 20:37; Start 05/10/18 at 21:00 Spironolactone (Aldactone) 25 mg BID PO Last administered on 05/24/18 08:59; Start 05/15/18 at 21:00 Spironolactone (Aldactone) 25 mg QAM PO Last administered on 05/15/18 08:21; Start 05/11/18 at 09:00; Stop 05/15/18 at 18:47; Status DC Zinc Oxide (Boudreauxs Butt Paste) APPLY TO AFFECTED AREA TID TOP Last administered on 05/24/18 09:00; Start 05/10/18 at 21:00 BRITTNY DODGE MD May 24, 2018 13:03
[2018-05-24] MEDS: LIDOCAINE 5% (LIDODERM) PATCH TD SCH ×2 (13:15→21:09)
[2018-05-24] MEDS ORDERED: FLUCONAZOLE 50MG TABLET PO ONE (13:30)
[2018-05-24 14:00] VITALS: BP 138/82
[2018-05-24] MEDS: NITROFURANTOIN (MACROBID) 100 MG CAP PO SCH ×2 (15:17→21:09)
--- NOTE | 2018-05-24 17:49 | IPNPDOC ---
Date Seen The patient was seen on 05/24/18. Progress Note SUBJECTIVE: Patient reports no complaints she tells me she feels well OBJECTIVE PHYSICAL EXAMINATION: VITAL SIGNS: Please see below. GENERAL: obese female appears older than stated age sitting in street clothes in a chair working with PT, nad HEENT: Hirsutism she is wearing glasses cranial nerves grossly intact CARDIOVASCULAR: S1-S2 regular. RESPIRATORY: Clear to auscultation bilaterally. ABDOMINAL: Morbidly obese bowel sounds present abdomen is soft EXTREMITIES: Somewhat wasted no clubbing cyanosis or edema NEUROLOGICAL: Unchanged from previously documented exams LABORATORY DATA, IMAGING STUDIES, MICROBIOLOGY: Please see below. DVT prophylaxis ordered?: Heparin ASSESSMENT AND PLAN: This is a 22-year-old female with cauda equina syndrome resolving status post decompressive laminectomy and discectomy 1. L3 to L5 decompressive laminectomy with L4-L5 and L5-S1 discectomy secondary to spinal stenosis and cauda equina. Management of her neurosurgery at [facility]. Followup with Dr. Lockett. Management as per Dr. Teresa as well. Physical therapy (PT)/occupational therapy (OT). Doing quite well at this time 2. Urinary retention. Guerra has been removed. Unfortunately her PVR remained elevated, her U/A is positive, would rec intermitten straight cath possibly BID, will start macrobid BID for 5 days and the nre evaluate the need for self cath vs. PVR. May benefit from urology outpatient referral 3. Hypertension. Continue chlorthalidone, metoprolol. Monitor blood pressure and continue spironolactone. 4. Dyslipidemia. Continue statin. 5. Diabetes. Insulin as per protocol. Metformin as ordered. 6. Polycystic ovarian syndrome. Metformin, Aldactone. 7. Leukocytosis. Patient afebrile. Will monitor clinically. 2/2 to steroid, cultures sent and negative 8. Hypokalemia: Repleted recheck tomorrow VS, I&O, 24H, [place]bone Vital Signs/I&O Vital Signs Date Time Temp Pulse Resp B/P (MAP) Pulse Ox O2 Delivery O2 Flow Rate FiO2 05/24/18 14:00 97.7 102 20 138/82 (100) 96 I&O- Last 24 Hours up to 6 AM 05/24/18 06:00 Intake Total 1320 ml Output Total 2000 ml Balance -680 ml Laboratory Data 24H LABS Laboratory Tests 2 05/23/18 20:11: Bedside Glucose (Misc Panel) 110H 05/24/18 06:12: Bedside Glucose (Misc Panel) 133H 05/24/18 11:55: Bedside Glucose (Misc Panel) 133H 05/24/18 16:37: Bedside Glucose (Misc Panel) 202H Microbiology Microbiology 05/21/18 Blood Culture - Preliminary, Resulted No Growth after 72 hours. All specime... 05/21/18 Blood Culture - Preliminary, Resulted No Growth after 72 hours. All specime... 05/22/18 Urine Culture - Final, Complete Escherichia Coli Lactobacillus Species CIELO CARBALLO MD May 24, 2018 17:49
[2018-05-24 20:00] VITALS: BP 122/77
[2018-05-24] MEDS: MICONAZOLE-7 VAGINAL 2% CREAM 47.7 GM PV SCH (21:09)
[2018-05-24] MEDS: SIMVASTATIN 20 MG TAB PO SCH (21:09)
[2018-05-25 06:06] VITALS: BP 123/85
[2018-05-25] MEDS: HEPARIN SOD (PORCINE) 5000 UNITS/ML VIAL SQ SCH ×3 (06:09→21:25)
[2018-05-25 06:55] LABS: HEMATOCRIT 37.7 % (36.0-47.0); HEMOGLOBIN 12.6 g/dl (12.0-15.5); MEAN CORPUSCULAR HGB CONC 33.4 g/dl (32.0-36.5); MEAN CORPUSCULAR VOLUME 86.7 fl (80.0-96.0); PLATELET COUNT, AUTOMATED 378 10^3/uL (150-450); RED BLOOD COUNT 4.35 10^6/uL (4.00-5.40); WHITE BLOOD COUNT 11.7 10^3/uL (4.0-10.0)
[2018-05-25 07:16] LABS: BASOPHILS 2 % (0-4); LYMPHOCYTES 36 % (16-52); MONOCYTES 8 % (0-8); NEUTROPHILS 54 % (35-75); PLATELET ESTIMATE NORMAL (NORMAL)
[2018-05-25 07:27] LABS: BLOOD UREA NITROGEN 29 MG/DL (7-18); CALCIUM LEVEL 9.6 MG/DL (8.5-10.1); CARBON DIOXIDE LEVEL 33 MEQ/L (21-32); CHLORIDE LEVEL 97 MEQ/L (98-107); GLOMERULAR FILTRATION RATE > 60.0 (>60); GLUCOSE, FASTING 123 MG/DL (70-100); POTASSIUM SERUM 3.3 MEQ/L (3.5-5.1); SODIUM LEVEL 136 MEQ/L (136-145)
[2018-05-25 08:47] LABS: MAGNESIUM LEVEL 1.9 MG/DL (1.8-2.4)
[2018-05-25] MEDS: NITROFURANTOIN (MACROBID) 100 MG CAP PO SCH ×2 (08:58→21:24)
[2018-05-25] MEDS: SENOKOT S TAB PO SCH ×2 (08:58→21:24)
[2018-05-25] MEDS: CHLORTHALIDONE 25 MG TAB PO SCH (08:58)
[2018-05-25] MEDS: SPIRONOLACTONE 25 MG TAB PO SCH ×2 (08:58→21:24)
[2018-05-25] MEDS: GABAPENTIN 300 MG CAP PO SCH ×3 (08:58→21:24)
[2018-05-25] MEDS: predniSONE 10 MG TAB PO SCH (08:58)
[2018-05-25] MEDS: metFORMIN (GLUCOPHAGE) 1000 MG TABLET PO SCH ×2 (08:58→17:29)
[2018-05-25] MEDS: POTASSIUM CHLORIDE 10 MEQ SR TABLET PO SCH (08:58)
[2018-05-25] MEDS: METOPROLOL SUCC *XL* 25MG TAB (TopROL *XL*) PO SCH (08:59)
[2018-05-25] MEDS: **NOTE PATIENT COMMENT** MISC XX SCH ×2 (09:00→21:27)
[2018-05-25] MEDS: HumaLOG INSULIN (NovoLOG) PER UNIT SC SCH ×4 (09:00→20:10)
[2018-05-25] MEDS: BOUDREAUX'S BUTT PASTE 4OZ TOP SCH ×3 (09:00→21:27)
[2018-05-25] MEDS: LIDOCAINE 5% (LIDODERM) PATCH TD SCH ×2 (09:00→21:27)
[2018-05-25] MEDS ORDERED: POTASSIUM CHLORIDE 10 MEQ SR TABLET PO ONE (11:00)
[2018-05-25 14:00] VITALS: BP 125/78
--- NOTE | 2018-05-25 16:27 | IPNPDOC ---
Date Seen The patient was seen on 05/25/18. Progress Note SUBJECTIVE: Patient reports no improvement in urinary symptoms, she still feels as though she isn't completely voiding OBJECTIVE PHYSICAL EXAMINATION: VITAL SIGNS: Please see below. GENERAL: obese female appears older than stated age sitting in street clothes in a chair no acute distress, she is accompanied by her mother HEENT: Hirsutism she is wearing glasses cranial nerves grossly intact CARDIOVASCULAR: S1-S2 regular. RESPIRATORY: Clear to auscultation bilaterally. ABDOMINAL: Morbidly obese bowel sounds present abdomen is soft EXTREMITIES: Somewhat wasted no clubbing cyanosis or edema NEUROLOGICAL: Unchanged from previously documented exams LABORATORY DATA, IMAGING STUDIES, MICROBIOLOGY: Please see below. DVT prophylaxis ordered?: Heparin ASSESSMENT AND PLAN: This is a 22-year-old female with cauda equina syndrome resolving status post decompressive laminectomy and discectomy 1. L3 to L5 decompressive laminectomy with L4-L5 and L5-S1 discectomy secondary to spinal stenosis and cauda equina. Management of her neurosurgery at [facility]. Followup with Dr. Lockett. Management as per Dr. Teresa as well. Physical therapy (PT)/occupational therapy (OT). Doing quite well at this time 2. Urinary retention. Guerra has been removed. Unfortunately her PVR remained elevated, her U/A is positive, she is continued on Macrobid with minimal improvement in her symptoms okay to monitor should complete a 5 day course she may require continued intermittent catheterizations moving forward related to her spinal disease 3. Hypertension. Continue chlorthalidone, metoprolol. Monitor blood pressure and continue spironolactone. 4. Dyslipidemia. Continue statin. 5. Diabetes. Insulin as per protocol. Metformin as ordered. 6. Polycystic ovarian syndrome. Metformin, Aldactone. 7. Leukocytosis. Patient afebrile. Will monitor clinically. 2/2 to steroid, cultures sent and negative 8. Hypokalemia: con't to monitor VS, I&O, 24H, Fishbone Vital Signs/I&O Vital Signs Date Time Temp Pulse Resp B/P (MAP) Pulse Ox O2 Delivery O2 Flow Rate FiO2 05/25/18 14:00 97.2 110 17 125/78 (94) 95 I&O- Last 24 Hours up to 6 AM 05/25/18 06:00 Intake Total 2040 ml Output Total 3300 ml Balance -1260 ml Laboratory Data 24H LABS Laboratory Tests 2 05/24/18 16:37: Bedside Glucose (Misc Panel) 202H 05/24/18 20:10: Bedside Glucose (Misc Panel) 114H 05/25/18 06:44: White Blood Count 11.7H, Red Blood Count 4.35, Hemoglobin 12.6, Hematocrit 37.7, Mean Corpuscular Volume 86.7, Mean Corpuscular Hemoglobin 29.0, Mean Corpuscular Hemoglobin Concent 33.4, Red Cell Distribution Width 12.1, Platelet Count 378, Lymphocytes # (Auto) , Nucleated Red Blood Cells % (auto) 0.0, Neutrophils 54, Lymphocytes (Manual) 36, Monocytes (Manual) 8, Basophils (Manual) 2, Platelet Estimate NORMAL, Red Blood Cell Morphology NORMAL, Anion Gap 6L, Glomerular Filtration Rate > 60.0, Blood Urea Nitrogen 29H, Creatinine 1.00, Sodium Level 136, Potassium Level 3.3L, Chloride Level 97L, Carbon Dioxide Level 33H, Calcium Level 9.6, Magnesium Level 1.9 05/25/18 11:53: Bedside Glucose (Misc Panel) 125H CBC/BMP Laboratory Tests 05/25/18 06:44 Red Blood Count 4.35, Mean Corpuscular Volume 86.7, Mean Corpuscular Hemoglobin 29.0, Mean Corpuscular Hemoglobin Concent 33.4, Red Cell Distribution Width 12.1, Lymphocytes # (Auto) , Calcium Level 9.6 Microbiology Microbiology 05/21/18 Blood Culture - Preliminary, Resulted No Growth after 72 hours. All specime... 05/21/18 Blood Culture - Preliminary, Resulted No Growth after 72 hours. All specime... 05/22/18 Urine Culture - Final, Complete Escherichia Coli Lactobacillus Species CIELO CARBALLO MD May 25, 2018 16:27
[2018-05-25 20:00] VITALS: BP 119/77
[2018-05-25] MEDS: SIMVASTATIN 20 MG TAB PO SCH (21:24)
[2018-05-25] MEDS: MICONAZOLE-7 VAGINAL 2% CREAM 47.7 GM PV SCH (21:25)
[2018-05-26] MEDS: HEPARIN SOD (PORCINE) 5000 UNITS/ML VIAL SQ SCH ×3 (05:22→20:55)
[2018-05-26 06:00] VITALS: BP 132/86
[2018-05-26] MEDS: CHLORTHALIDONE 25 MG TAB PO SCH (09:13)
[2018-05-26] MEDS: GABAPENTIN 300 MG CAP PO SCH ×3 (09:13→20:56)
[2018-05-26] MEDS: predniSONE 10 MG TAB PO SCH (09:13)
[2018-05-26] MEDS: METOPROLOL SUCC *XL* 25MG TAB (TopROL *XL*) PO SCH (09:14)
[2018-05-26] MEDS: POTASSIUM CHLORIDE 10 MEQ SR TABLET PO SCH (09:14)
[2018-05-26] MEDS: metFORMIN (GLUCOPHAGE) 1000 MG TABLET PO SCH ×2 (09:14→18:03)
[2018-05-26] MEDS: HumaLOG INSULIN (NovoLOG) PER UNIT SC SCH ×4 (09:15→20:56)
[2018-05-26] MEDS: SPIRONOLACTONE 25 MG TAB PO SCH ×2 (09:15→20:56)
[2018-05-26] MEDS: NITROFURANTOIN (MACROBID) 100 MG CAP PO SCH ×2 (09:15→20:55)
[2018-05-26] MEDS: SENOKOT S TAB PO SCH ×2 (09:15→20:55)
[2018-05-26] MEDS: **NOTE PATIENT COMMENT** MISC XX SCH ×2 (09:16→20:59)
[2018-05-26] MEDS: LIDOCAINE 5% (LIDODERM) PATCH TD SCH ×2 (09:16→20:55)
[2018-05-26] MEDS: BOUDREAUX'S BUTT PASTE 4OZ TOP SCH ×3 (09:16→20:58)
[2018-05-26] MEDS ORDERED: PROHANCE 279.3MG/ML 15ML VIAL (A9576) As Ordered ONE (11:09)
[2018-05-26] MEDS ORDERED: PROHANCE 279.3MG/ML 5ML VIAL (A9576) As Ordered ONE (11:09)
--- NOTE | 2018-05-26 12:30 | IPNPDOC ---
Date Seen The patient was seen on 05/26/18. Progress Note SUBJECTIVE: Patient reports no improvement in urinary symptoms, tells me that she is completely unable to void urine on her own now, whereas several days earlier she was able to somewhat, but not completely empty at that time. OBJECTIVE PHYSICAL EXAMINATION: VITAL SIGNS: Please see below. GENERAL: obese female appears older than stated age sitting in street clothes in a chair no acute distress HEENT: Hirsutism she is wearing glasses cranial nerves grossly intact CARDIOVASCULAR: S1-S2 regular. RESPIRATORY: Clear to auscultation bilaterally. ABDOMINAL: Morbidly obese bowel sounds present abdomen is soft, no suprapubic mass EXTREMITIES: Somewhat wasted no clubbing cyanosis or edema NEUROLOGICAL: Unchanged from previously documented exams LABORATORY DATA, IMAGING STUDIES, MICROBIOLOGY: Please see below. DVT prophylaxis ordered?: Heparin ASSESSMENT AND PLAN: This is a 22-year-old female with cauda equina syndrome status post decompressive laminectomy and discectomy 1. L3 to L5 decompressive laminectomy with L4-L5 and L5-S1 discectomy secondary to spinal stenosis and cauda equina. Management of her neurosurgery at [facility]. Followup with Dr. Lockett. Management as per Dr. Teresa as well. Physical therapy (PT)/occupational therapy (OT). Doing quite well at this time 2. Urinary retention. As outlined above she was previously able to make some urine but now not able to make any urine at all. She is completely catheter dependent at this time this she has no other paresthesias weaknesses bowel incontinence or change in her clinical status however this is mildly concerning to better elucidate the nature of her urinary retention I will recheck an MRI of her lumbosacral spine to ensure no redevelopment of cauda equina and follow-up the results closely today. 3. Hypertension. Continue chlorthalidone, metoprolol. Monitor blood pressure and continue spironolactone. 4. Dyslipidemia. Continue statin. 5. Diabetes. Insulin as per protocol. Metformin as ordered. 6. Polycystic ovarian syndrome. Metformin, Aldactone. 7. Leukocytosis. Patient afebrile. Will monitor clinically. 2/2 to steroid, cultures sent and negative 8. Hypokalemia: con't to monitor VS, I&O, 24H, Fishbone Vital Signs/I&O Vital Signs Date Time Temp Pulse Resp B/P (MAP) Pulse Ox O2 Delivery O2 Flow Rate FiO2 05/26/18 09:14 84 132/86 05/26/18 06:00 97.0 18 96 I&O- Last 24 Hours up to 6 AM 05/26/18 06:00 Intake Total 1690 ml Output Total 1400 ml Balance 290 ml Laboratory Data 24H LABS Laboratory Tests 2 05/25/18 16:28: Bedside Glucose (Misc Panel) 254H 05/25/18 20:00: Bedside Glucose (Misc Panel) 149H 05/26/18 06:45: Bedside Glucose (Misc Panel) 127H 05/26/18 11:51: Bedside Glucose (Misc Panel) 164H Microbiology Microbiology 05/21/18 Blood Culture - Final, Complete NO GROWTH AFTER 5 DAYS 05/21/18 Blood Culture - Final, Complete NO GROWTH AFTER 5 DAYS 05/22/18 Urine Culture - Final, Complete Escherichia Coli Lactobacillus Species CIELO CARBALLO MD May 26, 2018 12:30
[2018-05-26 14:00] VITALS: BP 139/74
--- NOTE | 2018-05-26 18:10 | REPVR ---
EXAM: MR Lumbar Spine Without and With Contrast. EXAM DATE/TIME: 05/26/2018 11:38 AM CLINICAL HISTORY: 22 years old, female; Signs and symptoms; Other: Inability to urinate; Additional info: Cauda equino, inability to urinary, recent decompresion/loco TECHNIQUE: Imaging protocol: Multiplanar magnetic resonance images of the lumbar spine without and with intravenous contrast. Contrast material: PROHANCE Contrast volume: 20 ml Contrast route: IV COMPARISON: No relevant prior studies available. FINDINGS: Vertebrae: Normal alignment. No marrow space signal abnormalities. L1-L2: No significant disc disease. No stenosis. L2-L3: No significant disc disease. No stenosis. L3-L4: Diffuse annular bulge at L3-4 with an inferiorly extruded right paracentral disc herniation extending 7 millimeters below the superior endplate of L4 resulting in mild asymmetric compression of the right side of the thecal sac area there is mild impingement on the traversing nerve roots in the right side of the thecal sac. Status post bilateral laminectomy. Clumping of nerve roots may indicate arachnoiditis. Bilateral facet arthropathy. Both lateral recesses, right greater than left, are narrowed by the herniated disc. L4-L5: Bulging annulus at L4-5 with large disc herniation extending 3 millimeters superior to the inferior endplate of L4 and 8 millimeters inferior to the superior endplate of L5. There is mild impingement on the thecal sac and crowding of the nerve roots which may indicate the presence of arachnoiditis. There has been decompressive surgery posteriorly status post bilateral laminectomies. There is bilateral facet joint arthropathy. There is marked narrowing of the right lateral recess and moderate to severe narrowing of the left lateral recess secondary to large disc herniation. Mild bilateral foraminal stenosis. L5-S1: Bulging annulus at L5-S1 with a large central disc herniation extending 9 millimeters superior to the inferior endplate of L5 and 2-3 millimeters inferior to the superior endplate of S1. There is mild impingement on the thecal sac. Bilateral facet arthropathy demonstrated. No lateral recess stenosis. Moderate foraminal stenosis on the right and mild foraminal stenosis on the left. Spinal cord: Intrinsically unremarkable. Possible arachnoiditis at L4-5. Soft tissues: Postsurgical changes demonstrated in the posterior paraspinal soft tissues. Otherwise unremarkable. IMPRESSION: 1. Bulging annulus at L3-4 with inferiorly extruded right paracentral disc herniation with mild impingement of the traversing nerve roots on the right side, status post bilateral laminectomy. Marked narrowing of both lateral recesses, right greater than left. 2. Bulging annulus at L4-5 and superiorly and inferiorly extruded disc herniation. A decompressive bilateral laminectomy is demonstrated. Marked bilateral lateral recess narrowing. 3. Bulging annulus at L5-S1 with large central disc herniation extending superiorly and inferiorly with mild impingement on the thecal sac. 4. Clumping of nerve roots at L3 and L4 may indicate arachnoiditis. Electronically signed by: Irving Bailey On 05/26/2018 18:10:15 PM
[2018-05-26 20:00] VITALS: BP 132/71
[2018-05-26] MEDS: SIMVASTATIN 20 MG TAB PO SCH (20:55)
[2018-05-26] MEDS: MICONAZOLE-7 VAGINAL 2% CREAM 47.7 GM PV SCH (20:57)
[2018-05-27] MEDS: HEPARIN SOD (PORCINE) 5000 UNITS/ML VIAL SQ SCH ×3 (05:24→21:59)
[2018-05-27 06:00] VITALS: BP 135/91
[2018-05-27] MEDS: HumaLOG INSULIN (NovoLOG) PER UNIT SC SCH ×4 (07:47→21:00)
[2018-05-27] MEDS: metFORMIN (GLUCOPHAGE) 1000 MG TABLET PO SCH ×2 (09:21→18:34)
[2018-05-27] MEDS: SENOKOT S TAB PO SCH ×2 (09:21→21:59)
[2018-05-27] MEDS: CHLORTHALIDONE 25 MG TAB PO SCH (09:21)
[2018-05-27] MEDS: SPIRONOLACTONE 25 MG TAB PO SCH ×2 (09:21→21:59)
[2018-05-27] MEDS: METOPROLOL SUCC *XL* 25MG TAB (TopROL *XL*) PO SCH (09:21)
[2018-05-27] MEDS: GABAPENTIN 300 MG CAP PO SCH ×3 (09:21→21:59)
[2018-05-27] MEDS: NITROFURANTOIN (MACROBID) 100 MG CAP PO SCH ×2 (09:22→21:59)
[2018-05-27] MEDS: **NOTE PATIENT COMMENT** MISC XX SCH (09:22)
[2018-05-27] MEDS: predniSONE 10 MG TAB PO SCH (09:22)
[2018-05-27] MEDS: POTASSIUM CHLORIDE 10 MEQ SR TABLET PO SCH (09:22)
[2018-05-27] MEDS: BOUDREAUX'S BUTT PASTE 4OZ TOP SCH ×3 (09:23→21:00)
[2018-05-27] MEDS: LIDOCAINE 5% (LIDODERM) PATCH TD SCH ×3 (09:24→21:59)
[2018-05-27 14:00] VITALS: BP 142/98
[2018-05-27] MEDS: ACETAMINOPHEN TAB 650MG DOSE (2X325MG) PO PRN (16:30)
--- NOTE | 2018-05-27 16:55 | IPNPDOC ---
Date Seen The patient was seen on 05/27/18. Progress Note SUBJECTIVE: Patient reports no changes in urinary habits, no saddle paresthesias or weakness no burning sensations no changes in her bowel habits or incontinence OBJECTIVE PHYSICAL EXAMINATION: VITAL SIGNS: Please see below. GENERAL: obese female appears older than stated age sitting in street clothes working with physical therapy HEENT: Hirsutism she is wearing glasses cranial nerves grossly intact CARDIOVASCULAR: S1-S2 regular. RESPIRATORY: Clear to auscultation bilaterally. ABDOMINAL: Morbidly obese bowel sounds present abdomen is soft, no suprapubic mass EXTREMITIES: Somewhat wasted no clubbing cyanosis or edema NEUROLOGICAL: Unchanged from previously documented exams LABORATORY DATA, IMAGING STUDIES, MICROBIOLOGY: Please see below. DVT prophylaxis ordered?: Heparin ASSESSMENT AND PLAN: This is a 22-year-old female with cauda equina syndrome status post decompressive laminectomy and discectomy 1. L3 to L5 decompressive laminectomy with L4-L5 and L5-S1 discectomy secondary to spinal stenosis and cauda equina. Management of her neurosurgery at [facility]. Followup with Dr. Lockett. Management as per Dr. Teresa as well. Physical therapy (PT)/occupational therapy (OT). Doing quite well at this time 2. Urinary retention. I did recheck an MRI yesterday given that she was unable to void all I did discuss the findings with [facility] neurosurgery they did not feel as though they were significantly concerning given the lack of other findings or symptoms. I do agree with him my suspicion is that she was having overflow incontinence previously and now that we are intermittently catheterizing her she's not having the flow she was previously as opposed to this being a new neurologic finding deficits. We mutually agreed to monitor for this time being should she have worsening of her symptoms or development of new symptoms would consider transfer sooner however at this time we will have her follow-up outpatient with her neurosurgeon 3. Hypertension. Continue chlorthalidone, metoprolol. Monitor blood pressure and continue spironolactone. 4. Dyslipidemia. Continue statin. 5. Diabetes. Insulin as per protocol. Metformin as ordered. 6. Polycystic ovarian syndrome. Metformin, Aldactone. 7. Leukocytosis. Patient afebrile. Will monitor clinically. 2/2 to steroid, will recheck tomorrow 8. Hypokalemia: We'll recheck tomorrow VS, I&O, 24H, Fishbone Vital Signs/I&O Vital Signs Date Time Temp Pulse Resp B/P (MAP) Pulse Ox O2 Delivery O2 Flow Rate FiO2 05/27/18 14:00 97.4 92 16 142/98 (113) 98 I&O- Last 24 Hours up to 6 AM 05/27/18 06:00 Intake Total 1200 ml Output Total 1675 ml Balance -475 ml Laboratory Data 24H LABS Laboratory Tests 2 05/26/18 20:07: Bedside Glucose (Misc Panel) 236H 05/27/18 05:38: Bedside Glucose (Misc Panel) 142H 05/27/18 12:14: Bedside Glucose (Misc Panel) 172H 05/27/18 16:29: Bedside Glucose (Misc Panel) 208H Microbiology Microbiology 05/21/18 Blood Culture - Final, Complete NO GROWTH AFTER 5 DAYS 05/21/18 Blood Culture - Final, Complete NO GROWTH AFTER 5 DAYS 05/22/18 Urine Culture - Final, Complete Escherichia Coli Lactobacillus Species CIELO CARBALLO MD May 27, 2018 16:55
[2018-05-27 20:00] VITALS: BP 135/90
[2018-05-27] MEDS: MICONAZOLE-7 VAGINAL 2% CREAM 47.7 GM PV SCH (21:58)
[2018-05-27] MEDS: SIMVASTATIN 20 MG TAB PO SCH (21:59)
[2018-05-28] MEDS: HEPARIN SOD (PORCINE) 5000 UNITS/ML VIAL SQ SCH ×3 (05:52→22:05)
[2018-05-28 06:00] VITALS: BP 121/73
[2018-05-28 06:29] LABS: HEMATOCRIT 39.7 % (36.0-47.0); HEMOGLOBIN 13.1 g/dl (12.0-15.5); MEAN CORPUSCULAR HEMOGLOBIN 29.2 pg (27.0-33.0); MEAN CORPUSCULAR VOLUME 88.6 fl (80.0-96.0); PLATELET COUNT, AUTOMATED 352 10^3/uL (150-450); RED BLOOD COUNT 4.48 10^6/uL (4.00-5.40); WHITE BLOOD COUNT 14.2 10^3/uL (4.0-10.0)
[2018-05-28 07:08] LABS: BLOOD UREA NITROGEN 23 MG/DL (7-18); CALCIUM LEVEL 9.3 MG/DL (8.5-10.1); CARBON DIOXIDE LEVEL 28 MEQ/L (21-32); CHLORIDE LEVEL 101 MEQ/L (98-107); CREATININE FOR GFR 0.98 MG/DL (0.55-1.30); GLOMERULAR FILTRATION RATE > 60.0 (>60); GLUCOSE, FASTING 114 MG/DL (70-100); POTASSIUM SERUM 3.9 MEQ/L (3.5-5.1); SODIUM LEVEL 137 MEQ/L (136-145)
[2018-05-28] MEDS: HumaLOG INSULIN (NovoLOG) PER UNIT SC SCH ×4 (08:59→21:00)
[2018-05-28] MEDS: METOPROLOL SUCC *XL* 25MG TAB (TopROL *XL*) PO SCH (09:00)
[2018-05-28] MEDS: predniSONE 10 MG TAB PO SCH (09:00)
[2018-05-28] MEDS: CHLORTHALIDONE 25 MG TAB PO SCH (09:00)
[2018-05-28] MEDS: BOUDREAUX'S BUTT PASTE 4OZ TOP SCH ×3 (09:00→21:00)
[2018-05-28] MEDS: NITROFURANTOIN (MACROBID) 100 MG CAP PO SCH ×2 (09:00→22:05)
[2018-05-28] MEDS: metFORMIN (GLUCOPHAGE) 1000 MG TABLET PO SCH ×2 (09:00→17:32)
[2018-05-28] MEDS: GABAPENTIN 300 MG CAP PO SCH ×3 (09:00→22:05)
[2018-05-28] MEDS: SPIRONOLACTONE 25 MG TAB PO SCH ×2 (09:00→22:05)
[2018-05-28] MEDS: SENOKOT S TAB PO SCH ×2 (09:00→22:05)
[2018-05-28] MEDS: POTASSIUM CHLORIDE 10 MEQ SR TABLET PO SCH (09:01)
[2018-05-28] MEDS: **NOTE PATIENT COMMENT** MISC XX SCH ×2 (09:02)
[2018-05-28 14:00] VITALS: BP 139/89
--- NOTE | 2018-05-28 14:45 | IPNPDOC ---
Date Seen The patient was seen on 05/28/18. Progress Note SUBJECTIVE: Patient reports no changes she is feeling well. No new symptoms OBJECTIVE PHYSICAL EXAMINATION: VITAL SIGNS: Please see below. GENERAL: obese female appears older than stated age sitting in street clothes nad HEENT: Hirsutism she is wearing glasses cranial nerves grossly intact CARDIOVASCULAR: S1-S2 regular. RESPIRATORY: Clear to auscultation bilaterally. ABDOMINAL: Morbidly obese bowel sounds present abdomen is soft, no suprapubic mass EXTREMITIES: Somewhat wasted no clubbing or edema NEUROLOGICAL: Unchanged from previously documented exams LABORATORY DATA, IMAGING STUDIES, MICROBIOLOGY: Please see below. DVT prophylaxis ordered?: Heparin ASSESSMENT AND PLAN: This is a 22-year-old female with cauda equina syndrome status post decompressive laminectomy and discectomy 1. L3 to L5 decompressive laminectomy with L4-L5 and L5-S1 discectomy secondary to spinal stenosis and cauda equina. Management of her neurosurgery at [facility]. Followup with Dr. Lockett. Management as per Dr. Teresa as well. Physical therapy (PT)/occupational therapy (OT). Doing quite well at this time 2. Urinary retention. I did recheck an MRI yesterday given that she was unable to void all I did discuss the findings with [facility] neurosurgery they did not feel as though they were significantly concerning given the lack of other findings or symptoms. I do agree with him my suspicion is that she was having overflow incontinence previously and now that we are intermittently catheterizing her she's not having the flow she was previously as opposed to this being a new neurologic finding deficits. We mutually agreed to monitor for this time being should she have worsening of her symptoms or development of new symptoms would consider transfer sooner however at this time we will have her follow-up outpatient with her neurosurgeon. She has been stable 3. Hypertension. Continue chlorthalidone, metoprolol. Monitor blood pressure and continue spironolactone. 4. Dyslipidemia. Continue statin. 5. Diabetes. Insulin as per protocol. Metformin as ordered. 6. Polycystic ovarian syndrome. Metformin, Aldactone. 7. Leukocytosis. Patient afebrile. Will monitor clinically. 2/2 to steroid, will recheck tomorrow 8. Hypokalemia: resolved with repletion 9. DVT PPx: Heparin order renewed VS, I&O, 24H, Fishbone Vital Signs/I&O Vital Signs Date Time Temp Pulse Resp B/P (MAP) Pulse Ox O2 Delivery O2 Flow Rate FiO2 05/28/18 09:00 80 124/78 05/28/18 06:00 97.0 18 97 I&O- Last 24 Hours up to 6 AM 05/28/18 06:00 Intake Total 720 ml Output Total 1500 ml Balance -780 ml Laboratory Data 24H LABS Laboratory Tests 2 05/27/18 16:29: Bedside Glucose (Misc Panel) 208H 05/27/18 20:01: Bedside Glucose (Misc Panel) 132H 05/28/18 06:16: Nucleated Red Blood Cells % (auto) 0.0, Anion Gap 8, Glomerular Filtration Rate > 60.0, Blood Urea Nitrogen 23H, Creatinine 0.98, Sodium Level 137, Potassium Level 3.9, Chloride Level 101, Carbon Dioxide Level 28, Calcium Level 9.3 05/28/18 11:50: Bedside Glucose (Misc Panel) 139H CBC/BMP Laboratory Tests 05/28/18 06:16 Red Blood Count 4.48, Mean Corpuscular Volume 88.6, Mean Corpuscular Hemoglobin 29.2, Mean Corpuscular Hemoglobin Concent 33.0, Red Cell Distribution Width 12.3, Calcium Level 9.3 Microbiology Microbiology 05/21/18 Blood Culture - Final, Complete NO GROWTH AFTER 5 DAYS 05/21/18 Blood Culture - Final, Complete NO GROWTH AFTER 5 DAYS 05/22/18 Urine Culture - Final, Complete Escherichia Coli Lactobacillus Species CIELO CARBALLO MD May 28, 2018 14:45
[2018-05-28 20:00] VITALS: BP 124/79
--- NOTE | 2018-05-28 20:13 | IPNPDOC ---
PM&R Progress Note DATE OF SERVICE: May 28, 2018 Visual Effects Editor Progress Note Subjective: Patient reports her right lateral hip pain has improved with the Lidoderm patch and that she is progressing in therapy. She is able to void better, but still requiring to slef-cath. REVIEW OF SYSTEMS: The following is a completed review of systems and has been reviewed. Review of systems otherwise unremarkable. PAIN: Patient self reports no pain EYES: Negative for recent vision changes EARS, NOSE, & THROAT:denies throat or ear pain, no dysphagia CARDIOVASCULAR: denies chest pain or palpitations PULMONARY: Negative. Denies shortness of breath GASTROINTESTINAL: +fecal incontinence (improving) GENITOURINARY: +urinary retention (improving) MUSCULOSKELETAL: bilateral LE weakness NEUROLOGICAL: +cauda equina HEMATOLOGICAL: Negative SKIN: +sacral pressure ulcer, laminectomy incision PSYCHIATRIC: Unremarkable All other review of systems found to be negative. PHYSICAL EXAMINATION: VITAL SIGNS: Please see below. GENERAL: Pleasant and cooperative. No acute distress. HEENT: PERRL. Extraocular movements intact. Clear conjunctiva CARDIOVASCULAR: Regular rate and rhythm. No murmurs, rubs, or gallops LUNGS: Clear to auscultation bilaterally. No wheezes. No rhonchi ABDOMEN: Soft, nontender, nondistended. Positive bowel sounds. Normal active bowel sounds NEUROLOGICAL: Alert and oriented times three. Cranial nerves II through XII grossly intact. EXTREMITIES: 5\5 strength bilateral upper extremities. 4/5 bilateral hip flexors, 4/5 bilat knee extensors, 3/5 left ankle DF (lacking L5 contribution and unable to activate peroneus longus/brevis) 1/5 EHL, 3/5 ankle PF on left 0/5 right ankle DF or EHL, 2/5 ankle PF Sensation diminished to light touch right L4-S2 dermatomes, otherwise intact to light touch in all 4 limbs (-) Babinski bilat, (-) clonus Skin: incision c/d/i with mild erythema, non tender to palpation, no induration -sacrum with erythema -right greater trochanter TTP, no swelling or erythema ASSESSMENT:22-year-old F with past medical history of PCOS and HTN who presents status post cauda equina syndrome: PLAN: 1. Rehab: PT/OT and assess for DME-Multipodus boots while in bed to stretch heel cords, able to ambulate further with RW, will need AFOs for bilateral foot drop, given she has sensory deficits she will need Custom-braces to prevent further deformity and protect her from skin breakdown, she will need these AFOs for greater than 6 months-she is currently ambulating short distances and predicted to be a community ambulator, consult placed -room privileges from wheelchair level, will aim to advance to room privileges with RW once cleared by OT 2. Neuro: cauda equina syndrome s/p L3-L5 decompressive laminectomy with L4/L5 and L5/S1 discectomies performed 05/06/18, conus medullaris at L2 level-unclear at this time if spinal cord was affected in the setting of post-op edema, however initial imaging did not show cord signal abnormalities at L2 level -avoid NSAIDs, heavy lifting, and f/u with neurosurgery on 06/01/18 3. Cardio:pmg HTN and HLD-c/u increased Spironolactone for elevated BPs in setting of mild hsbazfgvfjg-hvrisyenm-jzcdcjdd consulted and recs appreciated 4. Endo: pmh PCOS and DM c/u increased dose of spironolactone, metformin, and insulin coverage 5. Pain: oxycodone prn, gabapentin for neuropathic pain 6. : admission UA and Ucx negative, s/p Guerra removal, c/u times void and bladder scan/PVRs, s/p 1x dose Diflucan for discharge- initially was voiding, now retaining, repeat Uxc +E. Coli c/u macrobid x 7days total 7. GI ppx: Protonix, optimize bowel regimen, KUB +small amount of fecal retention, c/u bowel meds 8. DVT ppx: heparin, dopplers negative 9. SKin: turn q2, barrier cream to sacrum BID plus optifoam, silver Optifoam to lumbar incision- sutures to be removed 06/01/18 10. Hypokalmeia- persistent borderline low potassium, c/u daily 20meq-stable 10. DIspo: 05/31/18, to home-progressing towards goals Allergies Coded Allergies: Penicillins (Verified Allergy, Intermediate, hives, 05/16/18) Vital Signs Vital Signs Date Time Temp Pulse Resp B/P (MAP) Pulse Ox O2 Delivery O2 Flow Rate FiO2 05/28/18 14:00 96.7 114 18 139/89 (106) 95 Laboratory Data CBC/BMP Laboratory Tests 05/28/18 06:16 Red Blood Count 4.48, Mean Corpuscular Volume 88.6, Mean Corpuscular Hemoglobin 29.2, Mean Corpuscular Hemoglobin Concent 33.0, Red Cell Distribution Width 12.3, Calcium Level 9.3 Labs 24H Laboratory Tests 2 05/28/18 06:16: Nucleated Red Blood Cells % (auto) 0.0, Anion Gap 8, Glomerular Filtration Rate > 60.0, Blood Urea Nitrogen 23H, Creatinine 0.98, Sodium Level 137, Potassium Level 3.9, Chloride Level 101, Carbon Dioxide Level 28, Calcium Level 9.3 05/28/18 11:50: Bedside Glucose (Misc Panel) 139H 05/28/18 17:07: Bedside Glucose (Misc Panel) 184H 05/28/18 20:10: Bedside Glucose (Misc Panel) 98 Microbiology Microbiology 05/21/18 Blood Culture - Final, Complete NO GROWTH AFTER 5 DAYS 05/21/18 Blood Culture - Final, Complete NO GROWTH AFTER 5 DAYS 05/22/18 Urine Culture - Final, Complete Escherichia Coli Lactobacillus Species Current Medications Current Medications Current Medications Acetaminophen (Tylenol Tab) 650 mg Q4HP PRN PO fever/MILD PAIN (PS 1-4) Last administered on 05/27/18at 16:30; Start 05/10/18 at 19:15 Chlorthalidone (Hygroton) 25 mg DAILY PO Last administered on 05/28/18at 09:00; Start 05/11/18 at 09:00 Dextrose (Dextrose 50%) 25 ml ASDIRECTED PRN IV SEE LABEL COMMENTS; Start 05/10/18 at 19:15 Diazepam (Valium) 5 mg Q8HP PRN PO ANXIETY; Start 05/10/18 at 19:15; Stop 05/16/18 at 18:08; Status DC Docusate Sodium (Colace) 100 mg TID PO Last administered on 05/20/18at 08:45; Start 05/10/18 at 21:00; Stop 05/20/18 at 10:43; Status DC Gabapentin (Neurontin) 300 mg TID PO Last administered on 05/28/18at 16:10; Start 05/10/18 at 21:00 Glucagon (Glucagon) 1 mg ASDIRECTED PRN SC SEE LABEL COMMENTS; Start 05/10/18 at 19:15 Glucose (Glucose) 16 GM ASDIRECTED PRN PO SEE LABEL COMMENTS; Start 05/10/18 at 19:15 Heparin Sodium (Porcine) (Heparin) 5,000 units Q8H SQ Last administered on 05/28/18at 16:13; Start 05/10/18 at 22:00 Home Med (Med Rec Complete!) ASDIRECTED XX ; Start 05/10/18 at 20:30; Stop 05/10/18 at 20:30; Status DC Insulin Human Lispro (HumaLOG INSULIN) SEE PROTOCOL TABLE AC SC Last administered on 05/28/18at 17:32; Start 05/11/18 at 07:30 Insulin Human Lispro (HumaLOG INSULIN) SEE PROTOCOL TABLE QHS SC ; Start 05/10/18 at 21:00 Lidocaine (Lidoderm Patch) 1 patch DAILY TD Last administered on 05/22/18at 08:37; Start 05/21/18 at 09:00; Stop 05/22/18 at 14:52; Status DC Lidocaine (Lidoderm Patch) 1 patch DAILY TD ; Start 05/24/18 at 13:15; Stop 05/27/18 at 11:36; Status DC Lidocaine (Lidoderm Patch) 1 patch QHS TD Last administered on 05/27/18at 21:59; Start 05/22/18 at 21:00 Lidocaine (Lidoderm Patch) 1 patch QHS TD ; Start 05/27/18 at 21:00 Metformin HCl (Glucophage) 1,000 mg BID@08,18 PO Last administered on 05/28/18at 17:32; Start 05/11/18 at 08:00 Metoclopramide HCl (Reglan) 5 mg Q6HP PRN PO NAUSEA OR VOMITING Last administered on 05/20/18at 10:50; Start 05/20/18 at 10:45 Metoprolol Succinate (TopROL XL) 25 mg DAILY PO Last administered on 05/28/18at 09:00; Start 05/11/18 at 09:00 Miconazole Nitrate (Monistat-7) 1 APPLICATORFUL VAGINALL... QHS PV ; Start 05/16/18 at 18:00; Stop 05/16/18 at 18:16; Status DC Miconazole Nitrate (Monistat-7) 1 dose QHS PV Last administered on 05/27/18at 21:58; Start 05/18/18 at 21:00; Stop 05/28/18 at 23:00 Miscellaneous (Unresolved Clarification Entry) SEE LABEL COMMENTS DAILY XX Last administered on 05/28/18at 09:00; Start 05/28/18 at 09:00; Stop 05/28/18 at 09:46; Status DC Nitrofurantoin Monoh/Nitrofur Macro (Macrobid) 100 mg BID PO ; Start 05/24/18 at 09:00; Stop 05/24/18 at 20:51; Status DC Nitrofurantoin Monoh/Nitrofur Macro (Macrobid) 100 mg BID PO Last administered on 05/28/18 09:00; Start 05/24/18 at 13:00; Stop 05/30/18 at 12:59 Non-Formulary Medication ( See Comment Field Below ) REMOVE LIDODERM PATCH DAILY@21 XX Last administered on 05/21/18at 21:46; Start 05/21/18 at 21:00; Stop 05/22/18 at 14:53; Status DC Non-Formulary Medication ( See Comment Field Below ) REMOVE LIDODERM PATCH D AILY@21 XX Last administered on 05/24/18at 21:10; Start 05/24/18 at 21:00; Stop 05/27/18 at 11:37; Status DC Non-Formulary Medication ( See Comment Field Below ) REMOVE LIDODERM PATCH F... DAILY XX Last administered on 05/28/18 09:02; Start 05/28/18 at 09:00 Non-Formulary Medication ( See Comment Field Below ) REMOVE LIDODERM PATCH F... DAILY@0900 XX Last administered on 05/28/18at 09:02; Start 05/23/18 at 09:00 Ondansetron HCl (Zofran) 4 mg Q6HP PRN PO NAUSEA OR VOMITING Last administered on 05/20/18at 09:05; Start 05/20/18 at 08:45 Oxycodone HCl (Roxicodone, Oxyir) 5 mg Q4HP PRN PO PAIN Last administered on 05/11/18at 15:27; Start 05/10/18 at 19:15; Stop 05/16/18 at 18:08; Status DC Polyethylene Glycol (Miralax) 1 pkt DAILYPRN PRN PO CONSTIPATION Last administered on 05/22/18 08:38; Start 05/14/18 at 13:30 Potassium Chloride (Micro-K Extencaps) 20 meq DAILY PO Last administered on 05/28/18 09:01; Start 05/23/18 at 10:00 Prednisone (Deltasone) 10 mg DAILY PO Last administered on 05/28/18 09:00; Start 05/11/18 at 09:00 Senna/Docusate Sodium (Senokot S) 1 tab BID PO Last administered on 05/28/18 09:00; Start 05/20/18 at 21:00 Simvastatin (Zocor) 20 mg QHS PO Last administered on 05/27/18 21:59; Start 05/10/18 at 21:00 Spironolactone (Aldactone) 25 mg BID PO Last administered on 05/28/18 09:00; Start 05/15/18 at 21:00 Spironolactone (Aldactone) 25 mg QAM PO Last administered on 05/15/18 08:21; Start 05/11/18 at 09:00; Stop 05/15/18 at 18:47; Status DC Zinc Oxide (Boudreauxs Butt Paste) APPLY TO AFFECTED AREA TID TOP Last administered on 05/28/18 16:10; Start 05/10/18 at 21:00 BRITTNY DODGE MD May 28, 2018 20:13
[2018-05-28] MEDS: LIDOCAINE 5% (LIDODERM) PATCH TD SCH ×2 (21:00→22:05)
[2018-05-28] MEDS: SIMVASTATIN 20 MG TAB PO SCH (22:05)
[2018-05-28] MEDS: MICONAZOLE-7 VAGINAL 2% CREAM 47.7 GM PV SCH (22:06)
[2018-05-29 06:00] VITALS: BP 130/84
[2018-05-29] MEDS: HEPARIN SOD (PORCINE) 5000 UNITS/ML VIAL SQ SCH ×3 (06:12→21:20)
[2018-05-29] MEDS: BOUDREAUX'S BUTT PASTE 4OZ TOP SCH ×3 (09:00→20:11)
[2018-05-29] MEDS: **NOTE PATIENT COMMENT** MISC XX SCH ×2 (09:00)
[2018-05-29] MEDS: metFORMIN (GLUCOPHAGE) 1000 MG TABLET PO SCH ×2 (09:05→17:53)
[2018-05-29] MEDS: predniSONE 10 MG TAB PO SCH (09:05)
[2018-05-29] MEDS: POTASSIUM CHLORIDE 10 MEQ SR TABLET PO SCH (09:05)
[2018-05-29] MEDS: GABAPENTIN 300 MG CAP PO SCH ×3 (09:05→20:10)
[2018-05-29] MEDS: METOPROLOL SUCC *XL* 25MG TAB (TopROL *XL*) PO SCH (09:05)
[2018-05-29] MEDS: NITROFURANTOIN (MACROBID) 100 MG CAP PO SCH ×2 (09:06→20:10)
[2018-05-29] MEDS: HumaLOG INSULIN (NovoLOG) PER UNIT SC SCH ×4 (09:06→20:02)
[2018-05-29] MEDS: CHLORTHALIDONE 25 MG TAB PO SCH (09:06)
[2018-05-29] MEDS: SPIRONOLACTONE 25 MG TAB PO SCH ×2 (09:06→20:10)
[2018-05-29] MEDS: SENOKOT S TAB PO SCH ×2 (09:06→20:02)
--- NOTE | 2018-05-29 11:42 | IPNPDOC ---
Text Note Date of Service The patient was seen on 05/29/18. NOTE Subjective: Patient is a 22-year-old female with a PMHx of HTN, DM2, DLP, PCOS, Obestiy who presented to [facility] emergency department on 05/06/18 with bilateral lower extremity weakness after bending forward and feeling a popping sensation a few days earlier. At first she felt pain and later developed weakness with urinary incontinence and saddle region anesthesia. Lumbar Spine MRI on 05/06/18 showed Disc protrusion with moderate canal stenosis is present at L3-L4 vertebral level.,disc protrusion with severe canal stenosis and compression of the cauda equine nerve roots is present at L4-L5 vertebral level. Disc bulging with moderate canal stenosis L5-S1. The pt was evaluated by Dr. Bazzi who performed a L3-L5 decompressive laminectomy with L4/L5 and L5/S1 discectomies without complications. The pt was transferred to the care of Dr Teresa, YFN, 05/10/18. Patient was seen and examined at the bedside. Currently, patient reports no new problems. Patient denies any nausea, vomiting, abdominal pain, constipation, diarrhea or discomfort with urination. Denies any chest pain, shortness breath or palpitations. Objective: Vitals (See below) General: Lying in bed, no acute distress, comfortable, AAOx3 HEENT: NC, AT, + Hirsutism CVS: RRR, +S1S2 Lungs: Fair air entry b/l, -w/r/r Abdomen: Soft, ND, NT, Obese Extremities: - Edema, - Calf tenderness Neuro: Unchanged Assessment and plan: L3-L5 decompressive laminectomy with L5-L5 and L5-S1 discectomy 2/2 spinal stenosis & cauda equina syndrome - Management as per neurosurgery at [facility]; will follow up with Dr. Lockett - Comanagement with Dr. Teresa - Physical therapy, occupational therapy and pain management as per ARU Urinary retention - MRI L Spine 05/26/18: 1. Bulging annulus at L3-4 with inferiorly extruded right paracentral disc herniation with mild impingement of the traversing nerve roots on the right side, status post bilateral laminectomy. Marked narrowing of both lateral recesses, right greater than left. 2. Bulging annulus at L4-5 and superiorly and inferiorly extruded disc herniation. A decompressive bilateral laminectomy is demonstrated. Marked bilateral lateral recess narrowing. 3. Bulging annulus at L5-S1 with large central disc herniation extending superiorly and inferiorly with mild impingement on the thecal sac. 4. Clumping of nerve roots at L3 and L4 may indicate arachnoiditis. - Findings were discussed with neurosurgery at [facility]; currently will f/u as an outpatient - Was suspected that given her previous history of overflow incontinence and the lack of flow, that she is having urinary retention, and less likely a new finding - If there are worsening symptoms will re-image / discuss with [facility] neur ology - Outpatient f/u with neurosurgery HTN - BP well controlled - c/w chlorthalidone, metoprolol, spironolactone DLP - c/w Simvastatin DM2 - c/w ISS and Metformin PCOS - c/w Spironolactone and Metformin Leukocytosis - likely 2/2 reactive etiology 2/2 corticosteroids - ROS with no signs of infection - Remain afebrile / hemodynamically stable - Will hold off on antibiotics s/p Hypokalemia DVT prophylaxis - c/w Heparin VS,Fishbone, I+O VS, Fishbone, I+O Vital Signs Date Time Temp Pulse Resp B/P (MAP) Pulse Ox O2 Delivery O2 Flow Rate FiO2 05/29/18 09:05 82 130/84 05/29/18 06:00 97.1 18 94 I&O- Last 24 Hours up to 6 AM 05/29/18 06:00 Intake Total 1400 ml Output Total 2150 ml Balance -750 ml REILLY SINHA MD May 29, 2018 11:42
[2018-05-29 14:00] VITALS: BP 140/84
--- NOTE | 2018-05-29 14:15 | IPNPDOC ---
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 REVIEW OF SYSTEMS: The following is a completed review of systems and has been reviewed. Review of systems otherwise unremarkable. PAIN: Patient self reports no pain EYES: Negative for recent vision changes EARS, NOSE, & THROAT:denies throat or ear pain, no dysphagia CARDIOVASCULAR: denies chest pain or palpitations PULMONARY: Negative. Denies shortness of breath GASTROINTESTINAL: +fecal incontinence (improving), +loose stools GENITOURINARY: +urinary retention (improving) MUSCULOSKELETAL: bilateral LE weakness NEUROLOGICAL: +cauda equina HEMATOLOGICAL: Negative SKIN: +sacral pressure ulcer, laminectomy incision PSYCHIATRIC: Unremarkable All other review of systems found to be negative. PHYSICAL EXAMINATION: VITAL SIGNS: Please see below. GENERAL: Pleasant and cooperative. No acute distress. HEENT: PERRL. Extraocular movements intact. Clear conjunctiva CARDIOVASCULAR: Regular rate and rhythm. No murmurs, rubs, or gallops LUNGS: Clear to auscultation bilaterally. No wheezes. No rhonchi ABDOMEN: Soft, nontender, nondistended. Positive bowel sounds. Normal active bowel sounds NEUROLOGICAL: Alert and oriented times three. Cranial nerves II through XII grossly intact. EXTREMITIES: 5\5 strength bilateral upper extremities. 4/5 bilateral hip flexors, 4/5 bilat knee extensors, 3/5 left ankle DF (lacking L5 contribution and unable to activate peroneus longus/brevis) 1/5 EHL, 3/5 ankle PF on left 0/5 right ankle DF or EHL, 2/5 ankle PF Sensation diminished to light touch right L4-S2 dermatomes, otherwise intact to light touch in all 4 limbs (-) Babinski bilat, (-) clonus absent patellar and ankle reflexes Skin: incision c/d/i with mild erythema, non tender to palpation, no induration -sacrum with erythema -right greater trochanter TTP, no swelling or erythema ASSESSMENT:22-year-old F with past medical history of PCOS and HTN who presents status post cauda equina syndrome: PLAN: 1. Rehab: PT/OT and assess for DME-Multipodus boots while in bed to stretch heel cords, able to ambulate further with RW, will need AFOs for bilateral foot drop, given she has sensory deficits she will need Custom-braces to prevent further deformity and protect her from skin breakdown, she will need these AFOs for greater than 6 months-she is currently ambulating short distances and predicted to be a community ambulator, consult placed -room privileges from wheelchair level, will aim to advance to room privileges with RW once cleared by OT 2. Neuro: cauda equina syndrome s/p L3-L5 decompressive laminectomy with L4/L5 and L5/S1 discectomies performed 05/06/18, conus medullaris at L2 level-unclear at this time if spinal cord was affected in the setting of post-op edema, stewart crabtree initial imaging did not show cord signal abnormalities at L2 level -avoid NSAIDs, heavy lifting, and f/u with neurosurgery on 06/01/18 3. Cardio:pmg HTN and HLD-c/u increased Spironolactone for elevated BPs in setting of mild bupartdjhqi-xutuklove-gvluceup consulted and recs appreciated 4. Endo: pmh PCOS and DM c/u increased dose of spironolactone, metformin, and insulin coverage 5. Pain: oxycodone prn, gabapentin for neuropathic pain 6. : admission UA and Ucx negative, s/p Guerra removal, c/u times void and bladder scan/PVRs, s/p 1x dose Diflucan for discharge- initially was voiding, now retaining, repeat Uxc +E. Coli c/u macrobid x 7days total 7. GI ppx: Protonix, optimize bowel regimen, KUB +small amount of fecal retention, c/u bowel meds-will order c diff for loose stools 8. DVT ppx: heparin, dopplers negative 9. SKin: turn q2, barrier cream to sacrum BID plus optifoam, silver Optifoam to lumbar incision- sutures to be removed 06/01/18 10. Hypokalmeia-resolved, c/u daily 20meq-stable 10. DIspo: 05/31/18, to home-progressing towards goals Allergies Coded Allergies: Penicillins (Verified Allergy, Intermediate, hives, 05/16/18) Vital Signs Vital Signs Date Time Temp Pulse Resp B/P (MAP) Pulse Ox O2 Delivery O2 Flow Rate FiO2 05/29/18 09:05 82 130/84 05/29/18 06:00 97.1 18 94 Laboratory Data Labs 24H Laboratory Tests 2 05/28/18 17:07: Bedside Glucose (Misc Panel) 184H 05/28/18 20:10: Bedside Glucose (Misc Panel) 98 05/29/18 06:51: Bedside Glucose (Misc Panel) 129H 05/29/18 11:42: Bedside Glucose (Misc Panel) 146H Microbiology Microbiology 05/21/18 Blood Culture - Final, Complete NO GROWTH AFTER 5 DAYS 05/21/18 Blood Culture - Final, Complete NO GROWTH AFTER 5 DAYS 05/22/18 Urine Culture - Final, Complete Escherichia Coli Lactobacillus Species Current Medications Current Medications Current Medications Acetaminophen (Tylenol Tab) 650 mg Q4HP PRN PO fever/MILD PAIN (PS 1-4) Last administered on 05/27/18at 16:30; Start 05/10/18 at 19:15 Chlorthalidone (Hygroton) 25 mg DAILY PO Last administered on 05/29/18at 09:06; Start 05/11/18 at 09:00 Dextrose (Dextrose 50%) 25 ml ASDIRECTED PRN IV SEE LABEL COMMENTS; Start 05/10/18 at 19:15 Diazepam (Valium) 5 mg Q8HP PRN PO ANXIETY; Start 05/10/18 at 19:15; Stop 05/16/18 at 18:08; Status DC Docusate Sodium (Colace) 100 mg TID PO Last administered on 05/20/18at 08:45; Start 05/10/18 at 21:00; Stop 05/20/18 at 10:43; Status DC Gabapentin (Neurontin) 300 mg TID PO Last administered on 05/29/18at 09:05; Start 05/10/18 at 21:00 Glucagon (Glucagon) 1 mg ASDIRECTED PRN SC SEE LABEL COMMENTS; Start 05/10/18 at 19:15 Glucose (Glucose) 16 GM ASDIRECTED PRN PO SEE LABEL COMMENTS; Start 05/10/18 at 19:15 Heparin Sodium (Porcine) (Heparin) 5,000 units Q8H SQ Last administered on 05/29/18at 06:12; Start 05/10/18 at 22:00 Home Med (Med Rec Complete!) ASDIRECTED XX ; Start 05/10/18 at 20:30; Stop 05/10/18 at 20:30; Status DC Insulin Human Lispro (HumaLOG INSULIN) SEE PROTOCOL TABLE AC SC Last administered on 05/29/18at 12:29; Start 05/11/18 at 07:30 Insulin Human Lispro (HumaLOG INSULIN) SEE PROTOCOL TABLE QHS SC ; Start 05/10/18 at 21:00 Lidocaine (Lidoderm Patch) 1 patch DAILY TD Last administered on 05/22/18at 08:37; Start 05/21/18 at 09:00; Stop 05/22/18 at 14:52; Status DC Lidocaine (Lidoderm Patch) 1 patch DAILY TD ; Start 05/24/18 at 13:15; Stop 05/27/18 at 11:36; Status DC Lidocaine (Lidoderm Patch) 1 patch QHS TD Last administered on 05/28/18at 22:05; Start 05/22/18 at 21:00 Lidocaine (Lidoderm Patch) 1 patch QHS TD ; Start 05/27/18 at 21:00 Metformin HCl (Glucophage) 1,000 mg BID@08,18 PO Last administered on 05/29/18at 09:05; Start 05/11/18 at 08:00 Metoclopramide HCl (Reglan) 5 mg Q6HP PRN PO NAUSEA OR VOMITING Last administered on 05/20/18at 10:50; Start 05/20/18 at 10:45 Metoprolol Succinate (TopROL XL) 25 mg DAILY PO Last administered on 05/29/18at 09:05; Start 05/11/18 at 09:00 Miconazole Nitrate (Monistat-7) 1 APPLICATORFUL VAGINALL... QHS PV ; Start 05/16/18 at 18:00; Stop 05/16/18 at 18:16; Status DC Miconazole Nitrate (Monistat-7) 1 dose QHS PV Last administered on 05/28/18at 22:06; Start 05/18/18 at 21:00; Stop 05/28/18 at 23:00; Status DC Miscellaneous (Unresolved Clarification Entry) SEE LABEL COMMENTS DAILY XX Last administered on 05/28/18at 09:00; Start 05/28/18 at 09:00; Stop 05/28/18 at 09:46; Status DC Nitrofurantoin Monoh/Nitrofur Macro (Macrobid) 100 mg BID PO ; Start 05/24/18 at 09:00; Stop 05/24/18 at 20:51; Status DC Nitrofurantoin Monoh/Nitrofur Macro (Macrobid) 100 mg BID PO Last administered on 05/29/18 09:06; Start 05/24/18 at 13:00; Stop 05/30/18 at 12:59 Non-Formulary Medication ( See Comment Field Below ) REMOVE LIDODERM PATCH DAILY@21 XX Last administered on 05/21/18at 21:46; Start 05/21/18 at 21:00; Stop 05/22/18 at 14:53; Status DC Non-Formulary Medication ( See Comment Field Below ) REMOVE LIDODERM PATCH DAILY@21 XX Last administered on 05/24/18at 21:10; Start 05/24/18 at 21:00; Stop 05/27/18 at 11:37; Status DC Non-Formulary Medication ( See Comment Field Below ) REMOVE LIDODERM PATCH F... DAILY XX Last administered on 05/28/18at 09:02; Start 05/28/18 at 09:00 Non-Formulary Medication ( See Comment Field Below ) REMOVE LIDODERM PATCH F... DAILY@0900 XX Last administered on 05/29/18 09:00; Start 05/23/18 at 09:00 Ondansetron HCl (Zofran) 4 mg Q6HP PRN PO NAUSEA OR VOMITING Last administered on 05/20/18 09:05; Start 05/20/18 at 08:45 Oxycodone HCl (Roxicodone, Oxyir) 5 mg Q4HP PRN PO PAIN Last administered on 05/11/18 15:27; Start 05/10/18 at 19:15; Stop 05/16/18 at 18:08; Status DC Polyethylene Glycol (Miralax) 1 pkt DAILYPRN PRN PO CONSTIPATION Last administered on 05/22/18 08:38; Start 05/14/18 at 13:30 Potassium Chloride (Micro-K Extencaps) 20 meq DAILY PO Last administered on 05/29/18 09:05; Start 05/23/18 at 10:00 Prednisone (Deltasone) 10 mg DAILY PO Last administered on 05/29/18 09:05; Start 05/11/18 at 09:00 Senna/Docusate Sodium (Senokot S) 1 tab BID PO Last administered on 05/29/18at 09:06; Start 05/20/18 at 21:00 Simvastatin (Zocor) 20 mg QHS PO Last administered on 05/28/18at 22:05; Start 05/10/18 at 21:00 Spironolactone (Aldactone) 25 mg BID PO Last administered on 05/29/18 09:06; S tart 05/15/18 at 21:00 Spironolactone (Aldactone) 25 mg QAM PO Last administered on 05/15/18at 08:21; Start 05/11/18 at 09:00; Stop 05/15/18 at 18:47; Status DC Zinc Oxide (Boudreauxs Butt Paste) APPLY TO AFFECTED AREA TID TOP Last administered on 05/29/18at 09:00; Start 05/10/18 at 21:00 BRITTNY DODGE MD May 29, 2018 14:15
[2018-05-29] MEDS ORDERED: LOPERAMIDE 2 MG CAP PO PRN (15:15)
[2018-05-29 19:57] VITALS: BP 123/78
[2018-05-29] MEDS: SIMVASTATIN 20 MG TAB PO SCH (20:10)
[2018-05-29] MEDS: LIDOCAINE 5% (LIDODERM) PATCH TD SCH ×2 (20:11)
[2018-05-30 06:00] VITALS: BP 117/78
[2018-05-30] MEDS: HEPARIN SOD (PORCINE) 5000 UNITS/ML VIAL SQ SCH ×3 (06:10→21:12)
[2018-05-30] MEDS: SPIRONOLACTONE 25 MG TAB PO SCH ×2 (08:52→21:11)
[2018-05-30] MEDS: CHLORTHALIDONE 25 MG TAB PO SCH (08:52)
[2018-05-30] MEDS: POTASSIUM CHLORIDE 10 MEQ SR TABLET PO SCH (08:52)
[2018-05-30] MEDS: predniSONE 10 MG TAB PO SCH (08:52)
[2018-05-30] MEDS: GABAPENTIN 300 MG CAP PO SCH ×3 (08:52→21:11)
[2018-05-30] MEDS: NITROFURANTOIN (MACROBID) 100 MG CAP PO SCH (08:53)
[2018-05-30] MEDS: BOUDREAUX'S BUTT PASTE 4OZ TOP SCH ×3 (08:53→21:13)
[2018-05-30] MEDS: metFORMIN (GLUCOPHAGE) 1000 MG TABLET PO SCH ×2 (08:53→17:18)
[2018-05-30] MEDS: METOPROLOL SUCC *XL* 25MG TAB (TopROL *XL*) PO SCH (08:53)
[2018-05-30] MEDS: HumaLOG INSULIN (NovoLOG) PER UNIT SC SCH ×4 (08:54→21:00)
[2018-05-30] MEDS: **NOTE PATIENT COMMENT** MISC XX SCH ×2 (08:54)
[2018-05-30] MEDS: SENOKOT S TAB PO SCH (08:56)
[2018-05-30 11:50] LABS: BASO % 0.3 % (0.0-1.0); EOS # 0.1 10^3/uL (0.0-0.50); EOS % 0.4 % (0.0-3.0); HEMATOCRIT 42.6 % (36.0-47.0); HEMOGLOBIN 14.4 g/dl (12.0-15.5); LYMPH # 2.6 10^3/uL (1.5-6.5); LYMPH % 22.1 % (24.0-44.0); MEAN CORPUSCULAR HEMOGLOBIN 29.8 pg (27.0-33.0); MEAN CORPUSCULAR HGB CONC 33.8 g/dl (32.0-36.5); MONO # 0.4 10^3/uL (0.0-0.8); MONO % 3.3 % (0.0-5.0); NEUTROPHILS # 8.5 10^3/uL (1.8-7.7); NEUTROPHILS % 73.3 % (36.0-66.0); PLATELET COUNT, AUTOMATED 346 10^3/uL (150-450); RED BLOOD COUNT 4.84 10^6/uL (4.00-5.40); WHITE BLOOD COUNT 11.7 10^3/uL (4.0-10.0)
--- NOTE | 2018-05-30 11:57 | IPNPDOC ---
Text Note Date of Service The patient was seen on 05/30/18. NOTE Subjective: Patient is a 22-year-old female with a PMHx of HTN, DM2, DLP, PCOS, Obestiy who presented to [facility] emergency department on 05/06/18 with bilateral lower extremity weakness after bending forward and feeling a popping sensation a few days earlier. At first she felt pain and later developed weakness with urinary incontinence and saddle region anesthesia. Lumbar Spine MRI on 05/06/18 showed Disc protrusion with moderate canal stenosis is present at L3-L4 vertebral level.,disc protrusion with severe canal stenosis and compression of the cauda equine nerve roots is present at L4-L5 vertebral level. Disc bulging with moderate canal stenosis L5-S1. The pt was evaluated by Dr. Bazzi who performed a L3-L5 decompressive laminectomy with L4/L5 and L5/S1 discectomies without complications. The pt was transferred to the care of Dr Teresa, YFN, 05/10/18. Patient was seen and examined at the bedside. Patient is indicated that she's been experiencing diarrhea; she is indicated that she's expressed at least 4-5 bowel movements daily. Describes bowel movements as loose but not watery. Denies any abdominal pain, nausea, vomiting. . He denies any chest pain, shortness of breath, palpitations or cough. Objective: Vitals (See below) General: Lying in bed, no acute distress, comfortable, AAOx3 HEENT: NC, AT, + Hirsutism CVS: RRR, +S1S2 Lungs: There is fair air entry bilaterally without evidence of wheezing, rhonchi or rales Abdomen: Abdomen is soft, without any distention or tenderness, of note there is obesity Extremities: No evidence of lower extremity edema, - Calf tenderness Neuro: Unchanged Assessment and plan: L3-L5 decompressive laminectomy with L5-L5 and L5-S1 discectomy 2/2 spinal stenosis & cauda equina syndrome - Management as per neurosurgery at [facility]; will follow up with Dr. Lockett - Comanagement with Dr. Teresa - Physical therapy, occupational therapy and pain management as per [facility] Urinary retention - MRI L Spine 05/26/18: 1. Bulging annulus at L3-4 with inferiorly extruded right paracentral disc herniation with mild impingement of the traversing nerve roots on the right side, status post bilateral laminectomy. Marked narrowing of both lateral recesses, right greater than left. 2. Bulging annulus at L4-5 and superiorly and inferiorly extruded disc herniation. A decompressive bilateral laminectomy is demonstrated. Marked bilateral lateral recess narrowing. 3. Bulging annulus at L5-S1 with large central disc herniation extending superiorly and inferiorly with mild impingement on the thecal sac. 4. Clumping of nerve roots at L3 and L4 may indicate arachnoiditis. - Findings were discussed with neurosurgery at [facility]; currently will f/u as an outpatient - Was suspected that given her previous history of overflow incontinence and the lack of flow, that she is having urinary retention, and less likely a new finding - If there are worsening symptoms will re-image / discuss with [facility] neurology - Outpatient f/u with neurosurgery HTN - BP well controlled - c/w chlorthalidone, metoprolol, spironolactone DLP - c/w Simvastatin DM2 - c/w ISS and Metformin PCOS - c/w Spironolactone and Metformin Diarrhea / Leukocytosis - likely 2/2 reactive etiology 2/2 corticosteroids - Patient has experienced loose stools - Remain afebrile / hemodynamically stable - Will discontinue all stool softeners - C. diff PCR pending - Will hold off on antibiotics s/p Hypokalemia DVT prophylaxis - c/w Heparin Disposition: - Hold stool softeners - Test for C. diff if diarrhea is still present VS,Fishbone, I+O VS, Fishbone, I+O Vital Signs Date Time Temp Pulse Resp B/P (MAP) Pulse Ox O2 Delivery O2 Flow Rate FiO2 05/30/18 08:53 84 117/78 05/30/18 06:00 98.0 16 95 I&O- Last 24 Hours up to 6 AM 05/30/18 06:00 Intake Total 1140 ml Output Total 1600 ml Balance -460 ml REILLY SINHA MD May 30, 2018 11:57
[2018-05-30 12:19] LABS: CALCIUM LEVEL 10.1 MG/DL (8.5-10.1); CREATININE FOR GFR 1.2 MG/DL (0.55-1.30); GLOMERULAR FILTRATION RATE 58.8 (>60)
[2018-05-30 14:00] VITALS: BP 131/80
[2018-05-30 20:00] VITALS: BP 125/77
[2018-05-30] MEDS: LIDOCAINE 5% (LIDODERM) PATCH TD SCH ×2 (21:00→21:12)
[2018-05-30] MEDS: SIMVASTATIN 20 MG TAB PO SCH (21:11)
[2018-05-31] MEDS: HEPARIN SOD (PORCINE) 5000 UNITS/ML VIAL SQ SCH (05:36)
[2018-05-31 06:00] VITALS: BP 124/84
[2018-05-31] MEDS: HumaLOG INSULIN (NovoLOG) PER UNIT SC SCH (07:30)
[2018-05-31] MEDS: metFORMIN (GLUCOPHAGE) 1000 MG TABLET PO SCH (08:40)
[2018-05-31] MEDS: CHLORTHALIDONE 25 MG TAB PO SCH (08:40)
[2018-05-31] MEDS: SPIRONOLACTONE 25 MG TAB PO SCH (08:40)
[2018-05-31 08:41] VITALS: BP 124/84
[2018-05-31] MEDS: predniSONE 10 MG TAB PO SCH (08:41)
[2018-05-31] MEDS: METOPROLOL SUCC *XL* 25MG TAB (TopROL *XL*) PO SCH (08:41)
[2018-05-31] MEDS: GABAPENTIN 300 MG CAP PO SCH (08:41)
[2018-05-31] MEDS: POTASSIUM CHLORIDE 10 MEQ SR TABLET PO SCH (08:41)
[2018-05-31] MEDS: **NOTE PATIENT COMMENT** MISC XX SCH ×2 (08:43)
[2018-05-31] MEDS: BOUDREAUX'S BUTT PASTE 4OZ TOP SCH (08:43)
[2018-05-31] MEDS ORDERED: CHLO25TA PO (09:46)
[2018-05-31] MEDS ORDERED: METF10004 PO (09:46)
[2018-05-31] MEDS ORDERED: ALDA25TA2 PO (09:46)
[2018-05-31] MEDS ORDERED: SIMV20TA2 PO (09:46)
[2018-05-31] MEDS ORDERED: GABA-843 PO (09:46)
[2018-05-31] MEDS ORDERED: KLOR10TA76 PO (09:46)
[2018-05-31] MEDS ORDERED: METO1TAB32 PO (09:46)
[2018-05-31] MEDS ORDERED: PRED10TA2 PO (09:46)
--- NOTE | 2018-05-31 10:02 | IPNPDOC ---
PM&R Progress Note DATE OF SERVICE: May 30, 2018 Seo Coordinator Progress Note Subjective: Patient reports she is feeling ready to go home tomorrow and that she feels comfortable self-cathing. REVIEW OF SYSTEMS: The following is a completed review of systems and has been reviewed. Review of systems otherwise unremarkable. PAIN: Patient self reports no pain EYES: Negative for recent vision changes EARS, NOSE, & THROAT:denies throat or ear pain, no dysphagia CARDIOVASCULAR: denies chest pain or palpitations PULMONARY: Negative. Denies shortness of breath GASTROINTESTINAL: +fecal incontinence (improving), +loose stools (improving) GENITOURINARY: +urinary retention (improving) MUSCULOSKELETAL: bilateral LE weakness NEUROLOGICAL: +cauda equina HEMATOLOGICAL: Negative SKIN: +sacral pressure ulcer, laminectomy incision PSYCHIATRIC: Unremarkable All other review of systems found to be negative. PHYSICAL EXAMINATION: VITAL SIGNS: Please see below. GENERAL: Pleasant and cooperative. No acute distress. HEENT: PERRL. Extraocular movements intact. Clear conjunctiva CARDIOVASCULAR: Regular rate and rhythm. No murmurs, rubs, or gallops LUNGS: Clear to auscultation bilaterally. No wheezes. No rhonchi ABDOMEN: Soft, nontender, nondistended. Positive bowel sounds. Normal active bowel sounds NEUROLOGICAL: Alert and oriented times three. Cranial nerves II through XII grossly intact. EXTREMITIES: 5\5 strength bilateral upper extremities. 4/5 bilateral hip flexors, 4/5 bilat knee extensors, 3/5 left ankle DF (lacking L5 contribution and unable to activate peroneus longus/brevis) 1/5 EHL, 3/5 ankle PF on left 0/5 right ankle DF or EHL, 2/5 ankle PF Sensation diminished to light touch right L4-S2 dermatomes, otherwise intact to light touch in all 4 limbs (-) Babinski bilat, (-) clonus absent patellar and ankle reflexes Skin: incision c/d/i with mild erythema, non tender to palpation, no induration -sacrum with erythema -right greater trochanter TTP, no swelling or erythema ASSESSMENT:22-year-old F with past medical history of PCOS and HTN who presents status post cauda equina syndrome: PLAN: 1. Rehab: PT/OT and assess for DME-Multipodus boots while in bed to stretch heel cords, able to ambulate further with RW, will need AFOs for bilateral foot drop, given she has sensory deficits she will need Custom-braces to prevent further deformity and protect her from skin breakdown, she will need these AFOs for greater than 6 months-she is currently ambulating short distances and predicted to be a community ambulator, consult placed - advance to room privileges with RW 2. Neuro: cauda equina syndrome s/p L3-L5 decompressive laminectomy with L4/L5 and L5/S1 discectomies performed 05/06/18, conus medullaris at L2 level-unclear at this time if spinal cord was affected in the setting of post-op edema, however initial imaging did not show cord signal abnormalities at L2 level -avoid NSAIDs, heavy lifting, and f/u with neurosurgery on 06/01/18 3. Cardio:pmg HTN and HLD-c/u increased Spironolactone for elevated BPs in setting of mild gbjxnzdsyhv-slcotwhie-pgybudtq consulted and recs appreciated 4. Endo: pmh PCOS and DM c/u increased dose of spironolactone, metformin, and insulin coverage 5. Pain: oxycodone prn, gabapentin for neuropathic pain 6. : admission UA and Ucx negative, s/p Guerra removal, c/u times void and bladder scan/PVRs, s/p 1x dose Diflucan for discharge- initially was voiding, now retaining, repeat Uxc +E. Coli s/p macrobid x 7days total 7. GI ppx: Protonix, optimize bowel regimen, loose stools resolved 8. DVT ppx: heparin, dopplers negative 9. SKin: turn q2, barrier cream to sacrum BID plus optifoam, silver Optifoam to lumbar incision- sutures to be removed 06/01/18 10. Hypokalmeia-resolved, c/u daily 20meq-stable 10. DIspo: 05/31/18, to home-progressing towards goals Allergies Coded Allergies: Penicillins (Verified Allergy, Intermediate, hives, 05/16/18) Vital Signs Vital Signs Date Time Temp Pulse Resp B/P (MAP) Pulse Ox O2 Delivery O2 Flow Rate FiO2 05/31/18 08:41 85 124/84 05/31/18 06:00 98.1 18 97 Laboratory Data CBC/BMP Laboratory Tests 05/30/18 11:39 Red Blood Count 4.84, Mean Corpuscular Volume 88.0, Mean Corpuscular Hemoglobin 29.8, Mean Corpuscular Hemoglobin Concent 33.8, Red Cell Distribution Width 12.5, Neutrophils (%) (Auto) 73.3 H, Lymphocytes (%) (Auto) 22.1 L, Monocytes (%) (Auto) 3.3, Eosinophils (%) (Auto) 0.4, Basophils (%) (Auto) 0.3, Neutrophils # (Auto) 8.5 H, Lymphocytes # (Auto) 2.6, Monocytes # (Auto) 0.4, Eosinophils # (Auto) 0.1, Basophils # (Auto) 0.0, Calcium Level 10.1 Labs 24H Laboratory Tests 2 05/30/18 11:14: Bedside Glucose (Misc Panel) 165H 05/30/18 11:39: Immature Granulocyte % (Auto) 0.6, White Blood Count 11.7H, Red Blood Count 4.84, Hemoglobin 14.4, Hematocrit 42.6, Mean Corpuscular Volume 88.0, Mean Jonna uscular Hemoglobin 29.8, Mean Corpuscular Hemoglobin Concent 33.8, Red Cell Distribution Width 12.5, Platelet Count 346, Neutrophils (%) (Auto) 73.3H, Lymphocytes (%) (Auto) 22.1L, Monocytes (%) (Auto) 3.3, Eosinophils (%) (Auto) 0.4, Basophils (%) (Auto) 0.3, Neutrophils # (Auto) 8.5H, Lymphocytes # (Auto) 2.6, Monocytes # (Auto) 0.4, Eosinophils # (Auto) 0.1, Basophils # (Auto) 0.0, Nucleated Red Blood Cells % (auto) 0.0, Anion Gap 9, Glomerular Filtration Rate 58.8L, Blood Urea Nitrogen 31H, Creatinine 1.20, Sodium Level 137, Potassium Level 4.0, Chloride Level 98, Carbon Dioxide Level 30, Calcium Level 10.1 05/30/18 16:25: Bedside Glucose (Misc Panel) 128H 05/30/18 20:02: Bedside Glucose (Misc Panel) 111H 05/31/18 06:26: Bedside Glucose (Misc Panel) 108H Microbiology Microbiology 05/21/18 Blood Culture - Final, Complete NO GROWTH AFTER 5 DAYS 05/21/18 Blood Culture - Final, Complete NO GROWTH AFTER 5 DAYS 05/22/18 Urine Culture - Final, Complete Escherichia Coli Lactobacillus Species Current Medications Current Medications Current Medications Acetaminophen (Tylenol Tab) 650 mg Q4HP PRN PO fever/MILD PAIN (PS 1-4) Last administered on 05/27/18at 16:30; Start 05/10/18 at 19:15 Chlorthalidone (Hygroton) 25 mg DAILY PO Last administered on 05/31/18at 08:40; Start 05/11/18 at 09:00 Dextrose (Dextrose 50%) 25 ml ASDIRECTED PRN IV SEE LABEL COMMENTS; Start 05/10/18 at 19:15 Diazepam (Valium) 5 mg Q8HP PRN PO ANXIETY; Start 05/10/18 at 19:15; Stop 05/16/18 at 18:08; Status DC Docusate Sodium (Colace) 100 mg TID PO Last administered on 05/20/18at 08:45; Start 05/10/18 at 21:00; Stop 05/20/18 at 10:43; Status DC Gabapentin (Neurontin) 300 mg TID PO Last administered on 05/31/18at 08:41; Start 05/10/18 at 21:00 Glucagon (Glucagon) 1 mg ASDIRECTED PRN SC SEE LABEL COMMENTS; Start 05/10/18 at 19:15 Glucose (Glucose) 16 GM ASDIRECTED PRN PO SEE LABEL COMMENTS; Start 05/10/18 at 19:15 Heparin Sodium (Porcine) (Heparin) 5,000 units Q8H SQ Last administered on 05/31/18at 05:36; Start 05/10/18 at 22:00 Home Med (Med Rec Complete!) ASDIRECTED XX ; Start 05/10/18 at 20:30; Stop 05/10/18 at 20:30; Status DC Insulin Human Lispro (HumaLOG INSULIN) SEE PROTOCOL TABLE AC SC Last admini stered on 05/30/18at 12:55; Start 05/11/18 at 07:30 Insulin Human Lispro (HumaLOG INSULIN) SEE PROTOCOL TABLE QHS SC ; Start 05/10/18 at 21:00 Lidocaine (Lidoderm Patch) 1 patch DAILY TD Last administered on 05/22/18at 08:37; Start 05/21/18 at 09:00; Stop 05/22/18 at 14:52; Status DC Lidocaine (Lidoderm Patch) 1 patch DAILY TD ; Start 05/24/18 at 13:15; Stop 05/27/18 at 11:36; Status DC Lidocaine (Lidoderm Patch) 1 patch QHS TD Last administered on 05/30/18at 21:12; Start 05/22/18 at 21:00 Lidocaine (Lidoderm Patch) 1 patch QHS TD ; Start 05/27/18 at 21:00 Loperamide HCl (Imodium) 2 mg ASDIRECTED PRN PO DIARRHEA Last administered on 05/29/18 18:36; Start 05/29/18 at 15:15; Stop 05/30/18 at 11:52; Status DC Metformin HCl (Glucophage) 1,000 mg BID@ PO Last administered on 05/31/18 08:40; Start 05/11/18 at 08:00 Metoclopramide HCl (Reglan) 5 mg Q6HP PRN PO NAUSEA OR VOMITING Last adminis tered on 05/20/18at 10:50; Start 05/20/18 at 10:45 Metoprolol Succinate (TopROL XL) 25 mg DAILY PO Last administered on 05/31/18at 08:41; Start 05/11/18 at 09:00 Miconazole Nitrate (Monistat-7) 1 APPLICATORFUL VAGINALL... QHS PV ; Start 05/16/18 at 18:00; Stop 05/16/18 at 18:16; Status DC Miconazole Nitrate (Monistat-7) 1 dose QHS PV Last administered on 05/28/18at 22:06; Start 05/18/18 at 21:00; Stop 05/28/18 at 23:00; Status DC Miscellaneous (Unresolved Clarification Entry) SEE LABEL COMMENTS DAILY XX ; Start 05/30/18 at 09:00; Stop 05/30/18 at 13:57; Status DC Miscellaneous (Unresolved Clarification Entry) SEE LABEL COMMENTS DAILY XX Last administered on 05/28/18at 09:00; Start 05/28/18 at 09:00; Stop 05/28/18 at 09:46; Status DC Nitrofurantoin Monoh/Nitrofur Macro (Macrobid) 100 mg BID PO ; Start 05/24/18 at 09:00; Stop 05/24/18 at 20:51; Status DC Nitrofurantoin Monoh/Nitrofur Macro (Macrobid) 100 mg BID PO Last administered on 05/30/18 08:53; Start 05/24/18 at 13:00; Stop 05/30/18 at 12:59; Status DC Non-Formulary Medication ( See Comment Field Below ) REMOVE LIDODERM PATCH DAILY@21 XX Last administered on 05/21/18at 21:46; Start 05/21/18 at 21:00; Stop 05/22/18 at 14:53; Status DC Non-Formulary Medication ( See Comment Field Below ) REMOVE LIDODERM PATCH DAILY@21 XX Last administered on 05/24/18at 21:10; Start 05/24/18 at 21:00; Stop 05/27/18 at 11:37; Status DC Non-Formulary Medication ( See Comment Field Below ) REMOVE LIDODERM PATCH F... DAILY XX Last administered on 05/30/18 08:54; Start 05/28/18 at 09:00 Non-Formulary Medication ( See Comment Field Below ) REMOVE LIDODERM PATCH F... DAILY@0900 XX Last administered on 05/31/18at 08:43; Start 05/23/18 at 09:00 Ondansetron HCl (Zofran) 4 mg Q6HP PRN PO NAUSEA OR VOMITING Last administered on 05/20/18 09:05; Start 05/20/18 at 08:45 Oxycodone HCl (Roxicodone, Oxyir) 5 mg Q4HP PRN PO PAIN Last administered on 05/11/18 15:27; Start 05/10/18 at 19:15; Stop 05/16/18 at 18:08; Status DC Polyethylene Glycol (Miralax) 1 pkt DAILYPRN PRN PO CONSTIPATION Last administered on 05/22/18 08:38; Start 05/14/18 at 13:30; Stop 05/30/18 at 11:52; Status DC Potassium Chloride (Micro-K Extencaps) 20 meq DAILY PO Last administered on 05/31/18 08:41; Start 05/23/18 at 10:00 Prednisone (Deltasone) 10 mg DAILY PO Last administered on 05/31/18 08:41; Start 05/11/18 at 09:00 Senna/Docusate Sodium (Senokot S) 1 tab BID PO Last administered on 05/29/18 09:06; Start 05/20/18 at 21:00; Stop 05/30/18 at 11:52; Status DC Simvastatin (Zocor) 20 mg QHS PO Last administered on 05/30/18at 21:11; Start 05/10/18 at 21:00 Spironolactone (Aldactone) 25 mg BID PO Last administered on 05/31/18at 08:40; Start 05/15/18 at 21:00 Spironolactone (Aldactone) 25 mg QAM PO Last administered on 05/15/18at 08:21; Start 05/11/18 at 09:00; Stop 05/15/18 at 18:47; Status DC Zinc Oxide (Boudreauxs Butt Paste) APPLY TO AFFECTED AREA TID TOP Last administered on 05/31/18at 08:43; Start 05/10/18 at 21:00 BRITTNY DODGE MD May 31, 2018 10:02
--- NOTE | 2018-05-31 11:12 | IPNPDOC ---
Text Note Date of Service The patient was seen on 05/31/18. NOTE Subjective: Patient is a 22-year-old female with a PMHx of HTN, DM2, DLP, PCOS, Obestiy who presented to [facility] emergency department on 05/06/18 with bilateral lower extremity weakness after bending forward and feeling a popping sensation a few days earlier. At first she felt pain and later developed weakness with urinary incontinence and saddle region anesthesia. Lumbar Spine MRI on 05/06/18 showed Disc protrusion with moderate canal stenosis is present at L3-L4 vertebral level.,disc protrusion with severe canal stenosis and compression of the cauda equine nerve roots is present at L4-L5 vertebral level. Disc bulging with moderate canal stenosis L5-S1. The pt was evaluated by Dr. Bazzi who performed a L3-L5 decompressive laminectomy with L4/L5 and L5/S1 discectomies without complications. The pt was transferred to the care of Dr Teresa, YFN, 05/10/18. Patient was seen and examined at the bedside. Patient has indicated that she will be leaving today. She denies chest pain, shortness of breath or palpitations. Notes that she has progressed well with physical therapy. Denies any nausea, vomiting, abdominal pain has reported that her diarrhea has resolved and she is formed stools. Denies any discomfort with urination. Objective: Vitals (See below) General: Lying in bed, no acute distress, comfortable, AAOx3 HEENT: NC, AT, + Hirsutism CVS: RRR, +S1S2 Lungs: Auscultation is clear bilaterally without evidence of wheezing, rhonchi or rales Abdomen: Obese but remains off without any distention or tenderness Extremities: Lower extremities are without any evidence of pitting edema, - Calf tenderness Neuro: Unchanged Assessment and plan: L3-L5 decompressive laminectomy with L5-L5 and L5-S1 discectomy 2/2 spinal stenosis & cauda equina syndrome - Management as per neurosurgery at [facility]; will follow up with Dr. Lockett - Comanagement with Dr. Teresa - Physical therapy, occupational therapy and pain management as per ARU - Patient has reported that she will be discharged today Urinary retention - MRI L Spine 05/26/18: 1. Bulging annulus at L3-4 with inferiorly extruded right paracentral disc herniation with mild impingement of the traversing nerve roots on the right side, status post bilateral laminectomy. Marked narrowing of both lateral r ecesses, right greater than left. 2. Bulging annulus at L4-5 and superiorly and inferiorly extruded disc herniation. A decompressive bilateral laminectomy is demonstrated. Marked bilateral lateral recess narrowing. 3. Bulging annulus at L5-S1 with large central disc herniation extending superiorly and inferiorly with mild impingement on the thecal sac. 4. Clumping of nerve roots at L3 and L4 may indicate arachnoiditis. - Findings were discussed with neurosurgery at [facility]; currently will f/u as an outpatient - Was suspected that given her previous history of overflow incontinence and the lack of flow, that she is having urinary retention, and less likely a new finding - If there are worsening symptoms will re-image / discuss with [facility] neurology - Outpatient f/u with neurosurgery HTN - BP well controlled - c/w chlorthalidone, metoprolol, spironolactone DLP - c/w Simvastatin DM2 - c/w ISS and Metformin PCOS - c/w Spironolactone and Metformin Leukocytosis - likely 2/2 reactive etiology 2/2 corticosteroids - Improving - Remain afebrile / hemodynamically stable - Will hold off on antibiotics s/p Diarrhea - Patient has noted improvement of her diarrhea; Reports her stools are becoming more formed - Remain afebrile / hemodynamically stable - s/p stool softeners s/p Hypokalemia DVT prophylaxis - c/w Heparin Disposition: - Anticipate discharge today VS,Jonatan, I+O VS, Jonatan, I+O Laboratory Tests 05/30/18 11:39 Red Blood Count 4.84, Mean Corpuscular Volume 88.0, Mean Corpuscular Hemoglobin 29.8, Mean Corpuscular Hemoglobin Concent 33.8, Red Cell Distribution Width 12.5, Neutrophils (%) (Auto) 73.3 H, Lymphocytes (%) (Auto) 22.1 L, Monocytes (%) (Auto) 3.3, Eosinophils (%) (Auto) 0.4, Basophils (%) (Auto) 0.3, Neutrophils # (Auto) 8.5 H, Lymphocytes # (Auto) 2.6, Monocytes # (Auto) 0.4, Eosinophils # (Auto) 0.1, Basophils # (Auto) 0.0, Calcium Level 10.1 Vital Signs Date Time Temp Pulse Resp B/P (MAP) Pulse Ox O2 Delivery O2 Flow Rate FiO2 05/31/18 08:41 85 124/84 05/31/18 06:00 98.1 18 97 I&O- Last 24 Hours up to 6 AM 05/31/18 06:00 Intake Total 1340 ml Output Total 1300 ml Balance 40 ml REILLY SINHA MD May 31, 2018 11:12
--- NOTE | 2018-06-12 15:22 | PMRDS ---
DATE OF ADMISSION: 05/10/2018 DATE OF DISCHARGE: 05/31/2018 CHIEF COMPLAINT/DISCHARGE DIAGNOSIS: Cauda equina syndrome. HISTORY OF PRESENT ILLNESS: This is a 22-year-old female with a past medical history of hypertension, PCOS, diabetes type 2, hyperlipidemia, presented to [facility] ED on 05/06/2018 complaining of bilateral lower extremity weakness after bending forward and feeling a popping sensation a few days earlier. At first he felt pain and later developed weakness with urinary incontinence and saddle region anesthesia. Lumbar spine MRI on 05/06/2018 showed: "Disc protrusion with moderate canal stenosis is present at L3-L4 vertebral level. Disc protrusion with severe canal stenosis and compression of the cauda equina nerve roots as present at L4-L5 vertebral level. Disc bulging with moderate canal stenosis . . . L5-S1 . . . level. The conus medullaris is positioned at L2 vetebral level. No increasing along the spinal cord." She was evaluated by Dr. Bazzi who performed an L3-L5 decompression laminectomy with L4-L5 and L5-S1 discectomies without complications. She reports that the strength in her legs improved significantly since the surgery but reports weakness in her ankles and some persistent sensory loss in her feet. She initially was unable to have bowel movements but was able to have a small bowel movement on 05/10/2018 prior to discharge to ARU. She was evaluated by therapy, found to have significant mobility and ADL impairments and deemed medically appropriate for discharge to ARU on 05/10/2018. PAST MEDICAL HISTORY: As per HPI. HOSPITAL COURSE: The patient was admitted and enrolled in a comprehensive PT OT program. She received 24-hour nursing supervision and weekly team meetings were held to discuss her progress. During her hospital course the patient had persistent bilateral foot drop worse on the right than the left, e commerce specialist was consulted for bilateral AFOs. The patient (cut off) for optimal blood pressure control. She was maintained on metformin and insulin coverage for her history of PCOS and diabetes. She was also maintained on oxycodone as needed for pain and gabapentin for neuropathic pain. Upon arrival, the patient's Guerra was removed and she was maintained on time voids with bladder scans and intermittent catheterization. She was treated for an E. coli urinary tract infection with Macrobid for 7 days with partial resolution of her urinary retention. However, the patient had difficulty voiding overall during her hospital course. She was provided with training per the nurses for bladder care and was able to demonstrate on multiple occasions her ability to self-catheterize. The patient was able to have bowel movements without any difficulty and was deemed functionally medically stable to return to home with outpatient therapy. DISCHARGE MEDICATIONS: - gabapentin 300 three times a day - simvastatin 20 nightly - spironolactone 25 twice a day - chlorthalidone - metformin - metoprolol FUNCTIONAL HISTORY: Upon discharge the patient was modified independent for all functional transfers with a rolling walker maintaining laminectomy precautions and in occupational therapy she was also modified independent for upper and lower body dressing, bathing and kitchen tasks. She was given room privileges and overall did very well and was discharged to home with outpatient therapy services and followup with her neurosurgeon and outpatient neurology.
== END 2018-05-31 11:30 | disposition home or self-care (01) | DRG 48 ==
LOC: M PM&R 17:40
PROVIDERS: ADMIT Physical Medicine & Rehabilitation; ATTEND Physical Medicine & Rehabilitation
DX: G83.4 Cauda equina syndrome (principal); I10 Essential (primary) hypertension; E66.01 Morbid (severe) obesity due to excess calories; E11.9 Type 2 diabetes mellitus without complications; D72.829 Elevated white blood cell count, unspecified; E28.2 Polycystic ovarian syndrome; Z88.0 Allergy status to penicillin; E87.6 Hypokalemia; E78.5 Hyperlipidemia, unspecified; Z79.899 Other long term (current) drug therapy; Z79.52 Long term (current) use of systemic steroids; Z68.39 Body mass index [BMI] 39.0-39.9, adult; R31.9 Hematuria, unspecified; R19.7 Diarrhea, unspecified

== ENCOUNTER 2018-06-01 15:51 | Emergency (ER) | payer OTHER ==
[~2018-06-01] VITALS: Ht 157.5 cm; Wt 100.0 kg
[~2018-06-01 15:51] MED LIST changes: +ACET1TAB55 PO; +ALDA25TA2 PO; +CHLO25TA PO; +CHLO50TA PO; +DIAZ5TAB PO; +GABA-843 PO; +GLYC2SUP PR; +KLOR10TA76 PO; +METO1TAB32 PO; +MIRA3350 PO; +OXYC-517 PO; +PRED10TA2 PO; +PREVTAB2 PO; +SENN18TA PO; +TOPR25TA PO; +[UNRECOGNIZED DRUG - CODE] SC
[2018-06-01 18:44] VITALS: BP 157/82
== END 2018-06-01 18:59 | disposition left against medical advice (07) ==
LOC: M ED 15:51
DX: R33.9 Retention of urine, unspecified (principal); M21.6X1 Other acquired deformities of right foot; E11.9 Type 2 diabetes mellitus without complications; I10 Essential (primary) hypertension; E78.5 Hyperlipidemia, unspecified; E28.2 Polycystic ovarian syndrome; Z79.899 Other long term (current) drug therapy; Z88.0 Allergy status to penicillin

== ENCOUNTER → 2018-06-19 | Outpatient (RCR) | payer OTHER | LOC: M PT 06-07 11:53 | PROVIDERS: ATTEND Neurological Surgery | DX: G83.4 Cauda equina syndrome (principal) ==

== ENCOUNTER → 2018-07-20 | Outpatient (RCR) | payer OTHER | LOC: M PT 06-21 13:37 | PROVIDERS: ATTEND Neurological Surgery | DX: G83.4 Cauda equina syndrome (principal) ==

== ENCOUNTER 2018-08-17 12:09 | Outpatient (RCR) | payer OTHER | END 2018-08-19 | LOC: M PT 12:09 | PROVIDERS: ATTEND Neurological Surgery | DX: R26.9 Unspecified abnormalities of gait and mobility (principal) ==

== ENCOUNTER → 2018-09-10 | Outpatient (REF) | payer OTHER ==
[2018-09-10 14:05] LABS: ALBUMIN 3.7 GM/DL (3.2-5.2); ALT/SGPT 32 U/L (12-78); BILIRUBIN,TOTAL 0.2 MG/DL (0.2-1.0); BLOOD UREA NITROGEN 14 MG/DL (7-18); CALCIUM LEVEL 9.1 MG/DL (8.5-10.1); CARBON DIOXIDE LEVEL 27 MEQ/L (21-32); CHLORIDE LEVEL 106 MEQ/L (98-107); CREATININE FOR GFR 0.77 MG/DL (0.55-1.30); GLOMERULAR FILTRATION RATE > 60.0 (>60); GLUCOSE, FASTING 117 MG/DL (70-100); POTASSIUM SERUM 3.8 MEQ/L (3.5-5.1); SODIUM LEVEL 140 MEQ/L (136-145); TOTAL PROTEIN 7.6 GM/DL (6.4-8.2)
[2018-09-10 14:46] LABS: HEMOGLOBIN A1c 6.7 %
[2018-09-10 15:21] LABS: HEMOGLOBIN 13.3 g/dl (12.0-15.5); MEAN CORPUSCULAR HEMOGLOBIN 28.9 pg (27.0-33.0); MEAN CORPUSCULAR HGB CONC 32.4 g/dl (32.0-36.5); MEAN CORPUSCULAR VOLUME 89.1 fl (80.0-96.0); PLATELET COUNT, AUTOMATED 347 10^3/uL (150-450); WHITE BLOOD COUNT 10.6 10^3/uL (4.0-10.0)
== END ==
LOC: M LAB REF 13:05
PROVIDERS: ATTEND Surgery
DX: T14.8XXA Other injury of unspecified body region, initial encounter (principal); W18.30XA Fall on same level, unspecified, initial encounter; Y92.009 Unspecified place in unspecified non-institutional (private) residence as the place of occurrence of the external cause

== ENCOUNTER → 2018-09-19 | Outpatient (RCR) | payer OTHER | LOC: M PT 08-20 12:34 | PROVIDERS: ATTEND Neurological Surgery | DX: G83.4 Cauda equina syndrome (principal) ==

== ENCOUNTER 2018-10-19 13:00 | Outpatient (RCR) | payer OTHER | END 2018-10-20 | LOC: M PT 13:00 | PROVIDERS: ATTEND Neurological Surgery | DX: Z51.89 Encounter for other specified aftercare (principal); G83.4 Cauda equina syndrome; R26.89 Other abnormalities of gait and mobility ==

== ENCOUNTER → 2018-11-19 | Outpatient (RCR) | payer OTHER | LOC: M PT 10-26 13:23 | PROVIDERS: ATTEND Neurological Surgery | DX: Z51.89 Encounter for other specified aftercare (principal); G83.4 Cauda equina syndrome ==

== ENCOUNTER 2018-12-18 09:17 | Outpatient (RCR) | payer OTHER | END 2018-12-20 | LOC: M PT 09:17 | PROVIDERS: ATTEND Neurological Surgery | DX: Z51.89 Encounter for other specified aftercare (principal); G83.4 Cauda equina syndrome ==

== ENCOUNTER → 2018-12-24 | Outpatient (REF) | payer OTHER ==
[2018-12-24 11:58] LABS: BASO # 0.1 10^3/uL (0.0-0.2); BASO % 0.5 % (0.0-1.0); EOS # 0.2 10^3/uL (0.0-0.5); EOS % 1.8 % (0.0-3.0); HEMATOCRIT 42.8 % (36.0-47.0); HEMOGLOBIN 13.8 g/dl (12.0-15.5); LYMPH # 2.3 10^3/uL (1.5-5.0); MEAN CORPUSCULAR HEMOGLOBIN 29.2 pg (27.0-33.0); MEAN CORPUSCULAR HGB CONC 32.2 g/dl (32.0-36.5); MEAN CORPUSCULAR VOLUME 90.5 fl (80.0-96.0); MONO # 0.5 10^3/uL (0.0-0.8); NEUTROPHILS # 7.3 10^3/uL (1.5-8.5); NEUTROPHILS % 70.4 % (36.0-66.0); PLATELET COUNT, AUTOMATED 393 10^3/uL (150-450); RED BLOOD COUNT 4.73 10^6/uL (4.00-5.40); WHITE BLOOD COUNT 10.3 10^3/uL (4.0-10.0)
[2018-12-24 12:45] LABS: MAU/CREAT RATIO 46.2 MCG/MG (0.0-30.0)
[2018-12-24 12:48] LABS: ALT/SGPT 19 U/L (12-78); BILIRUBIN,TOTAL 0.4 MG/DL (0.2-1.0); BLOOD UREA NITROGEN 11 MG/DL (7-18); CALCIUM LEVEL 8.7 MG/DL (8.5-10.1); CARBON DIOXIDE LEVEL 29 MEQ/L (21-32); CHLORIDE LEVEL 101 MEQ/L (98-107); CHOLESTEROL LEVEL 252 MG/DL (<200); CHOLESTEROL RISK RATIO 6.461 (<5); CREATININE FOR GFR 0.83 MG/DL (0.55-1.30); FREE T4 1.12 NG/DL (0.76-1.46); GLOMERULAR FILTRATION RATE > 60.0 (>60); GLUCOSE, FASTING 126 MG/DL (70-100); HDL CHOLESTEROL 39 MG/DL (>40); LDL CHOLESTEROL 168 MG/DL (<100); NON-HDL-C 213 MG/DL; POTASSIUM SERUM 3.9 MEQ/L (3.5-5.1); SODIUM LEVEL 139 MEQ/L (136-145); TOTAL PROTEIN 7.9 GM/DL (6.4-8.2); TRIGLYCERIDES LEVEL 226 MG/DL (<150)
[2018-12-24 13:01] LABS: HEMOGLOBIN A1c 6.5 %
== END ==
LOC: M SFHCPLAZ 09:12
PROVIDERS: ATTEND Nurse Practitioner Family
DX: E11.9 Type 2 diabetes mellitus without complications (principal); E78.2 Mixed hyperlipidemia

== ENCOUNTER 2019-01-15 09:30 | Outpatient (RCR) | payer OTHER ==
[~2019-01-15 09:30] MED LIST changes: -SIMV20TA2 PO; +SIMV20TA22 PO
== END 2019-01-19 ==
LOC: M PT 09:30
PROVIDERS: ATTEND Neurological Surgery
DX: G83.4 Cauda equina syndrome (principal); Z51.89 Encounter for other specified aftercare

== ENCOUNTER 2019-02-26 12:23 | Outpatient (RCR) | payer OTHER | END 2019-03-22 | LOC: M PT 12:23 | PROVIDERS: ATTEND Neurological Surgery | DX: Z47.89 Encounter for other orthopedic aftercare (principal) ==

== ENCOUNTER → 2019-03-26 | Outpatient (REF) | payer OTHER | LOC: M SFHCWAGY 12:54 | PROVIDERS: ATTEND Nurse Practitioner Women's Health | DX: Z12.4 Encounter for screening for malignant neoplasm of cervix (principal) ==

== ENCOUNTER 2019-05-13 08:16 | Outpatient (RCR) | payer OTHER | END 2019-05-21 | LOC: M PT 08:16 | PROVIDERS: ATTEND Neurological Surgery | DX: G83.4 Cauda equina syndrome (principal) ==

== ENCOUNTER → 2019-12-11 | Outpatient (REF) | payer OTHER ==
[2019-12-11 14:09] LABS: BASO # 0.1 10^3/uL (0.0-0.2); BASO % 0.4 % (0.0-1.0); EOS # 0.1 10^3/uL (0.0-0.5); EOS % 0.4 % (0.0-3.0); HEMATOCRIT 44.4 % (36.0-47.0); HEMOGLOBIN 14.3 g/dl (12.0-15.5); LYMPH # 2.7 10^3/uL (1.5-5.0); LYMPH % 21.9 % (24.0-44.0); MEAN CORPUSCULAR HEMOGLOBIN 28.3 pg (27.0-33.0); MEAN CORPUSCULAR HGB CONC 32.2 g/dl (32.0-36.5); MEAN CORPUSCULAR VOLUME 87.9 fl (80.0-96.0); MONO # 0.6 10^3/uL (0.0-0.8); MONO % 4.5 % (0.0-5.0); NEUTROPHILS # 8.9 10^3/uL (1.5-8.5); NEUTROPHILS % 72.3 % (36.0-66.0); PLATELET COUNT, AUTOMATED 393 10^3/uL (150-450); RED BLOOD COUNT 5.05 10^6/uL (4.00-5.40); WHITE BLOOD COUNT 12.4 10^3/uL (4.0-10.0)
[2019-12-11 14:43] LABS: ALBUMIN 4.1 GM/DL (3.2-5.2); ALT/SGPT 22 U/L (12-78); BILIRUBIN,TOTAL 0.7 MG/DL (0.2-1.0); BLOOD UREA NITROGEN 13 MG/DL (7-18); CALCIUM LEVEL 9.7 MG/DL (8.5-10.1); CARBON DIOXIDE LEVEL 30 MEQ/L (21-32); CHLORIDE LEVEL 100 MEQ/L (98-107); CHOLESTEROL LEVEL 234 MG/DL (<200); CREATININE FOR GFR 0.99 MG/DL (0.55-1.30); FREE T4 1.12 NG/DL (0.76-1.46); GLOMERULAR FILTRATION RATE > 60.0 (>60); GLUCOSE, FASTING 150 MG/DL (70-100); HDL CHOLESTEROL 45 MG/DL (>40); LDL CHOLESTEROL 159 MG/DL (<100); NON-HDL-C 189 MG/DL; POTASSIUM SERUM 4.4 MEQ/L (3.5-5.1); SODIUM LEVEL 136 MEQ/L (136-145); TOTAL PROTEIN 7.9 GM/DL (6.4-8.2); TRIGLYCERIDES LEVEL 148 MG/DL (<150)
[2019-12-11 14:43] LABS: HEMOGLOBIN A1c 6.5 %
[2019-12-11 14:52] LABS: MAU/CREAT RATIO 8.7 MCG/MG (0.0-30.0)
== END ==
LOC: M SFHCPLAZ 08:53
PROVIDERS: ATTEND Nurse Practitioner Family
DX: I10 Essential (primary) hypertension (principal); E11.9 Type 2 diabetes mellitus without complications; E78.2 Mixed hyperlipidemia

== ENCOUNTER → 2020-06-10 | Outpatient (REF) | payer OTHER ==
[~2020-06-10] MED LIST changes: +GABA-282 PO; -GABA-843 PO
[2020-06-10 13:44] LABS: BASO # 0.1 10^3/uL (0.0-0.2); BASO % 0.6 % (0.0-1.0); EOS % 0.5 % (0.0-3.0); HEMATOCRIT 43.1 % (36.0-47.0); HEMOGLOBIN 13.9 g/dl (12.0-15.5); LYMPH # 2.2 10^3/uL (1.5-5.0); LYMPH % 24.8 % (24.0-44.0); MEAN CORPUSCULAR HGB CONC 32.3 g/dl (32.0-36.5); MEAN CORPUSCULAR VOLUME 89.8 fl (80.0-96.0); MONO # 0.5 10^3/uL (0.0-0.8); MONO % 5.9 % (2.0-8.0); NEUTROPHILS # 5.9 10^3/uL (1.5-8.5); NEUTROPHILS % 67.9 % (36.0-66.0); PLATELET COUNT, AUTOMATED 354 10^3/uL (150-450); WHITE BLOOD COUNT 8.8 10^3/uL (4.0-10.0)
[2020-06-10 14:21] LABS: HEMOGLOBIN A1c 6.5 %
[2020-06-10 14:22] LABS: MALB URINE SIEMENS 29.1 MG/L; MAU/CREAT RATIO 10.3 MCG/MG (0.0-30.0)
[2020-06-10 14:34] LABS: ALT/SGPT 31 U/L (12-78); BILIRUBIN,TOTAL 0.6 MG/DL (0.2-1.0); BLOOD UREA NITROGEN 11 MG/DL (7-18); CALCIUM LEVEL 9.5 MG/DL (8.5-10.1); CARBON DIOXIDE LEVEL 28 MEQ/L (21-32); CHLORIDE LEVEL 104 MEQ/L (98-107); CHOLESTEROL LEVEL 284 MG/DL (<200); CHOLESTEROL RISK RATIO 6.604 (<5); CREATININE FOR GFR 0.84 MG/DL (0.55-1.30); FREE T4 1.09 NG/DL (0.76-1.46); GLOMERULAR FILTRATION RATE > 60.0 (>60); GLUCOSE, FASTING 140 MG/DL (70-100); HDL CHOLESTEROL 43 MG/DL (>40); LDL CHOLESTEROL 210 MG/DL (<100); NON-HDL-C 241 MG/DL; POTASSIUM SERUM 4.5 MEQ/L (3.5-5.1); SODIUM LEVEL 138 MEQ/L (136-145); THYROID STIMULATING HORMONE 0.817 uIU/ML (0.358-3.740); TOTAL PROTEIN 7.9 GM/DL (6.4-8.2); TRIGLYCERIDES LEVEL 153 MG/DL (<150)
== END ==
LOC: M SFHCPLAZ 10:02
PROVIDERS: ATTEND Nurse Practitioner Family
DX: I10 Essential (primary) hypertension (principal); E11.9 Type 2 diabetes mellitus without complications; E78.2 Mixed hyperlipidemia

== ENCOUNTER → 2022-05-16 | Outpatient (CLI) | payer OTHER ==
[~2022-05-16] MED LIST changes: +GLYC1SUP37 PR; -GLYC2SUP PR; -KLOR10TA76 PO; +POTA-136 PO
[2022-05-16 14:20] LABS: BASO # 0.1 10^3/uL (0.0-0.2); BASO % 0.7 % (0.0-1.0); EOS # 0.2 10^3/uL (0.0-0.5); HEMATOCRIT 45.2 % (36.0-47.0); HEMOGLOBIN 14.8 g/dl (12.0-15.5); LYMPH # 2.8 10^3/uL (1.5-5.0); LYMPH % 28.3 % (24.0-44.0); MEAN CORPUSCULAR HEMOGLOBIN 28.6 pg (27.0-33.0); MEAN CORPUSCULAR HGB CONC 32.7 g/dl (32.0-36.5); MEAN CORPUSCULAR VOLUME 87.4 fl (80.0-96.0); MONO # 0.6 10^3/uL (0.0-0.8); MONO % 5.6 % (2.0-8.0); NEUTROPHILS # 6.2 10^3/uL (1.5-8.5); PLATELET COUNT, AUTOMATED 302 10^3/uL (150-450); RED BLOOD COUNT 5.17 10^6/uL (4.00-5.40); WHITE BLOOD COUNT 9.9 10^3/uL (4.0-10.0)
[2022-05-16 14:35] LABS: HEMOGLOBIN A1c 10.8 % (4.0-6.0)
[2022-05-16 15:01] LABS: ALBUMIN 3.8 G/DL (3.2-5.2); ALKALINE PHOSPHATASE 64 U/L (46-116); ALT/SGPT 46 U/L (7.0-40); AST/SGOT 28 U/L (<34); BILIRUBIN,TOTAL 0.7 MG/DL (0.3-1.2); BLOOD UREA NITROGEN 13 MG/DL (9-23); CARBON DIOXIDE LEVEL 29 MMOL/L (20-31); CHLORIDE LEVEL 102 MMOL/L (98-107); CHOLESTEROL LEVEL 260 MG/DL (<200); CHOLESTEROL RISK RATIO 6.41 (<5); CREATININE FOR GFR 0.74 MG/DL (0.55-1.30); GLOMERULAR FILTRATION RATE > 60.0 (>60); GLUCOSE, FASTING 223 MG/DL (60-100); HDL CHOLESTEROL 40.5 MG/DL (>40); LDL CHOLESTEROL 190.3 MG/DL (<100); NON-HDL-C 219.5 MG/DL; POTASSIUM SERUM 4.7 MMOL/L (3.5-5.1); SODIUM LEVEL 138 MMOL/L (136-145); THYROID STIMULATING HORMONE 0.818 uIU/ML (0.55-4.78); TOTAL PROTEIN 7.2 G/DL (5.7-8.2); TRIGLYCERIDES LEVEL 146 MG/DL (<150)
[2022-05-16 15:03] LABS: FREE T4 1.22 NG/DL (0.89-1.76)
[2022-05-16 17:49] LABS: CREATININE, URINE 161.2 MG/DL
== END ==
LOC: M PLALAB 11:53
PROVIDERS: ATTEND Nurse Practitioner Family
DX: E78.2 Mixed hyperlipidemia (principal); E11.9 Type 2 diabetes mellitus without complications; I10 Essential (primary) hypertension

== ENCOUNTER 2024-12-24 10:07 | Emergency (ER) | payer OTHER, SELFPAY ==
[~2024-12-24] VITALS: Ht 157.5 cm; Wt 108.0 kg
[~2024-12-24 10:07] MED LIST changes: -CYCL5TAB PO; +CYCL5TAB4 PO; +GABA-1172 PO; -GABA-282 PO; +SENN-165 PO; -SENN18TA PO
[2024-12-24 10:08] VITALS: TEMP 96.8
[2024-12-24 11:00] VITALS: BP 143/86; O2SAT 98
[2024-12-24] MEDS ORDERED: COLA100C5 PO (11:04)
[2024-12-24] MEDS ORDERED: ANUS25SU PR (11:04)
== END 2024-12-24 11:17 | disposition home or self-care (01) ==
LOC: M ED 10:07
DX: K64.8 Other hemorrhoids (principal); I10 Essential (primary) hypertension; E11.9 Type 2 diabetes mellitus without complications; E78.5 Hyperlipidemia, unspecified; E28.2 Polycystic ovarian syndrome; Z88.0 Allergy status to penicillin; Z79.1 Long term (current) use of non-steroidal anti-inflammatories (NSAID); Z79.899 Other long term (current) drug therapy; Z79.4 Long term (current) use of insulin